=== PATIENT | male | born 1985 | race Caucasian/White ===

== ENCOUNTER 2020-11-14 15:41 | Outpatient (REF) | payer MEDICARE, MEDICAID, SELFPAY ==
--- NOTE | 2020-11-14 15:48 | XR_ITS ---
EXAMINATION: XR HAND, LEFT CLINICAL INFORMATION: Soft tissue infection COMPARISON: Previous left hand and wrist x-ray October 2017 TECHNIQUE: PA, lateral, and oblique views of the left hand. FINDINGS: Bone alignment is normal. No fracture or dislocation is seen. There are mild degenerative changes at the first SHELTER joint. Joint spaces are otherwise normal. Soft tissues are normal. XR/XR hand LT min 3V IMPRESSION: Mild arthritis at the first SHELTER joint.
== END 2020-11-14 15:42 | disposition home or self-care (01) ==
LOC: HO.HMGCX 15:41
PROVIDERS: PCP Internal Medicine; Visit Provider Nurse Practitioner Family
DX: L08.9 Local infection of the skin and subcutaneous tissue, unspecified (principal)
CPT/HCPCS: 73130

== ENCOUNTER 2021-07-01 | Outpatient (REF) | payer MEDICARE, MEDICAID, SELFPAY | END 2021-07-01 00:01 | disposition home or self-care (01) | LOC: HO.LNP | PROVIDERS: Visit Provider Hospitalist | DX: L98.499 Non-pressure chronic ulcer of skin of other sites with unspecified severity (principal) | CPT/HCPCS: 87071; 87077; 87186; 87205 ==

== ENCOUNTER 2021-07-09 08:00 | Outpatient (RCR) | payer MEDICARE, MEDICAID, SELFPAY ==
--- NOTE | ~2021-07-09 | XR_ITS ---
EXAMINATION: XR ELBOW, RIGHT CLINICAL INFORMATION: Nonhealing wound COMPARISON: X-ray the right elbow October 2017 TECHNIQUE: 4 views of the right elbow FINDINGS: Exam is slightly limited given the obliquity of some of the projections and/or positioning. Probable edema or soft tissue swelling along the medial posterior aspect of the elbow and proximal forearm. Possible mild arthrosis of the humeral ulnar joint No effusion. No fracture. XR/XR elbow RT min 3V IMPRESSION: Slightly limited examination given projections. Probable mild subcutaneous edema Question mild arthrosis of the humeral ulnar joint I do not see a soft tissue defect
== END 2021-09-17 09:16 | disposition home or self-care (01) ==
LOC: HO.WCC 08:00
PROVIDERS: PCP Internal Medicine; Visit Provider Physician Assistant
DX: Z09 Encounter for follow-up examination after completed treatment for conditions other than malignant neoplasm (principal); M70.21 Olecranon bursitis, right elbow; L94.1 Linear scleroderma; Z87.2 Personal history of diseases of the skin and subcutaneous tissue
CPT/HCPCS: 73080; 99212; 99213

== ENCOUNTER 2021-08-08 09:09 | Outpatient (REF) | payer MEDICARE, MEDICAID, SELFPAY ==
--- NOTE | ~2021-08-08 | NM_ITS ---
EXAMINATION: NM RADIONUCLIDE WHITE BLOOD CELL STUDY CLINICAL INFORMATION: Right elbow wound, rule out osteomyelitis. COMPARISON: Radiographs of the right elbow dated 07/11/[address] scan of the abdomen and pelvis dated 08/23/2018 are available for comparison. TECHNIQUE: Initial rapid sequence images were obtained over the chest and upper extremities during the bolus injection of of 7.1 mCi Tc-99m Ceretec labeled autologous white cells. Multiple gamma scintillation camera images of the whole-body with multiple views of the chest and upper extremities were performed 3 hours later. Additional images of the chest and abdomen were obtained to demonstrate physiological white blood cell tagging. FINDINGS: Initial rapid sequence images show no foci of abnormally increased flow at any site. The blood pool images obtained immediately following the flow study show no foci of abnormally increased activity, in particular in the right elbow region. There is a rounded focus of relatively decreased activity present in the inferior lateral aspect of the right lobe of the liver which may represent the liver contour at this site but a mass at this site cannot be excluded. The delayed static images show no foci of abnormally increased activity at any site. In particular, there is no abnormal activity in the region of the right elbow. Again noted is a rounded markedly photopenic region in the inferior right lateral aspect of the liver. Also, there is moderate enlargement of the spleen which measures approximately 16 cm in greatest length. NM/NM white blood scan IMPRESSION: 1. There are no foci of abnormal activity at any site suggest a focus of infection. In particular, there is no abnormal activity in the right elbow region suspicious for focus of infection at this site. 2. A rounded photopenic defect in the region of the inferior lateral aspect of the right lobe of the liver is noted, and this is of uncertain clinical significance. While this may represent the shape of the liver in this region, a mass at this site cannot be ruled out. Further characterization of this region with a CT scan of the abdomen performed with intravenous contrast is recommended.
== END 2021-08-08 09:10 | disposition home or self-care (01) ==
LOC: HO.MRI 09:09
PROVIDERS: Visit Provider Physician Assistant
DX: S51.001D Unspecified open wound of right elbow, subsequent encounter (principal)
CPT/HCPCS: 78306; A9521

== ENCOUNTER → 2021-09-25 15:02 | Outpatient (REF) | payer MEDICARE, MEDICAID, SELFPAY ==
--- NOTE | 2021-09-25 15:05 | HM_ITS ---
Total monitoring time 3 days and 10 hours. Underlying rhythm is sinus. Minimum heart rate 75/Min. Maximum 154/Min. Average 102/Min. No atrial fibrillation or flutter or AV blocks or pauses. Frequent supraventricular ectopy; isolated beats, couplets, short runs; longest 22 beats. Overall burden 7%. Occasional PVCs-3 morphologies, 25 couplets. Minimal burden. Patient's symptoms including palpitations, skipping, shortness of breath associated with supraventricular and ventricular ectopy, sinus tachycardia. MTDD
== END ==
LOC: HO.CARD 15:02
PROVIDERS: PCP Internal Medicine; Visit Provider Nurse Practitioner Family
DX: R00.2 Palpitations (principal)
CPT/HCPCS: 93242

== ENCOUNTER 2023-02-04 14:45 | Outpatient (REF) | payer MEDICARE, MEDICAID, SELFPAY | END 2023-02-04 14:46 | disposition home or self-care (01) | LOC: HO.LAB 14:45 | PROVIDERS: Visit Provider Pharmacist | DX: Z13.89 Encounter for screening for other disorder (principal) ==

== ENCOUNTER 2023-08-18 12:34 | Outpatient (AMB) | payer OTHER, MEDICAID, SELFPAY ==
[2023-08-18 12:36] VITALS: BP 130/92; PULSE 84; O2SAT 99; BMI 27.9
--- NOTE | 2023-08-18 12:36 | MHC.PC.OV ---
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 Accompanied by: Self / Same As Patient Allergies shellfish Allergy (Unknown, Uncoded 08/18/23 13:07) anaphylaxis Medication List - Last Reconciled 08/18/23 by Jd Kumar MD aspirin 81 mg PO DAILY blood pressure monitor As directed epinephrine 0.3 mg IM ONCE PRN ergocalciferol (vitamin D2) 1,250 mcg PO QWEEK gabapentin 300 mg PO TID ibuprofen 800 mg PO BID PRN metoprolol succinate ER 25 mg PO DAILY omeprazole 40 mg PO DAILY prednisone 10 mg PO DAILY PRN sildenafil (pulm.hypertension) 20 mg PO TID vitamin A 1 cap PO DAILY zinc sulfate 100 mg PO BEDTIME Tobacco use date assessed: 08/18/23 Dental Screening Dental Screen Date: 08/18/23 Did you have a dental visit in the last 12 months?: No Did you have a dental problem in the last 6 months where you did not have access to dental care?: No Was dental information given to patient?: No HPI Annual Physical HPI Details Patient comes in today for his annual physical examination States that he is still experiencing diffuse pain and multiple joint pains - chronic Patient has systemic sclerosis and is currently receiving chemotherapy with rheumatology at [facility] in [place] every few weeks States that he has noticed that his blood pressure has been running high often lately Reports (+) on and off headaches at times; denies any dizziness He denies any exertional chest pains; states that he does have some MARTINEZ at times Still has occasional palpitations but states that they are mostly mild and transient and not like the ones he had before his cardiac ablation in 2019 No nausea/vomiting, no abdominal pain - states that 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 and he is on Omeprazole 40 mg daily to prophylax against reflux disease and ulcers States that he already had EGD done a couple of times in the past No change in bowel habits noted - has intermittent loose stools, which is also chronic Denies any acute urinary symptoms Relates that he has problems sleeping at night on a daily basis for a while now; has taken some OTC Melatonin in the past, which helps somewhat but states that he does not take it daily as he prefers not to take additional meds as much as possible considering that he is already on a lot of medications [facility] Medical History (Updated 08/24/23 @ 04:48 by Jd Kumar MD) Vitamin D deficiency Pulmonary hypertension Systemic sclerosis Atrial fibrillation Scleroderma Surgical History (Updated 08/18/23 @ 13:49 by Jd Kumar MD) History of penile implant Hx of foot surgery (~06/2023) History of radiofrequency ablation (RFA) procedure for cardiac arrhythmia (~06/2019) History of insertion of tunneled central venous catheter (CVC) with port Family History Mother No problems noted. Father No problems noted. Social History Housing: Apartment Alcohol intake: current Alcohol intake frequency: holidays/special occasions only Alcohol type: wine Patient Tobacco Use Status: Never used Tobacco e-Cigarette/Vaping Use: Never Used Second Hand Smoke Exposure: No service: No Current occupational status: disabled Cognitive needs: Yes (Cane) Hearing needs: No Vision needs: Yes (Glasses) Questionnaire PHQ-9 Over the last 2 weeks, how often have you been bothered by any of the following problems? 1. Little interest or pleasure in doing things: not at all 2. Feeling down, depressed, or hopeless: not at all 3. Trouble falling or staying asleep, or sleeping too much: not at all 4. Feeling tired or having little energy: not at all 5. Poor appetite or overeating: not at all 6. Feeling bad about yourself - or that you are a failure or have let yourself or your family down: not at all 7. Trouble concentrating on things, such as reading the newspaper or watching television: not at all 8. Moving or speaking so slowly that other people could have noticed. Or the opposite - being so fidgety or restless that you have been moving around a lot more than usual: not at all 9. Thoughts that you would be better off or of hurting yourself in some way: not at all Total score: 0 Depression Screening Interpretation: Negative Depression Screening Done: Yes 89755 - PHQ-9 Billing: Yes Source: Developed by Drs. Alberto Leger, Alyssa Laureano, Gautam Estes and colleagues, with an educational reji from [employer]. Thrive Questionnaire Date Thrive assessed: 08/18/23 I am a: Patient What is your living situation today?: I have a steady place to live Within the past 12 months, did the food you bought not last and you didn't have the money to get more?: Never true Within the past 12 months, did you worry whether your food would run out before you got money to buy more?: Never true Do you have trouble paying for medicines?: No Do you have trouble getting transportation to medical appointments?: No Do you have trouble paying your heating and electricity bill?: No Do you have trouble taking care of your child, family member or friend?: No Do you have trouble with day-to-day activities such as bathing, preparing meals, shopping, managing finances, etc.?: No Are you currently unemployed and looking for a job?: No Are you interested in more education?: No Please select the resources that you would like help with: None Currently or been in a relationship where the following occur: no concerns reported AUDIT C Alcohol Use Questionnaire (AUDIT-C) 1. How often do you have a drink containing alcohol?: 2-4 times a month 2. How many drinks containing alcohol do you have on a typical day when you are drinking?: 1 or 2 3. How often do you have six or more drinks on one occasion?: Never Total Score: 2 Score Reviewed/Action Taken: Yes GOVIND-7 AMB Questionnaire GOVIND-7 Date GOVIND - 7 assessed: 08/18/23 Feeling nervous, anxious, or on edge: 0 = Not at all Not being able to stop or control worryin = Not at all Worrying too much about different things: 0 = Not at all Trouble relaxin = Not at all Being so restless that it is hard to sit still: 0 = Not at all Becoming easily annoyed or irritable: 0 = Not at all Feeling afraid as if something awful might happen: 0 = Not at all Total GOVIND-7 score (0-4 normal; 5-9 mild; 10-14 moderate; 15-21 severe): 0 Source: Developed by Drs. Alberto Leger, Alyssa Laureano, Gautam Estes and colleagues, with an educational reji from [employer]. GOVIND-7 Assessment Billing GOVIND-7 Assessment Tool: GOVIND-7 Assessment 55410 Review of Systems Const Denies chills, Reports difficulty sleeping, Reports fatigue, Denies fever(s), Reports headache(s) (on and off), Denies malaise and Denies weakness Eyes Denies blurry vision, Denies change in vision, Denies irritation and Denies itchy eyes ENT Denies dysphagia, Denies dizziness, Denies otalgia, Reports headache(s) (on and off), Denies nasal congestion, Denies neck pain, Denies odynophagia and Denies sore throat Card Denies chest pain, Denies rapid heart rate, Denies irregular heart rhythm, Reports palpitations (occasional palpitations) and Reports dyspnea on exertion (mild) Resp Denies chest congestion, Denies cough, Reports dyspnea on exertion (mild) and Denies wheezing GI Denies abdominal pain, Denies bloating, Denies constipation, Denies dysphagia, Denies heartburn, Reports loose stools (intermittent - chronic), Denies nausea, Denies odynophagia and Denies vomiting Denies hematuria, Denies difficulty urinating, Denies dysuria, Denies urinary frequency and Denies urinary urgency Musc Denies back pain, Reports myalgias (diffuse), Reports arthralgias (involving multiple joint), Denies joint swelling, Denies muscle weakness and Denies neck pain Skin/Breast Denies change in pigmentation, Denies lesions, Denies rash and Denies unusual bruising Neuro Denies dizziness, Reports headache(s) (on and off), Denies paresthesias and Denies weakness Endo Reports fatigue and Reports palpitations (occasional palpitations) Aller/Immun Denies itchy eyes and Denies wheezing Physical exam (Primary Care) Vital Signs: Last Vital Signs Pulse 84 08/18/23 12:36 BP 130/92 H 08/18/23 12:36 Pulse Ox 99 08/18/23 12:36 Oxygen Delivery Method Room Air 08/18/23 12:36 BMI result Body Mass Index 27.9 Tobacco/Smoking Status: Tobacco use Status Tobacco use date assessed 08/18/23 08/18/23 12:43 Patient Tobacco Use Status Never used Tobacco 08/18/23 12:43 e-Cigarette/Vaping Use Never Used 08/18/23 12:43 PHQ-9: PHQ-9 Score PHQ-9: Total score 0 08/18/23 13:49 Depression Screening Interpretation: Negative Thrive Assessment: Date of Thrive Assessment Date Thrive assessed 08/18/23 08/18/23 12:43 Currently or been in a relationship where the following occur: no concerns reported Const General: no acute distress, alert and awake Orientation/consciousness: patient oriented x3 HENMT Head: Yes normocephalic and Yes atraumatic Ears: external ears normal, TM's normal bilaterally and EAC's normal General nose exam: No nasal discharge present Face and sinus: Yes normal facial exam and Yes sinuses nontender Teeth and gingiva: dentition normal Throat: Yes posterior oropharynx normal and Yes tonsils normal (no TP congestion) Eyes Eyelids: Yes eyelids normal Conjunctivae: conjunctivae normal Pupils: Equal, round and reactive pupils present EOM: EOMs intact bilaterally Neck Neck: Yes no lymphadenopathy and Yes supple Thyroid: Thyroid normal Resp Auscultation: clear to auscultation bilaterally, no rales and no wheezes Cardio Rate: regular rate Rhythm: regular rhythm Heart sounds: no murmurs GI Palpation (GI): Soft to palpation, nontender and No hepatosplenomegaly present Auscultation: normal bowel sounds General: Yes no CVA tenderness Back/Spine/Pelvis Back: no CVA tenderness Thoracic/Lumbar Spine: thoracic and lumbar spine normal to inspection Skin Lesions: no lesions Rashes: no rashes Neuro General: patient oriented x3, moves all extremities, no focal motor deficits and CN's II-XI intact bilaterally Cranial nerves: Yes Equal, round and reactive pupils present Cognition (Neuro): normal cognition Gait exam (Neuro): Normal gait present Extrem General: Yes no clubbing, cyanosis or edema Assessment and Plan Assessment & Plan (1) Annual physical exam: Code(s): Z00.00 - Encounter for general adult medical examination without abnormal findings Plan: Check labs (2) Systemic sclerosis: Code(s): M34.9 - Systemic sclerosis, unspecified Plan: Patient was on Mycophenolate 500 mg 3 tablets BID in the past - is unclear whether he is still on this Rx at this time Continue Prednisone 10 mg QD States that he is currently receiving chemotherapy at [facility] every few weeks and continues to follow-up with Rheumatology in [place] regularly He is also on Omeprazole 40 mg QD to help as prophylaxis against ulcers and acid reflux disease as he states that 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 States that he already had EGD done a couple of times in the past (3) Pulmonary hypertension: Code(s): I27.20 - Pulmonary hypertension, unspecified Plan: Continue Sildenafil 20 mg TID (4) Intermittent palpitations: Code(s): R00.2 - Palpitations Plan: S/P cardiac ablation in 2019 Continue Metoprolol ER 25 mg QD and Aspirin 81 mg QD Follow up with cardiology as scheduled (5) Vitamin D deficiency: Code(s): E55.9 - Vitamin D deficiency, unspecified Plan: Continue Vitamin D2 1250 mcg once a week (6) Arthralgia: Code(s): M25.50 - Pain in unspecified joint Qualifiers: Joint pain location: unspecified Qualified Code(s): M25.50 - Pain in unspecified joint Plan: Continue Gabapentin 300 mg TID and Ibuprofen 800 mg TID PRN with food Plan Follow up in 3 months Orders: Orders Lipid Panel 08/18/23 E78.00 - Pure hypercholesterolemia, unspecified, M34.9 - Systemic sclerosis, unspecified, Z00.00 - Encounter for general adult medical examination without abnormal findings TSH reflex Free T4 08/18/23 E78.00 - Pure hypercholesterolemia, unspecified, M34.9 - Systemic sclerosis, unspecified, Z00.00 - Encounter for general adult medical examination without abnormal findings UA CC w/rflx Micro + Cult 08/18/23 M34.9 - Systemic sclerosis, unspecified, R30.0 - Dysuria, Z00.00 - Encounter for general adult medical examination without abnormal findings Vitamin D 25-OH Total 08/18/23 E55.9 - Vitamin D deficiency, unspecified, M34.9 - Systemic sclerosis, unspecified, Z00.00 - Encounter for general adult medical examination without abnormal findings Erythrocyte Sedimentation Rate 08/18/23 M25.50 - Pain in unspecified joint, M34.9 - Systemic sclerosis, unspecified EBENEZER Reflex Titer and Pattern 08/18/23 M25.50 - Pain in unspecified joint, M34.9 - Systemic sclerosis, unspecified Complete Blood Count Auto Diff 08/18/23 M34.9 - Systemic sclerosis, unspecified, R03.0 - Elevated blood-pressure reading, without diagnosis of hypertension, Z00.00 - Encounter for general adult medical examination without abnormal findings Comprehensive [place]. Panel Fast 08/18/23 E78.00 - Pure hypercholesterolemia, unspecified, M34.9 - Systemic sclerosis, unspecified, R03.0 - Elevated blood-pressure reading, without diagnosis of hypertension, Z00.00 - Encounter for general adult medical examination without abnormal findings C Reactive Protein 08/18/23 M25.50 - Pain in unspecified joint, M34.9 - Systemic sclerosis, unspecified Coding Level of Care Code Est Pt Prev Care 18-39y(43781) Diagnoses Annual physical exam Z00.00 Systemic sclerosis M34.9 Pulmonary hypertension I27.20 Intermittent palpitations R00.2 Vitamin D deficiency E55.9 Arthralgia, unspecified joint M25.50 Joint pain location: unspecified Additional Codes GOVIND-7 Assessment Billing - GOVIND-7 Assessment Tool: GOVIND-7 Assessment 51671 ([id number])
== END 2023-08-18 13:40 | disposition home or self-care (01) ==
PROVIDERS: PCP Internal Medicine; Visit Provider Internal Medicine
DX: Z00.00 Encounter for general adult medical examination without abnormal findings (principal); M34.9 Systemic sclerosis, unspecified; I27.20 Pulmonary hypertension, unspecified; R00.2 Palpitations; E55.9 Vitamin D deficiency, unspecified; M25.50 Pain in unspecified joint
CPT/HCPCS: 99395

== ENCOUNTER 2023-12-17 10:07 | Outpatient (AMB) | payer OTHER, MEDICAID, SELFPAY ==
--- NOTE | 2023-12-17 11:18 | MHC.OFFWIV ---
Intake Vital Signs 12/17/23 11:26 Weight 199 lb BP 130/82 Blood Pressure Location Lt brachial Position Sitting Pulse 89 Pulse Source Pulse Oximeter Temp 97.7 F Temp Source Oral Pulse Oximetry (%) 98 Oxygen Delivery Method Room Air Intake Visit Reasons: EST/congetion/ cough ([id number]) Intake Note: Patient here for congestion, sore throat and slight cough that has been present since thursday. Patient Tobacco Use Status: Never used Tobacco Allergies shellfish Allergy (Unknown, Uncoded 12/17/23 11:19) anaphylaxis Do you need a note to return to daycare/school/sports/work: No HPI EST/congetion/ cough ([id number]) HPI Details This is a 38-year-old male patient who presents today with a one-week history of chest congestion, nasal congestion, sore throat, dry cough, ear pressure. He states that he has mucus production in the morning with thick/green sputum, however otherwise has had a dry cough. Denies any fever or chills. Denies shortness of breath. Has been taking [id number] Mucinex with some minor benefit. History of systemic scleroderma. [facility] Medical History Upper respiratory infection Vitamin D deficiency Pulmonary hypertension Systemic sclerosis Atrial fibrillation Scleroderma Surgical History History of penile implant Hx of foot surgery (~06/2023) History of radiofrequency ablation (RFA) procedure for cardiac arrhythmia (~06/2019) History of insertion of tunneled central venous catheter (CVC) with port Family History Mother No problems noted. Father No problems noted. Social History Housing: Apartment Alcohol intake: current Alcohol intake frequency: holidays/special occasions only Alcohol type: wine Patient Tobacco Use Status: Never used Tobacco e-Cigarette/Vaping Use: Never Used Second Hand Smoke Exposure: No service: No Current occupational status: disabled Cognitive needs: Yes (Cane) Hearing needs: No Vision needs: Yes (Glasses) Review of Systems Const All systems reviewed & are unremarkable except as noted in HPI and below Physical Exam Vital Signs: Last Vital Signs Temp 97.7 F 12/17/23 11:26 Pulse 89 12/17/23 11:26 BP 130/82 12/17/23 11:26 Pulse Ox 98 12/17/23 11:26 Oxygen Delivery Method Room Air 12/17/23 11:26 Const General: cooperative and no acute distress HEENT Head: Yes normal to inspection Ears: hearing grossly normal bilaterally, external ears normal and TM's normal bilaterally General nose exam: Normal external nose present and Normal nasal mucous membranes and turbinates present Face and sinus: Yes normal facial exam Mouth: Normal oral and palatal mucosa present Throat: Yes posterior oropharynx abnormal (mild erythema) Neck Neck: Yes no lymphadenopathy Resp Effort & Inspection: normal respiratory effort and Actively coughing Quality: dry Auscultation: clear to auscultation bilaterally Cardio Jugular venous distension: no JVD Palpation: normal PMI Rate: regular rate Rhythm: regular rhythm Extrem General: Yes capillary refill normal and Yes no clubbing, cyanosis or edema Psych Appearance: grossly normal Mental Status: mental status grossly normal Speech and movement: Normal speech and movement present Assessment & Plan Assessment & Plan (1) Upper respiratory infection: Code(s): J06.9 - Acute upper respiratory infection, unspecified Qualifiers: URI type: unspecified URI Qualified Code(s): J06.9 - Acute upper respiratory infection, unspecified Plan: Will start patient on a short course of antibiotics. We reviewed indications, use, possible side effects of these. He can continue to take OTC Mucinex as needed for symptomatic management. COVID/flu/RSV swab was obtained today and patient aware he will be notified of these results once they are available. If he does not improve with time and treatment, or symptoms worsen/new symptoms develop, he should return to the clinic for further evaluation. He verbalizes understanding and agrees to plan. Orders: Orders SARS-CoV2/FLU/RSV Today J06.9 - Acute upper respiratory infection, unspecified Medications: New azithromycin For 250 mg dose pack: take 500 mg today (day 1), then 250 mg for 4 days (days 2-5) PO 6 tabs 0RF J06.9 - Acute upper respiratory infection, unspecified Coding Level of Care Code Est Pt Level 3 (04349) Diagnoses Upper respiratory tract infection, unspecified type J06.9 URI type: unspecified URI
[2023-12-17 11:26] VITALS: BP 130/82; PULSE 89; TEMP 36.5; O2SAT 98
== END 2023-12-17 11:56 | disposition home or self-care (01) ==
PROVIDERS: PCP Internal Medicine; Visit Provider Nurse Practitioner Family
DX: J06.9 Acute upper respiratory infection, unspecified (principal)
CPT/HCPCS: 99213

== ENCOUNTER 2023-12-17 11:36 | Outpatient (REF) | payer OTHER, MEDICAID, SELFPAY ==
[2023-12-17 16:48] LABS: Influenza A PCR NEGATIVE (Negative); Influenza B PCR NEGATIVE (Negative); Resp Syncy Virus RNA Qual PCR NEGATIVE (Negative); SARS COV2 PCR INHOUSE NEGATIVE (Negative)
== END 2023-12-17 11:37 | disposition home or self-care (01) ==
LOC: HO.LAB 11:36
PROVIDERS: Visit Provider Nurse Practitioner Family
DX: J06.9 Acute upper respiratory infection, unspecified (principal)
CPT/HCPCS: 0241U

== ENCOUNTER 2024-01-27 09:16 | Emergency (ER) | payer OTHER, SELFPAY ==
--- NOTE | 2024-01-27 09:19 | ECG_ITS ---
Test Reason : afib? Blood Pressure : / mmHG Vent. Rate : 158 BPM Atrial Rate : 316 BPM P-R Int : 000 ms QRS Dur : 072 ms QT Int : 286 ms P-R-T Axes : 256 -47 -26 degrees QTc Int : 463 ms Atrial flutter with 2:1 A-V conduction Pulmonary disease pattern Left anterior fascicular block Nonspecific ST and T wave abnormality Abnormal ECG When compared with ECG of 04-OCT-2017 18:17, Atrial flutter has replaced Atrial fibrillation Left anterior fascicular block is now Present ST now depressed in Inferior leads Inverted T waves have replaced nonspecific T wave abnormality in Inferior leads Referred By: Generic ED Physician Electronically Signed By:AMAN LOPEZ MD
[2024-01-27 09:42] VITALS: BP 99/72; PULSE 150; RESP 18; TEMP 37; O2SAT 99; BMI 26.2
--- NOTE | 2024-01-27 10:06 | MHC.EDTECH ---
Pt brought back to room 1, changed into hospital gown and put on resolution agent/bp cuff/pulse ox. Call zamarripa within reach
--- NOTE | 2024-01-27 10:21 | ED.CHESTPAIN ---
HPI - Chest Pain General Chief Complaint: Chest Pain Stated Complaint: Afib Time Seen by Provider: 01/27/24 10:03 Source: patient Mode of arrival: ambulatory History of Present Illness HPI narrative: 38-year-old male with systemic scleroderma and currently undergoing chemotherapy in [place] and has a remote history atrial fibrillation with the use of chronic anticoagulation but after going through ablation therapy has not required any medications until he woke up this morning stating that he felt terrible, short of breath, like his heart was racing and weak. Related Data Home Medications ?Medication ?Instructions ?Recorded ?Confirmed gabapentin 300 mg capsule 300 mg PO TID 08/28/20 08/18/23 metoprolol succinate 25 mg 25 mg PO DAILY 08/28/20 08/18/23 tablet,extended release 24 hr sildenafil (pulm.hypertension) 20 20 mg PO TID 09/03/21 08/18/23 mg tablet vitamin A 3,000 mcg (10,000 unit) 1 cap PO DAILY 09/03/21 08/18/23 capsule epinephrine 0.3 mg/0.3 mL 0.3 mg IM ONCE PRN anaphylaxis 08/18/23 08/18/23 injection, auto-injector ergocalciferol (vitamin D2) 1,250 1,250 mcg PO QWEEK 08/18/23 08/18/23 mcg (50,000 unit) capsule ibuprofen 800 mg tablet 800 mg PO BID PRN pain 08/18/23 08/18/23 zinc sulfate 50 mg zinc (220 mg) 100 mg PO BEDTIME 08/18/23 08/18/23 capsule Previous Rx's ?Medication ?Instructions ?Recorded omeprazole 40 mg capsule,delayed 40 mg PO DAILY #30 caps 10/14/22 release blood pressure monitor #1 ea 07/29/23 azithromycin 250 mg tablet See Rx Instructions PO .COMPLEX #6 12/17/23 tabs Allergies Allergy/AdvReac Type Severity Reaction Status Date / Time shellfish Allergy Unknown anaphylaxis Uncoded 01/27/24 09:45 Review of Systems Review of Systems: Pertinent positives and negatives as stated in HPI PMFSH Past Medical History Source: nursing notes reviewed Medical History Upper respiratory infection Vitamin D deficiency Pulmonary hypertension Systemic sclerosis Atrial fibrillation Scleroderma Surgical History History of penile implant Hx of foot surgery (~06/2023) History of radiofrequency ablation (RFA) procedure for cardiac arrhythmia (~06/2019) History of insertion of tunneled central venous catheter (CVC) with port Family History Family History Mother No problems noted. Father No problems noted. Social History Social History Housing: Apartment Alcohol intake: current Alcohol intake frequency: holidays/special occasions only Alcohol type: wine Patient Tobacco Use Status: Never used Tobacco Smoked in Last 30 Days: No e-Cigarette/Vaping Use: Never Used Second Hand Smoke Exposure: No Use of substances other than those prescribed or required for medical reasons: No Advance Directives: No Advance Directives Information Provided: No service: No Current occupational status: disabled Cognitive needs: Yes (Cane) Hearing needs: No Vision needs: Yes (Glasses) Physical Exam Vital Signs: Vital Signs: Last Vital Signs Temp 98.1 F 01/27/24 12:47 Pulse 92 01/27/24 12:47 Resp 13 01/27/24 12:47 BP 109/78 01/27/24 12:47 Pulse Ox 100 01/27/24 12:47 O2 Del Method Room Air 01/27/24 12:47 BMI result Body Mass Index 26.2 VITAL SIGNS: Reviewed. GENERAL: Well developed, well nourished, in no acute distress. HEAD: Normocephalic/atraumatic EYES: PERRLA, EOMI EARS: Ext canals without abnormality, TMs non-bulging and non-erythematous NOSE: Nares patent bilateral OROPHARYNX: no oral lesions noted, posterior pharynx clear and non-erythematous without noted tonsillar enlargement/erythema/exudates NECK: Supple, no adenopathy LUNGS: Normal breath sounds. No adventitious sounds or accessory muscle use. SpO2<99> CARDIOVASCULAR: Regular rate and rhythm without noted murmurs ABDOMEN: Soft, non-tender, non-distended with bowel sounds. MUSCULOSKELETAL: No tenderness, deformities, or effusions noted on gross inspection. EXTREMITIES: No cyanosis, clubbing or edema. SKIN: Inspection of the skin reveals chronic flat reddish rash to face NEUROLOGIC: Alert and oriented x 4. Strength and sensation to light touch were grossly intact x 4, cranial nerves 2-12 are grossly intact, no facial asymmetry.. Medications Administered Discontinued Medications Generic Name Dose Route Start Last Admin Trade Name Prema PRN Reason Stop Dose Admin Acetaminophen 975 mg 01/27/24 13:01 01/27/24 13:16 Acetaminophen 325 Mg Tablet PO 01/27/24 13:02 975 mg ONCE ONE Administration Medical Decision Making Medical Decision Making [facility] Narrative: 1045: 38-year-old male with history and clinical presentation, DDX: Atrial fibrillation with RVR and will rule out infection, anemia, electrolyte derangements. Patient has had no recent medication changes and states that he is medication compliant. Dr Ramiro Geiger, Technical Services Consultant, 1055: Patient appears to have converted to normal sinus rhythm with a rate 99. I reviewed all investigations and hematologic indices are grossly within normal limits as there is no leukocytosis, there is a stable microcytic anemia, no thrombocytopenia. Coagulation studies mildly elevated but patient denies any use of chronic anticoagulation. Chemistry indices negative for ABI/electrolyte or liver enzyme derangements. Inflammatory markers ESR/CRP are both within normal limits. Urinalysis is negative for UTI or hematuria. Toxicology is negative. Viral testing is negative for influenza/RSV/COVID-19. All results discussed with the patient at bedside and I did discuss the case with cardiology regarding possible resumption and recommendation at this time is that there is no need for OAC with low risk. Patient is otherwise discharged and will follow-up with his physicians. Differential Diagnosis Differential Diagnoses: The differential diagnosis associated with the presentation includes Please see the discussion above Admission/Observation Consideration of admission/observation: Escalation of care including admission/observation considered Please see the discussion above Consult Healthcare Provider Management of the patient was discussed with: [employer] Please see the discussion above Lab Data [facility] Lab Attestation statement: I reviewed the patient's lab results. Please see the discussion above 01/27/24 10:47 01/27/24 10:46 Labs: Lab Results 01/27/24 01/27/24 01/27/24 Range/Units 10:46 10:47 11:23 WBC 8.1 (4.8-10.8) X10*3/uL RBC 6.01 H (4.60-5.80) X10*6/uL Hgb 12.9 L (14.0-18.0) g/dl Hct 42.8 (42.0-52.0) % MCV 71.2 L (80.0-98.0) fL MCH 21.5 L (27.0-33.0) pg MCHC 30.1 L (31.0-36.0) g/dl RDW 19.8 H (11.0-16.0) % Plt Count 206 (160-400) X10*3/uL MPV Not Reportable Immature Gran % (Auto) 0.5 H (0.0-0.4) % Neut % (Auto) 68.7 (45-73) % Lymph % (Auto) 16.7 L (20-40) % [place] % (Auto) 12.3 H (2-11) % Eos % (Auto) 1.4 (0-4) % Baso % (Auto) 0.4 (0-2) % Lymph # (Auto) 1.4 (1.2-4.9) X10*3/uL [place] # (Auto) 1.0 (0.1-1.2) X10*3/uL Eos # (Auto) 0.1 (0.0-0.4) X10*3/uL Baso # (Auto) 0.0 (0.0-0.2) X10*3/uL Abs Immat Gran (auto) 0.04 H (0.00-0.03) X10*3/uL Absolute Neuts (auto) 5.6 (2.0-8.3) x10*3/uL Absolute Nucleated RBC 0.000 (0.0-0.012) X10*3/uL Nucleated RBC % (auto) 0.0 (0.0-0.2) /100WBC Smear Tech's Comments VERIFIED ESR 5 (0-15) MM/HR PT (11.1-13.3) SEC INR (0.9-1.1) Sodium 141 (135-145) mmol/L Potassium 3.5 (3.3-5.1) mmol/L Chloride 111 H (96-108) mmol/L Carbon Dioxide 21 L (22-29) mmol/L Anion Gap 13 (12-20) BUN 7 L (9-16) mg/dL Creatinine 0.50 (0.5-1.4) mg/dL Estim Creat Clear Calc 217.5 Estimated GFR > 60 Random Glucose 84 (60-115) mg/dL Lactic Acid 0.8 (0.5-2.0) mmol/L Calcium 8.7 D (8.4-10.2) mg/dL Total Bilirubin 0.5 (0.0-1.0) mg/dL AST 32 (5-37) U/L ALT 33 (0-40) U/L Alkaline Phosphatase 120 H (39-117) U/L C-Reactive Protein 0.22 (< or = 0.50) mg/dL Total Protein 7.8 (6.5-8.0) g/dL Albumin 3.9 (3.5-5.0) g/dL Urine Color Urine Appearance Urine pH (5.0-9.0) Ur Specific [place] (1.005-1.025) Urine Protein (Neg-Trace) mg/dL Urine Glucose (UA) (Negative) mg/dL Urine Ketones (Negative) mg/dL Urine Blood (Negative) Urine Nitrite (Negative) Ur Leukocyte Esterase (Negative) Urine Opiates Screen (Not Detect) Urine Fentanyl Screen (Not Detect) Ur Barbiturates Screen (Not Detect) Ur Phencyclidine Scrn (Not Detect) Ur Amphetamines Screen (Not Detect) U Benzodiazepines Scrn (Not Detect) Urine Cocaine Screen (Not Detect) U Marijuana (THC) Screen (Not Detect) Ethyl Alcohol < 10 mg/dL Influenza Type A (PCR) NEGATIVE (Negative) Influenza Type B (PCR) NEGATIVE (Negative) RSV RNA Qual (PCR) NEGATIVE (Negative) SARS-CoV-2 RNA (RT-PCR) NEGATIVE (Negative) 01/27/24 01/27/24 01/27/24 Range/Units 11:24 12:52 12:53 WBC (4.8-10.8) X10*3/uL RBC (4.60-5.80) X10*6/uL Hgb (14.0-18.0) g/dl Hct (42.0-52.0) % MCV (80.0-98.0) fL MCH (27.0-33.0) pg MCHC (31.0-36.0) g/dl RDW (11.0-16.0) % Plt Count (160-400) X10*3/uL MPV Immature Gran % (Auto) (0.0-0.4) % Neut % (Auto) (45-73) % Lymph % (Auto) (20-40) % [place] % (Auto) (2-11) % Eos % (Auto) (0-4) % Baso % (Auto) (0-2) % Lymph # (Auto) (1.2-4.9) X10*3/uL [place] # (Auto) (0.1-1.2) X10*3/uL Eos # (Auto) (0.0-0.4) X10*3/uL Baso # (Auto) (0.0-0.2) X10*3/uL Abs Immat Gran (auto) (0.00-0.03) X10*3/uL Absolute Neuts (auto) (2.0-8.3) x10*3/uL Absolute Nucleated RBC (0.0-0.012) X10*3/uL Nucleated RBC % (auto) (0.0-0.2) /100WBC Smear Tech's Comments ESR (0-15) MM/HR PT 14.9 H (11.1-13.3) SEC INR 1.2 H (0.9-1.1) Sodium (135-145) mmol/L Potassium (3.3-5.1) mmol/L Chloride (96-108) mmol/L Carbon Dioxide (22-29) mmol/L Anion Gap (12-20) BUN (9-16) mg/dL Creatinine (0.5-1.4) mg/dL Estim Creat Clear Calc Estimated GFR Random Glucose (60-115) mg/dL Lactic Acid (0.5-2.0) mmol/L Calcium (8.4-10.2) mg/dL Total Bilirubin (0.0-1.0) mg/dL AST (5-37) U/L ALT (0-40) U/L Alkaline Phosphatase (39-117) U/L C-Reactive Protein (< or = 0.50) mg/dL Total Protein (6.5-8.0) g/dL Albumin (3.5-5.0) g/dL Urine Color Yellow Urine Appearance Clear Urine pH 6.0 (5.0-9.0) Ur Specific [place] 1.015 (1.005-1.025) Urine Protein Negative (Neg-Trace) mg/dL Urine Glucose (UA) Negative (Negative) mg/dL Urine Ketones Negative (Negative) mg/dL Urine Blood Negative (Negative) Urine Nitrite Negative (Negative) Ur Leukocyte Esterase Negative (Negative) Urine Opiates Screen Not Detected (Not Detect) Urine Fentanyl Screen Not Detected (Not Detect) Ur Barbiturates Screen Not Detected (Not Detect) Ur Phencyclidine Scrn Not Detected (Not Detect) Ur Amphetamines Screen Not Detected (Not Detect) U Benzodiazepines Scrn Not Detected (Not Detect) Urine Cocaine Screen Not Detected (Not Detect) U Marijuana (THC) Screen Not Detected (Not Detect) Ethyl Alcohol mg/dL Influenza Type A (PCR) (Negative) Influenza Type B (PCR) (Negative) RSV RNA Qual (PCR) (Negative) SARS-CoV-2 RNA (RT-PCR) (Negative) Independent Interpretation I performed an independent interpretation of an: EKG Interpretation: Atrial flutter with RVR, 2:1, no STEMI, QRS/QTC is within normal limits. 1111: Sinus rhythm, HR-96, no STEMI, MA/QRS/QTC is within normal limits. External Record Review External record reviewed: Outpatient record, Prior outpatient labs and Prior outpatient radiology Chronic Conditions Systemic scleroderma Critical Care Time Critical Care Time Critical Care Time: Yes Total Critical Care Time: 60 Attestation: I personally attest to this time spent taking care of the patient. Discharge Plan Discharge Clinical Impression: Atrial flutter with rapid ventricular response Patient Disposition: Home, Self-Care Instructions: Atrial Flutter (ED) Additional Instructions: 1. Resume all home medications as prescribed. 2. Your workup today has been negative, your inflammatory markers are negative, you have spontaneously converted into a sinus rhythm, there is no indication restart blood thinners at this time. 3. Please follow-up with your primary care doctor as well as your physician in [place]. Do not hesitate to return to the emergency room for any worsening of symptoms. Prescriptions: No Action omeprazole 40 mg capsule,delayed release(DR/EC) 40 mg PO DAILY Qty: 30 3RF (DME) blood pressure monitor Kit See Rx Instructions .Route Qty: 1 0RF Rx Instructions: As directed metoprolol succinate 25 mg tablet extended release 24 hr 25 mg PO DAILY gabapentin 300 mg capsule 300 mg PO TID epinephrine 0.3 mg/0.3 mL auto-injector 0.3 mg IM ONCE PRN (Reason: anaphylaxis) sildenafil (pulm.hypertension) 20 mg tablet 20 mg PO TID vitamin A 10,000 unit capsule 1 cap PO DAILY ergocalciferol (vitamin D2) 1,250 mcg (50,000 unit) capsule 1,250 mcg PO QWEEK zinc sulfate 50 mg zinc (220 mg) capsule 100 mg PO BEDTIME ibuprofen 800 mg tablet 800 mg PO BID PRN (Reason: pain) azithromycin 250 mg tablet See Rx Instructions PO .COMPLEX Qty: 6 0RF Rx Instructions: For 250 mg dose pack: take 500 mg today (day 1), then 250 mg for 4 days (days 2-5) PO Referrals: Jd Kumar MD [Primary Care Provider] - Print Language: Slovenian
[2024-01-27 10:52] VITALS: BP 105/75; PULSE 98; RESP 17; O2SAT 100
--- NOTE | 2024-01-27 10:55 | ECG_ITS ---
Test Reason : rhytm change Blood Pressure : / mmHG Vent. Rate : 096 BPM Atrial Rate : 096 BPM P-R Int : 136 ms QRS Dur : 078 ms QT Int : 350 ms P-R-T Axes : 051 -33 -04 degrees QTc Int : 442 ms Sinus rhythm with sinus arrhythmia with occasional Premature ventricular complexes Left axis deviation Possible Anterior infarct , age undetermined Abnormal ECG When compared with ECG of 27-JAN-2024 09:21, Sinus rhythm has replaced Atrial flutter Vent. rate has decreased BY [address] no longer depressed in Anterior leads T wave inversion no longer evident in Anterior leads Referred By: Debi Dodson Electronically Signed By:AMAN LOPEZ MD
[2024-01-27 10:57] LABS: Hemoglobin 12.9 g/dl (14.0-18.0); Imm Gran Abs Auto 0.04 X10*3/uL (0.00-0.03); Imm Gran Pct Auto 0.5 % (0.0-0.4); MANUAL DIFF FLAG SCAN; Mean Corpuscular Volume 71.2 fL (80.0-98.0); SCAN SMEAR FLAG 1
[2024-01-27 10:59] LABS: Basophils Percent Auto 0.4 % (0-2); Eosinophils Absolute Auto 0.1 X10*3/uL (0.0-0.4); Eosinophils Percent Auto 1.4 % (0-4); Hematocrit 42.8 % (42.0-52.0); Lymphocytes Absolute Auto 1.4 X10*3/uL (1.2-4.9); Lymphocytes Percent Auto 16.7 % (20-40); Mean Corpuscular HGB Conc 30.1 g/dl (31.0-36.0); Mean Corpuscular Hemoglobin 21.5 pg (27.0-33.0); Monocytes Percent Auto 12.3 % (2-11); Neutrophils Absolute Auto 5.6 x10*3/uL (2.0-8.3); Neutrophils Percent Auto 68.7 % (45-73); PLT CLUMP 1; Red Blood Count 6.01 X10*6/uL (4.60-5.80); Red Cell Distribution Width 19.8 % (11.0-16.0)
--- NOTE | 2024-01-27 11:01 | PC.NURSE ---
PT PORT-A-CATH IS ACCESS WITH A [employer] PAC # 20. PT TOLERATE WELL. LAB DRAWS DONE. PT IS A/O X 4 NO SOB/RADHAMES NOTED SPEAKS IN FULL SENTENCES. PT C/O 6/10 CHEST TIGHTNESS.
[2024-01-27 11:02] LABS: PLT ABN DIST 1
[2024-01-27 11:07] LABS: Lactic Acid 0.8 mmol/L (0.5-2.0)
[2024-01-27 11:09] LABS: C Reactive Protein 0.22 mg/dL (< or = 0.50)
[2024-01-27 11:12] LABS: Alanine Aminotransferase 33 U/L (0-40); Albumin Level 3.9 g/dL (3.5-5.0); Alkaline Phosphatase 120 U/L (39-117); Anion Gap 13 (12-20); Aspartate Amino Transferase 32 U/L (5-37); Bilirubin Total 0.5 mg/dL (0.0-1.0); Blood Urea Nitrogen 7 mg/dL (9-16); Calcium 8.7 mg/dL (8.4-10.2); Carbon Dioxide 21 mmol/L (22-29); Chloride 111 mmol/L (96-108); Creatinine Clr Calc Pharmacy 217.5; Estimated Glomerular Filt Rate > 60; Ethanol < 10 mg/dL; Glucose Random 84 mg/dL (60-115); Potassium 3.5 mmol/L (3.3-5.1); Sodium 141 mmol/L (135-145); Total Protein 7.8 g/dL (6.5-8.0)
[2024-01-27 11:37] LABS: INTERNATIONAL NORM RATIO 1.2 (0.9-1.1); Prothrombin Time 14.9 SEC (11.1-13.3)
[2024-01-27 12:08] LABS: Platelet Count 206 X10*3/uL (160-400); SLIDE REVIEW VERIFIED; White Blood Count 8.1 X10*3/uL (4.8-10.8)
[2024-01-27 12:16] LABS: Influenza A PCR NEGATIVE (Negative); Influenza B PCR NEGATIVE (Negative); Resp Syncy Virus RNA Qual PCR NEGATIVE (Negative); SARS COV2 PCR INHOUSE NEGATIVE (Negative)
[2024-01-27 12:27] LABS: Erythrocyte Sedimentation Rate 5 MM/HR (0-15)
[2024-01-27 12:47] VITALS: BP 109/78; PULSE 92; RESP 13; TEMP 36.7; O2SAT 100
[2024-01-27 13:07] LABS: Appearance Urine Clear; Color Urine Yellow; Glucose Urine UA Negative (Negative); Leukocyte Esterase Urine Negative (Negative); Nitrite Urine Negative (Negative); Specific Gravity - Urine 1.015 (1.005-1.025); Urine Blood Negative (Negative); Urine Ketones Negative (Negative); Urine Protein Negative (Neg-Trace)
[2024-01-27] MEDS: Acetaminophen 325 MG TABLET 975 MG PO (13:16)
[2024-01-27 13:18] LABS: Amphetamine Screen Urine Not Detected (Not Detect); Barbiturates, Urine Not Detected (Not Detect); Benzodiazepines Screen Urine Not Detected (Not Detect); Cannabinoid Screen Urine Not Detected (Not Detect); Cocaine Screen Urine Not Detected (Not Detect); Fentanyl, urine Not Detected (Not Detect); Opiate Screen Urine Not Detected (Not Detect); Phencyclidine Screen Urine Not Detected (Not Detect)
[2024-01-27 14:18] VITALS: BP 109/78; PULSE 92; RESP 13; TEMP 36.7; O2SAT 100
== END 2024-01-27 14:30 | disposition home or self-care (01) ==
PROVIDERS: Emergency Provider Student in an Organized Health Care Education/Training Program; PCP Internal Medicine
DX: I48.92 Unspecified atrial flutter (principal); R07.89 Other chest pain; I48.20 Chronic atrial fibrillation, unspecified; Z11.52 Encounter for screening for COVID-19; Z20.822 Contact with and (suspected) exposure to COVID-19; Z51.81 Encounter for therapeutic drug level monitoring; Z79.01 Long term (current) use of anticoagulants; Z79.899 Other long term (current) drug therapy
CPT/HCPCS: 0241U; 36415; 80053; 80307; 81003; 83605; 85025; 85610; 85652; 86140; 87040; 93005; 99285; J1642

== ENCOUNTER → 2024-01-27 09:19 | Outpatient (BNV) | payer OTHER, SELFPAY | PROVIDERS: Emergency Provider Student in an Organized Health Care Education/Training Program; PCP Internal Medicine; Visit Provider Internal Medicine Cardiovascular Disease | DX: R94.31 Abnormal electrocardiogram [ECG] [EKG] (principal) | CPT/HCPCS: 93010 ==

== ENCOUNTER 2024-07-12 09:05 | Inpatient (IN) | payer OTHER, SELFPAY ==
[2024-07-12] VITALS (8 sets, daily range): BP systolic 97–135; BP diastolic 59–94; PULSE 81–165; RESP 10–20; TEMP 36.8–36.9; O2SAT 97–100; BMI 27.6
--- NOTE | ~2024-07-12 | US_ITS ---
EXAMINATION: US TRIPLEX LOWER EXTREMITY, RIGHT CLINICAL INFORMATION: Deep venous thrombosis, worsening pain COMPARISON: Ultrasound from 07/12/2024 TECHNIQUE: Color-flow triplex imaging with spectral analysis and compression Doppler were performed on the right lower extremity. FINDINGS: Occlusive echogenic thrombus again seen throughout the right superficial femoral vein. Thrombus is seen extending just beyond the confluence with the profunda femoral vein and into the common femoral vein by approximately 2 cm without occlusive changes. The profunda femoral vein does appear patent on color flow Doppler. More proximal common femoral vein demonstrates normal compressibility with patent color flow. The great saphenous vein, popliteal vein and calf veins are patent US/US venous duplex LE RT IMPRESSION: Persistent occlusive thrombus in the right superficial femoral vein with extension into the common femoral vein. It is difficult to tell if this is increased compared to the prior exam as there is no true 1-1 corresponding images between the current examination and the prior examination Electronically signed by: Khang Gill MD 07/14/2024 01:56 PM EDT
--- NOTE | ~2024-07-12 | US_ITS ---
EXAMINATION: US TRIPLEX LOWER EXTREMITY, BILATERAL CLINICAL INFORMATION: Right thigh pain COMPARISON: None available. TECHNIQUE: Color-flow triplex imaging with spectral analysis and compression Doppler were performed on the bilateral lower extremities. FINDINGS: Echogenic thrombus and noncompressibility seen within the right superficial femoral vein. No significant flow on color flow or duplex Doppler. The visualized right common femoral vein, profunda femoral vein, popliteal vein and midcalf peroneal and posterior tibial venous segments show no evidence of deep venous thrombosis. The visualized left common femoral vein, superficial femoral vein, profunda femoral vein, popliteal vein and midcalf peroneal and posterior tibial venous segments show no evidence of deep venous thrombosis. There is no Worthy's cyst. US/US venous duplex LE BI IMPRESSION: 1. Deep venous thrombosis involving the right superficial femoral vein. 2. No evidence of deep venous thrombosis involving the left lower extremity. Electronically signed by: Khang Gill MD 07/12/2024 11:01 AM EDT Workstation: [id number]
--- NOTE | ~2024-07-12 | CT_ITS ---
EXAMINATION: CT ANGIOGRAPHY CHEST (PE PROTOCOL) CLINICAL INFORMATION: Deep venous thrombosis right lower extremity. Tachycardia. Evaluate for pulmonary embolus COMPARISON: Portions of a previous CT using standard protocol 10/03/17 TECHNIQUE: Multiple helically acquired CT images were obtained on a multi detector row scanner. 65 mL of Omnipaque 350 were administered intravenously. Maximum intensity projections were performed. Contemporaneous supervision by the interpreting radiologist. This CT examination was performed using dose optimization techniques as appropriate, variously including the following: *Automated exposure control *Adjustment of mA and/or kV according to patient size (this includes techniques or standardized protocols for targeted exams where dose is matched to indication/reason for exam; i.e. extremities or head) *Use of iterative reconstruction technique DLP: 512 mGy-cm. FINDINGS: Digital reading efficiency course director: There is a vascular catheter. Devices project over the patient. There are low lung volumes. Quality: Adequate PULMONARY ARTERIES: There is artifact limiting fine detail. There is acute pulmonary embolus in a segmental branch in the anterolateral left lower lobe (series 6, image 199). Subsegmental pulmonary artery branches are not well evaluated. The main pulmonary artery is dilated. There is no thoracic aortic aneurysm. The vascular catheter terminates in the region of the right atrium. No significant coronary calcification. PERICARDIUM: No significant fluid, thickening or calcification EXTRACARDIAC ANATOMY: Lungs: No suspicious abnormality of the trachea or mainstem bronchi. There are low lung volumes. There is no acute focal pneumonia. Nonspecific lung base opacities may be atelectasis.. Mediastinum: The esophagus is dilated. There are no enlarged lymph nodes.. Chest wall: No enlarged lymph nodes. No chest wall mass. Visualized upper abdomen: Limited assessment. I suspect fatty change in the liver. MUSCULOSKELETAL: No suspicious focal lesion CT/CT angio chest PE protocol IMPRESSION: There is acute segmental left lower lobe pulmonary embolus. The study is limited. VTE: Positive This critical result was discussed with VENKATESH Adhikari at 1809 on 07/12/24 and it was ascertained that the content and urgency of the report was understood at the time of direct communication. Electronically signed by: Damion Almodovar MD 07/12/2024 06:09 PM EDT
[2024-07-12] MEDS: diazePAM 2 MG TABLET 1 MG PO (09:55)
[2024-07-12 09:56] LABS: MANUAL DIFF FLAG NO
--- NOTE | 2024-07-12 09:59 | PC.NURSE ---
port accessed on the right side of chest. no complications noted. access secured w/ dressing. +blood return. smooth/easy flush. unable to obtain labs w/ decent blood flow - tech obtained labs/sent to lab. medication administered per provider order. effectiveness pending. ultrasound currently being completed at this time. plan of care ongoing. call zamarripa placed within reach.
[2024-07-12 10:00] LABS: Basophils Percent Auto 0.1 % (0-2); Eosinophils Absolute Auto 0.1 X10*3/uL (0.0-0.4); Eosinophils Percent Auto 1.3 % (0-4); Hematocrit 38.8 % (42.0-52.0); Hemoglobin 11.8 g/dl (14.0-18.0); Imm Gran Abs Auto 0.02 X10*3/uL (0.00-0.03); Imm Gran Pct Auto 0.3 % (0.0-0.4); Lymphocytes Percent Auto 15.3 % (20-40); Mean Corpuscular HGB Conc 30.4 g/dl (31.0-36.0); Mean Corpuscular Hemoglobin 22.1 pg (27.0-33.0); Mean Corpuscular Volume 72.8 fL (80.0-98.0); Monocytes Absolute Auto 0.9 X10*3/uL (0.1-1.2); Monocytes Percent Auto 13.9 % (2-11); Neutrophils Absolute Auto 4.6 x10*3/uL (2.0-8.3); Neutrophils Percent Auto 69.1 % (45-73); Platelet Count 149 X10*3/uL (160-400); Red Blood Count 5.33 X10*6/uL (4.60-5.80); Red Cell Distribution Width 19.5 % (11.0-16.0); White Blood Count 6.7 X10*3/uL (4.8-10.8)
--- NOTE | 2024-07-12 10:05 | ED.EXTPRO ---
HPI - Extremity Problem General Chief complaint: Extremity Injury, Lower Stated complaint: Blood clot? Sent by Time Seen by Provider: 07/12/24 09:22 Source: patient Mode of arrival: ambulatory Limitations: no limitations History of Present Illness ED Provider: Mark Gordon PA-C HPI Narrative: 38-year-old male with history of scleroderma, myositis, on chemotherapy at [facility], history of atrial fibrillation s/p ablation 3 years ago, not currently on anticoagulation who presents to the ER for evaluation of worsening right thigh cramping and pain that has been present for the last 3 weeks. He was recently seen by his stage driver in [place] and had lab workup. His D-dimer was negative. He was due for chemotherapy on June 27 but did not go because he was not feeling well. He states his right thigh has been extremely painful, worse with any exertion or weight-bearing. He also has had swelling in both of his legs, right worse than left, especially when he is on his feet for a long time. He denies any chest pain or shortness of breath but he has had intermittent palpitations for the last several weeks as well. He feels like his heart is racing at times. He states he previously was on Eliquis and metoprolol but he was taken off of it after his ablation. He is due to see his publicity agent again soon MD Complaint: extremity pain and extremity swelling Onset (ago): week(s) (3) Pain Consistency: constant Location: right and lower extremity Severity scale (1-10): 8 Quality: stabbing, aching and sharp Radiation: distal Relieving factors: rest Exacerbating factors: range of motion, walking and palpation Related Data Home Medications ?Medication ?Instructions ?Recorded ?Confirmed gabapentin 300 mg capsule 300 mg PO TID 08/28/20 08/18/23 metoprolol succinate 25 mg 25 mg PO DAILY 08/28/20 08/18/23 tablet,extended release 24 hr sildenafil (pulm.hypertension) 20 20 mg PO TID 09/03/21 08/18/23 mg tablet vitamin A 3,000 mcg (10,000 unit) 1 cap PO DAILY 09/03/21 08/18/23 capsule epinephrine 0.3 mg/0.3 mL 0.3 mg IM ONCE PRN anaphylaxis 08/18/23 08/18/23 injection, auto-injector ergocalciferol (vitamin D2) 1,250 1,250 mcg PO QWEEK 08/18/23 08/18/23 mcg (50,000 unit) capsule ibuprofen 800 mg tablet 800 mg PO BID PRN pain 08/18/23 08/18/23 zinc sulfate 50 mg zinc (220 mg) 100 mg PO BEDTIME 08/18/23 08/18/23 capsule Previous Rx's ?Medication ?Instructions ?Recorded omeprazole 40 mg capsule,delayed 40 mg PO DAILY #30 caps 10/14/22 release blood pressure monitor #1 ea 07/29/23 azithromycin 250 mg tablet See Rx Instructions PO .COMPLEX #6 12/17/23 tabs apixaban 5 mg (74 tabs) tablets in 5 mg PO BID #74 ea 07/12/24 a dose pack ([place] [employer] DVT-PE Treat 30D Start) metoprolol succinate 25 mg 25 mg PO DAILY #30 tabs 07/12/24 tablet,extended release 24 hr (Toprol XL) Allergies Allergy/AdvReac Type Severity Reaction Status Date / Time shellfish Allergy Unknown anaphylaxis Uncoded 07/12/24 09:13 Review of Systems Review of Systems: Yes all other systems are reviewed and are negative PMFSH Past Medical History Medical History Upper respiratory infection Vitamin D deficiency Pulmonary hypertension Systemic sclerosis Atrial fibrillation Scleroderma Surgical History History of penile implant Hx of foot surgery (~06/2023) History of radiofrequency ablation (RFA) procedure for cardiac arrhythmia (~06/2019) History of insertion of tunneled central venous catheter (CVC) with port Family History Family History Mother No problems noted. Father No problems noted. Social History Social History Housing: Apartment Alcohol intake: current Alcohol intake frequency: holidays/special occasions only Alcohol type: wine Patient Tobacco Use Status: Never used Tobacco Smoked in Last 30 Days: No e-Cigarette/Vaping Use: Never Used Second Hand Smoke Exposure: No Use of substances other than those prescribed or required for medical reasons: No Advance Directives: Yes Advance Directives Information Provided: Yes Advance Directives on File: No service: No Current occupational status: disabled Cognitive needs: Yes (Cane) Hearing needs: No Vision needs: Yes (Glasses) Physical Exam Vital Signs: Vital Signs: Last Vital Signs Temp 98.2 F 07/12/24 13:55 Pulse 148 H 07/12/24 14:10 Resp 18 07/12/24 13:55 BP 121/74 07/12/24 14:10 Pulse Ox 99 07/12/24 13:55 O2 Del Method Room Air 07/12/24 13:55 BMI result Body Mass Index 27.6 Appearance: Alert. Oriented X3. No acute distress. Head: normocephalic, atraumatic. Eyes: Pupils equal, round and reactive to light. ENT: Pharynx normal. No tonsillar swelling or exudate. Neck: Normal inspection. Neck supple. CVS: Normal heart rate and rhythm. Pulses normal. Respiratory: No respiratory distress. Breath sounds normal. Abdomen: Soft and nontender. +BS x4 Skin: Skin warm and dry. Normal skin color. Normal skin turgor. Scattered erythematous, flat rash on the face Extremities: Right anterior thigh with significant tenderness of the soft tissues of the medial aspect, probable muscle spasm. Trace lower extremity edema of the lower legs. No joint swelling. Neuro/psych: Oriented X 3. No motor deficit. No sensory deficit. CN II-XII intact. Normal speech and cognition. Course Reevaluation(s) Reevaluation #1: Patient had 1 episode of rapid AFib/a flutter that resolved with a 5 of IV Lopressor. Patient had a recurrent episode with heart rates up to the 160s. Repeat dose of IV Lopressor and as well as oral Lopressor were ordered. Time: 14:04 Reevaluation #2: Patient re-evaluated, sleeping comfortably. Heart rates 130s, additional IV lopressor ordered. Time: 14:46 Reevaluation #3: Patient remains tachycardic in the 130s. He has a headache and palpitations. No shortness a breath or chest pain. Right lower extremity pain is returning. Case discussed with Dr. Herman via a tiger text, recommending 10 of IV diltiazem x2, initiation of diltiazem infusion if not responding. Will plan to admit for further management. Patient agrees with plan. Time: 15:21 Medications Administered Discontinued Medications Generic Name Dose Route Start Last Admin Trade Name Prema PRN Reason Stop Dose Admin Acetaminophen 975 mg 07/12/24 12:28 07/12/24 12:39 Acetaminophen 325 Mg Tablet PO 07/12/24 12:29 975 mg ONCE ONE Administration Diazepam 1 mg 07/12/24 09:33 07/12/24 09:55 Diazepam 2 Mg Tablet PO 07/12/24 09:34 1 mg ONCE ONE Administration Sodium Chloride 1,000 mls @ 999 mls/hr 07/12/24 11:00 07/12/24 10:59 Ns IVCONT 07/12/24 12:00 999 mls/hr .Q1H1M IVETT Administration Ketorolac Tromethamine 15 mg 07/12/24 10:48 07/12/24 10:57 Ketorolac Tromethamine 15 Mg/Ml Vial IVPUSH 07/12/24 10:49 15 mg ONCE ONE Administration Lidocaine 1 patch 07/12/24 12:28 07/12/24 12:38 Lidocaine 4 % Patch Adh..Patch TRANSDERMA 07/12/24 12:29 1 patch ONCE ONE Administration Protocol Metoprolol Tartrate 5 mg 07/12/24 10:48 07/12/24 11:00 Metoprolol Tartrate 5 Mg/5 Ml Vial IVPUSH 07/12/24 10:49 5 mg ONCE ONE Administration Protocol Metoprolol Tartrate 5 mg 07/12/24 13:50 07/12/24 13:55 Metoprolol Tartrate 5 Mg/5 Ml Vial IVPUSH 07/12/24 13:51 5 mg ONCE ONE Administration Protocol Metoprolol Tartrate 25 mg 07/12/24 13:52 07/12/24 14:10 Metoprolol Tartrate 25 Mg Tablet PO 07/12/24 13:53 25 mg ONCE ONE Administration Protocol Metoprolol Tartrate 5 mg 07/12/24 14:47 07/12/24 15:00 Metoprolol Tartrate 5 Mg/5 Ml Vial IVPUSH 07/12/24 14:48 5 mg ONCE ONE Administration Protocol Oxycodone HCl 5 mg 07/12/24 10:48 07/12/24 10:58 Oxycodone Hcl Immed Release 5 Mg Tablet PO 07/12/24 10:49 5 mg ONCE ONE Administration Oxycodone HCl 5 mg 07/12/24 12:28 07/12/24 12:39 Oxycodone Hcl Immed Release 5 Mg Tablet PO 07/12/24 12:29 5 mg ONCE ONE Administration Medical Decision Making Medical Decision Making [facility] Narrative: 58-year-old male with history of scleroderma and myositis on active chemotherapy at [facility], history of atrial fibrillation not on anticoagulation after his ablation 3 years ago who presents to the ER for evaluation of worsening right lower extremity pain and swelling for the last 3 weeks. He had basic lab workup done with his stage driver (Dr. Geiger) in [place] 3 weeks ago including a negative D-dimer, unremarkable CPK and inflammatory markers. Spoke with his stage driver at [facility]. Recommending repeating all tests and get lower extremity Dopplers today. Recommended refraining from initiation of steroids. He has tenderness of his right thigh on examination. Leg is warm and well perfused, doubt arterial disease. Lower extremity Doppler was ordered which did show deep venous thrombosis in the right superficial femoral vein consistent with where his pain & tenderness are on exam. Patient counseled on results and need to reinitiate anticoagulation. While in the ER patient had recurrent episodes AFib/a flutter with heart rates into the 160s. First episode broke into normal sinus rhythm after 5 mg of IV Lopressor. He maintained in normal sinus rhythm however went back into rapid a flutter/fib with rates into the 160s again. Blood pressure remained stable. He was given additional 5 mg of IV Lopressor, oral 25 mg of Lopressor and he persisted in AFib. He was not in any pain or discomfort, no symptoms, sleeping comfortably. Third dose of IV Lopressor was ordered. Cardiology was consulted who is recommending initiation of diltiazem pushes and infusion if no response. Will admit the patient for further management. Anticoagulation to be decided by hospitalist/cardiology. Differential Diagnosis Differential Diagnoses: The differential diagnosis associated with the presentation includes DVT, myositis flare, arterial disease, muscle tear Admission/Observation Consideration of admission/observation: Escalation of care including admission/observation considered Consult Healthcare Provider Management of the patient was discussed with: Hospitalist Lab Data [facility] Lab Attestation statement: I reviewed the patient's lab results. Mild anemia, mild thrombocytopenia 07/12/24 09:51 07/12/24 09:51 Labs: Lab Results 07/12/24 Range/Units 09:51 WBC 6.7 (4.8-10.8) X10*3/uL RBC 5.33 (4.60-5.80) X10*6/uL Hgb 11.8 L (14.0-18.0) g/dl Hct 38.8 L (42.0-52.0) % MCV 72.8 L (80.0-98.0) fL MCH 22.1 L (27.0-33.0) pg MCHC 30.4 L (31.0-36.0) g/dl RDW 19.5 H (11.0-16.0) % Plt Count 149 L D (160-400) X10*3/uL MPV Not Reportable Immature Gran % (Auto) 0.3 (0.0-0.4) % Neut % (Auto) 69.1 (45-73) % Lymph % (Auto) 15.3 L (20-40) % [place] % (Auto) 13.9 H (2-11) % Eos % (Auto) 1.3 (0-4) % Baso % (Auto) 0.1 (0-2) % Lymph # (Auto) 1.0 L (1.2-4.9) X10*3/uL [place] # (Auto) 0.9 (0.1-1.2) X10*3/uL Eos # (Auto) 0.1 (0.0-0.4) X10*3/uL Baso # (Auto) 0.0 (0.0-0.2) X10*3/uL Abs Immat Gran (auto) 0.02 (0.00-0.03) X10*3/uL Absolute Neuts (auto) 4.6 (2.0-8.3) x10*3/uL Absolute Nucleated RBC 0.000 (0.0-0.012) X10*3/uL Nucleated RBC % (auto) 0.0 (0.0-0.2) /100WBC ESR 17 H (0-15) MM/HR Sodium 140 (135-145) mmol/L Potassium 4.2 (3.3-5.1) mmol/L Chloride 108 (96-108) mmol/L Carbon Dioxide 24 (22-29) mmol/L Anion Gap 12 (12-20) BUN 5 L (9-16) mg/dL Creatinine 0.53 (0.5-1.4) mg/dL Estim Creat Clear Calc 205.2 Estimated GFR > 60 Random Glucose 94 (60-115) mg/dL Calcium 9.1 (8.4-10.2) mg/dL Magnesium 1.9 (1.6-2.6) mg/dL Total Bilirubin 0.7 (0.0-1.0) mg/dL Direct Bilirubin 0.3 (0.0-0.5) mg/dL AST 37 (5-37) U/L ALT 36 (0-40) U/L Alkaline Phosphatase 140 H (39-117) U/L Total Creatine Kinase 94 (38-174) U/L C-Reactive Protein 6.06 H (< or = 0.50) mg/dL Total Protein 8.4 H (6.5-8.0) g/dL Albumin 4.1 (3.5-5.0) g/dL Independent Interpretation I performed an independent interpretation of an: EKG and Ultrasound Interpretation: EKG with atrial flutter, 2-1 conduction with saw tooth pattern present, ventricular rate 138 beats per minute, no ST segment elevations or depressions. US with visible clot Radiology Impression Discussion of test interpretation with radiology: I have reviewed the radiologist's reading. Radiologist Impression: US/US venous duplex LE BI IMPRESSION: 1. Deep venous thrombosis involving the right superficial femoral vein. 2. No evidence of deep venous thrombosis involving the left lower extremity. External Record Review External record reviewed: Outpatient record, Prior outpatient labs and Prior outpatient radiology Tests considered The following testing was considered but not selected: CTA chest considered, would not change management administrator Prescription Management I considered prescription management with: Pain Medication and Other (Anticoagulation, antiarrhythmic) Chronic Conditions Patient?s care impacted by: Other (Scleroderma, myositis) Critical Care Time Critical Care Time Critical Care Time: Yes Total Critical Care Time: 55 Attestation: I have personally provided critical care time exclusive of time spent on separately billable procedures. Time includes review of lab data, radiology results, discussion with consultants, and monitoring for potential decompensation. Intervention performed as documented. Discharge Plan Discharge Patient Disposition: Admitted As Inpatient Print Language: [place]
[2024-07-12 10:15] LABS: Alanine Aminotransferase 36 U/L (0-40); Albumin Level 4.1 g/dL (3.5-5.0); Alkaline Phosphatase 140 U/L (39-117); Anion Gap 12 (12-20); Aspartate Amino Transferase 37 U/L (5-37); Bilirubin Direct 0.3 mg/dL (0.0-0.5); Bilirubin Total 0.7 mg/dL (0.0-1.0); Blood Urea Nitrogen 5 mg/dL (9-16); C Reactive Protein 6.06 mg/dL (< or = 0.50); Calcium 9.1 mg/dL (8.4-10.2); Carbon Dioxide 24 mmol/L (22-29); Chloride 108 mmol/L (96-108); Creatinine Clr Calc Pharmacy 205.2; Estimated Glomerular Filt Rate > 60; Glucose Random 94 mg/dL (60-115); Magnesium 1.9 mg/dL (1.6-2.6); Potassium 4.2 mmol/L (3.3-5.1); Sodium 140 mmol/L (135-145); Total Protein 8.4 g/dL (6.5-8.0)
[2024-07-12 10:38] LABS: Erythrocyte Sedimentation Rate 17 MM/HR (0-15)
--- NOTE | 2024-07-12 10:44 | ECG_ITS ---
Test Reason : palpitations Blood Pressure : / mmHG Vent. Rate : 138 BPM Atrial Rate : 276 BPM P-R Int : 000 ms QRS Dur : 084 ms QT Int : 292 ms P-R-T Axes : 000 -16 011 degrees QTc Int : 442 ms Sinus tachycardia Minimal voltage criteria for LVH, may be normal variant ( R in aVL ) Nonspecific ST abnormality Abnormal ECG When compared with ECG of 27-JAN-2024 11:01, ST elevation now present in Inferior leads Referred By: Leeanna Gordon Electronically Signed By:ZAK GUPTA
--- NOTE | 2024-07-12 10:49 | PC.NURSE ---
pt verbalizes feeling chest palpitations. court monitor displays afib - HR between 130-140 bpm. ekg performed/provided to MD. plan of care ongoing.
[2024-07-12] MEDS: Ketorolac Tromethamine 15 MG/ML VIAL IVPUSH (10:57)
[2024-07-12] MEDS: oxyCODONE HCl Immed Release 5 MG TABLET PO ×2 (10:58→12:39)
[2024-07-12] MEDS: 0.9 % Sodium Chloride 1,000 ML 999 ML IVCONT (10:59)
[2024-07-12] MEDS: Metoprolol Tartrate 5 MG/5 ML VIAL IVPUSH ×3 (11:00→15:00)
--- NOTE | 2024-07-12 11:31 | PC.NURSE ---
pt verbalizing chest palpitations subsided post medication administration. HR decreased to approx. 85-90 bpm. nsr. no longer actively in afib. provider notified/aware.
[2024-07-12] MEDS: Lidocaine 4 % Patch ADH..PATCH 1 PATCH TRANSDERMA (12:38)
[2024-07-12] MEDS: Acetaminophen 325 MG TABLET 975 MG PO (12:39)
--- NOTE | 2024-07-12 12:49 | PC.NURSE ---
pt verbalizing increase in pain despite medication administration. pt remedicated per provider order. effectiveness pending.
--- NOTE | 2024-07-12 13:56 | PC.NURSE ---
this RN called to the bedside d/t pt c/o increased chest palpitations/ULLOA/lightheadedness. pt displays w/ sinus tachycardic on the groundwater monitoring technician - as high as 165bpm. provider notified/aware. medication administered per provider order. effectiveness pending.
[2024-07-12] MEDS: Metoprolol Tartrate 25 MG TABLET PO ×2 (14:10→21:40)
[2024-07-12] MEDS: dilTIAZem HCL 50 MG/10 ML VIAL 10 MG IVPUSH (15:25)
--- NOTE | 2024-07-12 16:42 | PM.IMHP ---
History of Present Illness Date of Service: 07/12/24 Attending physician on admission: Rolan Vyas Chief Complaint: RLE pain and swelling 38-year-old male with history of systemic scleroderma on Ocrevus immunotherapy (follows with [facility], last dose 08/2023-has missed multiple infusion appts per Dr. Geiger), myositis, s/p penile implant, and paroxysmal atrial fibrillation s/p cardioversion x 2 and ablation 4 years ago no longer on ac presented to the ED earlier today for evaluation of pain and swelling in the right thigh ongoing x 3 weeks. Recently had labs at [facility] with negative ddimer but was ultimately unable to undergo infusion due to URI. The thigh has been very painful, 7/10 at rest, and 10/10 with ambulation or any exertion. He does report intermittent palpitations and has noted HR up to 170 on smart watch has notbeen sustained since the ablation. No lighteadedness, sob, chest pains, syncope. Since arrival, patient has had heart rates up to 160, vital signs otherwise stable. No hypotension or hypoxia though oximetry has been borderline low 92%. Show a chronic mild microcytic anemia. Renal function normal, electrolyte levels normal. CRP 6.06, ESR 17. Venous duplex shows DVT of the superficial right femoral vein. EKG shows atrial flutter with 2-[address] conduction with minimal st elevations in inferior leads- likely rate related, rate 138. IN the ed, given IV ketorolac, lidocaine patch, 5 mg IV Lopressor x 3, 10 mg IV, and 25 mg metoprolol, diltiazem x1. Also given 1 mg diazepam and oxycodone for pain. Review of Systems Review of Systems: Yes all other systems are reviewed and are negative [facility] Medical History Upper respiratory infection Vitamin D deficiency Pulmonary hypertension Systemic sclerosis Atrial fibrillation Scleroderma Family History Mother No problems noted. Father No problems noted. Surgical History History of penile implant Hx of foot surgery (~06/2023) History of radiofrequency ablation (RFA) procedure for cardiac arrhythmia (~06/2019) History of insertion of tunneled central venous catheter (CVC) with port Social History Housing: Apartment Alcohol intake: current Alcohol intake frequency: holidays/special occasions only Alcohol type: wine Patient Tobacco Use Status: Never used Tobacco Smoked in Last 30 Days: No e-Cigarette/Vaping Use: Never Used Second Hand Smoke Exposure: No Use of substances other than those prescribed or required for medical reasons: No Advance Directives: Yes Advance Directives Information Provided: Yes Advance Directives on File: No service: No Current occupational status: disabled Cognitive needs: Yes (Cane) Hearing needs: No Vision needs: Yes (Glasses) Meds Allergies Allergy/AdvReac Type Severity Reaction Status Date / Time shellfish Allergy Unknown anaphylaxis Uncoded 07/12/24 09:13 Active Medications: Current Medications Acetaminophen (Acetaminophen 325 Mg Tablet) 650 mg PO Q6H PRN PRN Reason: Pain, Mild (Pain Scale 1-3), fever or headache Calcium Carbonate (Calcium Carbonate 750 Mg Tab.Chew) 750 mg PO Q4H PRN PRN Reason: Heartburn Magnesium Hydroxide (Milk Of Magnesia 30 Ml Oral.Susp) 30 ml PO DAILY PRN PRN Reason: Constipation Melatonin (Melatonin 3 Mg Tablet) 6 mg PO BEDTIME PRN PRN Reason: Insomnia Morphine Sulfate (Morphine Sulfate 4 Mg/Ml Cartridge) 2 mg IVPUSH Q4H PRN; Protocol PRN Reason: Pain, Severe (Pain Scale 7-10) Oxycodone HCl (Oxycodone Hcl Immed Release 5 Mg Tablet) 5 mg PO Q6H PRN PRN Reason: Pain, Moderate(Pain Scale 4-6) Sodium Chloride (0.9 % Sodium Chloride Flush 3 Ml Syringe) [facility] Medications ?Medication ?Instructions ?Recorded ?Confirmed ?Last Taken ?Type gabapentin 300 mg capsule 300 mg PO TID PRN Pain 08/28/20 07/12/24 Unknown History vitamin A 3,000 mcg (10,000 unit) 1 cap PO DAILY 09/03/21 07/12/24 07/11/24 History capsule ergocalciferol (vitamin D2) 1,250 1,250 mcg PO MO 08/18/23 07/12/24 07/11/24 History mcg (50,000 unit) capsule zinc sulfate 50 mg zinc (220 mg) 100 mg PO BEDTIME 10/31/23 09/24/24 09/23/24 History capsule Physical Exam Vital Signs and Narrative: Vital Signs: Last Vital Signs Temp 98.2 F 07/12/24 13:55 Pulse 140 H 07/12/24 15:25 Resp 18 07/12/24 13:55 BP 121/74 07/12/24 14:10 Pulse Ox 99 07/12/24 13:55 O2 Del Method Room Air 07/12/24 13:55 BMI result Body Mass Index 27.6 Constitutional - Awake and Alert, No apparent distress Eyes - PERRLA, EOMI Cardiovascular - S1S2, irregularly irregular, tachycardic, No edema Respiratory - Normal lung expansion, Normal respiratory effort, No respiratory distress, CTA bilaterally Gastrointestinal - NT / ND; +BS; No rebound or guarding Extremities - tenderness to palpation right thigh with mild swelling and warmth compared to the left Skin - Warm/Dry Neurological - Alert & oriented x3 Psychological - Appropriate affect Results Labs 07/12/24 09:51 07/12/24 09:51 Labs: Laboratory Results - last 24 hr 07/12/24 09:51 MCV 72.8 L MCH 22.1 L MCHC 30.4 L RDW 19.5 H Plt Count 149 L D MPV Not Reportable Immature Gran % (Auto) 0.3 Neut % (Auto) 69.1 Lymph % (Auto) 15.3 L [place] % (Auto) 13.9 H Eos % (Auto) 1.3 Baso % (Auto) 0.1 Lymph # (Auto) 1.0 L [place] # (Auto) 0.9 Eos # (Auto) 0.1 Baso # (Auto) 0.0 Abs Immat Gran (auto) 0.02 Absolute Neuts (auto) 4.6 Absolute Nucleated RBC 0.000 Nucleated RBC % (auto) 0.0 ESR 17 H Anion Gap 12 Estim Creat Clear Calc 205.2 Estimated GFR > 60 Random Glucose 94 Calcium 9.1 Magnesium 1.9 Total Bilirubin 0.7 Direct Bilirubin 0.3 AST 37 ALT 36 Alkaline Phosphatase 140 H Total Creatine Kinase 94 C-Reactive Protein 6.06 H Total Protein 8.4 H Albumin 4.1 Imaging Radiologist's Impressions: Impressions Venous Duplex 07/12/24 09:53 IMPRESSION: 1. Deep venous thrombosis involving the right superficial femoral vein. 2. No evidence of deep venous thrombosis involving the left lower extremity. Electronically signed by: Khang Gill MD 07/12/2024 11:01 AM EDT RP Assessment and Plan (1) Paroxysmal A-fib: Status: Acute (2) DVT (deep venous thrombosis): Qualifiers: Affected thrombotic vein of extremity: femoral Chronicity: acute DVT location: lower extremity Laterality: right Qualified Code(s): I82.411 - Acute embolism and thrombosis of right femoral vein Status: Acute Plan 38-year-old male with history of systemic scleroderma on Ocrevus immunotherapy (follows with [facility], last dose 08/2023-has missed multiple infusion appts per Dr. Geiger), myositis, s/p penile implant, and paroxysmal atrial fibrillation s/p cardioversion x 2 and ablation 4 years ago no longer on ac admitted for afib with rvr #Paroxysmal atrial fibrillation with rvr -EKG shows AFib RVR, rate [address] elevations in the inferior leads, likely rate related. Repeat EKG now -given IV Lopressor x3, 10 mg IV diltiazem with rate better controlled in the 80s on admission. Continue metoprolol 25 mg t.i.d. -echocardiogram -cardiology consult -cardiac diet -chads Vasc score 1(likely vascular disease r/t scleroderma) -monitor on telemetry #Acute RLE DVT -venous duplex shows DVT of the superficial right femoral vein -check CTA chest to r/o pe -Eliquis 10 mg b.i.d. x7 days, then 5 mg b.i.d. -unlikely to be a candidate for intervention, consider vascular surgery consult -outpatient follow-up with Hematology # systemic scleroderma/myositis -follows with [facility] (Dr. Geiger) -last ocrevus infusion 08/2023 (has missed appts, was due last week but had URI) dvt prophylaxis eliquis full code Patient requires inpatient stay at least 2 midnights for management of paroxysmal atrial fibrillation with RVR requiring IV rate control expert consultation and echocardiogram with close cardiac monitoring Quality Stroke Does the patient have a stroke diagnosis?: No VTE Prior VTE?: No VTE Risk Level:: Medical - moderate - high VTE Device Contraindication: Treatment Not Indicated VTE Drug Contraindication: N/A - Med Ordered
--- NOTE | 2024-07-12 17:01 | PHA.MEDREC ---
Pharmacy Consult ? Medication Reconciliation Pharmacy has completed the medication reconciliation. Spoke to patient and confirmed medication list. Patient said he takes vitamin D on mondays and gabapentin tid prn pain. Last dose was yesterday 07/11/24.
[2024-07-12] MEDS: iohexoL 350 MG/ML 100 ML INFUS..BTL IV (17:07)
--- NOTE | 2024-07-12 17:23 | PC.NURSE ---
port that was previously accessed was not compatible w/ IV contrast. port on right side of chest re-accessed. +blood return. access patent/intact. no complications noted. CT being completed at this time. plan of care ongoing.
[2024-07-12 18:21] LABS: INTERNATIONAL NORM RATIO 1.3 (0.9-1.1); Prothrombin Time 14.9 SEC (10.9-12.4)
[2024-07-12 18:23] LABS: Partial Thromboplastin Time 33.9 SEC (26.0-36.8)
[2024-07-12 18:43] LABS: Troponin-I High Sensitivity < 2.7 ng/L (<3.5-35.0)
--- NOTE | 2024-07-12 19:04 | PC.NURSE ---
received report from Nirmala Wilkerson, assume care of pt at this time
[2024-07-12] MEDS: Apixaban 5 MG TABLET 10 MG PO (21:39)
[2024-07-12] MEDS: Zinc Sulfate 220 MG CAPSULE PO (21:53)
--- NOTE | 2024-07-12 23:42 | PC.NURSE ---
resting quietly on stretcher, resp with ease, no s/s of acute distress
[2024-07-13] VITALS (10 sets, daily range): BP systolic 108–113; BP diastolic 65–80; PULSE 82–90; RESP 13–18; TEMP 36–37.5; O2SAT 97–98; BMI 27.8
[2024-07-13] MEDS: Morphine Sulfate 4 MG/ML CARTRIDGE 2 MG IVPUSH ×4 (01:46→23:58)
[2024-07-13] MEDS: 0.9 % Sodium Chloride Flush 3 ML SYRINGE IVFLUSH ×3 (01:50→22:31)
--- NOTE | 2024-07-13 02:27 | PC.NURSE ---
pt changed into a hospital bed, states it feels much better to his leg and back
[2024-07-13 05:18] LABS: MANUAL DIFF FLAG NO
[2024-07-13 05:32] LABS: Basophils Percent Auto 0.3 % (0-2); Eosinophils Absolute Auto 0.1 X10*3/uL (0.0-0.4); Eosinophils Percent Auto 1.8 % (0-4); Hematocrit 35.4 % (42.0-52.0); Hemoglobin 10.6 g/dl (14.0-18.0); Imm Gran Abs Auto 0.03 X10*3/uL (0.00-0.03); Imm Gran Pct Auto 0.5 % (0.0-0.4); Lymphocytes Absolute Auto 1.3 X10*3/uL (1.2-4.9); Lymphocytes Percent Auto 21.9 % (20-40); Mean Corpuscular HGB Conc 29.9 g/dl (31.0-36.0); Mean Corpuscular Volume 73.4 fL (80.0-98.0); Mean Platelet Volume 10.6 fL (9.4-12.4); Monocytes Absolute Auto 0.9 X10*3/uL (0.1-1.2); Monocytes Percent Auto 14.8 % (2-11); Neutrophils Absolute Auto 3.7 x10*3/uL (2.0-8.3); Neutrophils Percent Auto 60.7 % (45-73); Platelet Count 144 X10*3/uL (160-400); Red Blood Count 4.82 X10*6/uL (4.60-5.80); Red Cell Distribution Width 19.2 % (11.0-16.0); White Blood Count 6.1 X10*3/uL (4.8-10.8)
[2024-07-13 05:34] LABS: Anion Gap 10 (12-20); Blood Urea Nitrogen 6 mg/dL (9-16); Calcium 8.8 mg/dL (8.4-10.2); Carbon Dioxide 22 mmol/L (22-29); Chloride 109 mmol/L (96-108); Creatinine Clr Calc Pharmacy 175.4; Estimated Glomerular Filt Rate > 60; Glucose Random 109 mg/dL (60-115); Potassium 3.4 mmol/L (3.3-5.1); Sodium 138 mmol/L (135-145)
[2024-07-13] MEDS: Omeprazole 40 MG CAPSULE.DR PO (06:29)
--- NOTE | 2024-07-13 06:36 | PC.NURSE ---
pt requesting a lidocaine patch for his right leg, tiger text dr oreilly to request one
--- NOTE | 2024-07-13 07:00 | CA_ITS ---
Transthoracic Echocardiogram Patient (Last, First, Middle): Ray Solo, Gender: Male Date of : 1985 Age: 38 Procedure Date: 07/13/2024 Procedure Type: Transthoracic Echocardiogram Location: ER Height: 180.34 cm Weight: 89.81 kg BSA: 2.10 m2 Heart Rate: 86 bpm BP: 113 / 59 mmHg Booth Operator: Referring MD: Amy RIDDLE Symptoms: afib rvr, pe Study Quality: Adequate ECG Rhythm: Sinus Conclusions: - The left ventricular systolic function is mildly decreased. The calculated ejection fraction is 52% by biplane method. - No obvious valvular pathology seen on this study. Findings Procedure Information Contrast agent, definity, is being given per protocol without apparent complications. Left Ventricle Normal left ventricular cavity size. There is mildly increased left ventricular wall thickness. The left ventricular systolic function is mildly decreased. The calculated ejection fraction is 52% by biplane method. There is no evidence of regional wall motion abnormalities. Diastolic function is normal for age. Right Ventricle Mildly increased right ventricular cavity size. There is normal right ventricular systolic function. Atria Both atria are normal in size. Aortic Valve There is a normal trileaflet aortic valve. There is no aortic valve stenosis. There is no aortic valve regurgitation. Mitral Valve The mitral valve appears normal. There is no mitral valve regurgitation. There is no mitral valve stenosis. Pulmonic Valve The pulmonic valve is likely normal. Tricuspid Valve Normal tricuspid valve structure. There is trace tricuspid valve regurgitation. There is no evidence of pulmonary hypertension. Great Vessels The asc aorta is normal in size. Venous The inferior vena cava is normal in size and collapses less than 50% with inspiration. Pericardium/Pleural There is a trivial pericardial effusion. Prior Study Comparison No prior study available for comparison. Recommendations, Care & Conclusions No obvious valvular pathology seen on this study. Measurements 2D Linear Measurements IVSd: 1.15 0.6-0.9/0.6-1.0 cm LVIDd: 5.03 3.9-5.3/4.2-5.9 cm LVIDd Index: 2.40 2.4-3.2/2.2-3.1 cm/m2 LVIDs: 3.24 2.0-3.6 cm LVPWd: 1.14 0.7-1.1 cm LA Diam: 3.60 2.7-3.8/3.0-4.0 cm LAIDs Index: 1.71 1.5-2.3 cm/m2 LV Mass: 275.56 67-162/88-224 g LV Mass Index: 131.22 43-95/49-115 g/m2 LVOT Diam: 2.50 3.0+(-)1.3 cm 2D Systolic Function EF 4C: 52.60 >55% EF 2C: 47.20 >55% EF BiP: 51.60 >55% Mitral Valve MV Pk E: 0.68 MV PK A: 0.47 MV Decel Time: 176.00 E/A: 1.50 E'Lateral: 13.40 E'Medial: 7.83 E/E' Med: 8.60 E/E' Lat: 5.00 PHT: 51.00 MVA PHT: 4.31 Decel [place]: 3.85 Aortic Valve AoV Pk Krishna: 1.10 AoV Mn Krishna: 0.73 AoV VTI: 0.19 AoV Pk Grad: 5.00 Aov Mn Grad: 2.00 PARAMJIT Cont.VTI: 4.08 LVOT LVOT Pk Krishna: 0.84 LVOT Mn Krishna: 0.57 LVOT VTI: 0.16 LVOT Pk Grad: 3.00 LVOT Mn Grad: 2.00 LVOT Diam: 2.50 LVOT Area: 4.91 Diastolic Function MV Pk E: 0.68 MV Pk A: 0.47 E/A: 1.50 E'Medial: 7.83 E/E' Med: 8.60 E' Laterial: 13.40 E/E' Lat: 5.00 Right Ventricle TAPSE (mm): 23.80 TVS' Krishna: 12.70 Tricuspid Valve TR Pk Krishna: 2.65 TR Pk Grad: 28.00 RA Press: 8.00 RVSP: 36.00 Great Vessels Aorta Sinus of Valsalva: 2.90 2.0-3.5 cm Ao Asc: 3.10 2.1-3.4 cm Pulmonary Valve PV Pk Krishna: 0.91 Peak PV Grad: 3.00 Updated in Other Vendor System with Status of Final Solo Herman MD electronically signed on 07/13/2024 3:52:16 PM with status of Final
[2024-07-13] MEDS: Lidocaine 4 % Patch ADH..PATCH 1 PATCH TRANSDERMA (07:35)
[2024-07-13] MEDS: Metoprolol Tartrate 25 MG TABLET PO ×3 (07:35→21:17)
[2024-07-13] MEDS: Apixaban 5 MG TABLET 10 MG PO ×2 (07:36→21:19)
--- NOTE | 2024-07-13 09:41 | P.PNIM_ITS ---
Subjective Subjective Date of Service: 07/13/24 Interval History: Right leg pain Physical Exam 2 Vital Signs: Vital Signs: Last Vital Signs Temp 98.6 F 07/13/24 07:34 Pulse 90 07/13/24 07:34 Resp 16 07/13/24 07:34 BP 108/77 07/13/24 07:34 Pulse Ox 97 07/13/24 07:34 O2 Del Method Room Air 07/13/24 07:34 BMI result Body Mass Index 27.6 General: AO X 3, no acute distress Resp: CTA bilateral, no accessory muscles used CVS: S1,S2, irregular GI: soft, non tender, non distended Neuro: motor grossly intact, alert Psych: appropriate affect, appropriate insight Right lower extremity swelling Objective Data Active Medications Acetaminophen (Acetaminophen 325 Mg Tablet) 650 mg PO Q6H PRN PRN Reason: Pain, Mild (Pain Scale 1-3), fever or headache Apixaban (Apixaban 5 Mg Tablet) 10 mg PO BID [facility] Stop: 07/19/24 09:01 Last Admin: 07/13/24 07:36 Dose: 10 mg Documented By: TAYLOR Calcium Carbonate (Calcium Carbonate 750 Mg Tab.Chew) 750 mg PO Q4H PRN PRN Reason: Heartburn Ergocalciferol (Ergocalciferol (Vitamin D2) 1,250 Mcg Capsule) 1,250 mcg PO MO IVETT Gabapentin (Gabapentin 300 Mg Capsule) 300 mg PO TID PRN PRN Reason: neuropathic pain Magnesium Hydroxide (Milk Of Magnesia 30 Ml Oral.Susp) 30 ml PO DAILY PRN PRN Reason: Constipation Melatonin (Melatonin 3 Mg Tablet) 6 mg PO BEDTIME PRN PRN Reason: Insomnia Metoprolol Tartrate (Metoprolol Tartrate 25 Mg Tablet) 25 mg PO TID [facility]; Protocol Last Admin: 07/13/24 07:35 Dose: 25 mg Documented By: TAYLOR Morphine Sulfate (Morphine Sulfate 4 Mg/Ml Cartridge) 2 mg IVPUSH Q4H PRN; Protocol PRN Reason: Pain, Severe (Pain Scale 7-10) Last Admin: 07/13/24 01:46 Dose: 2 mg Documented By: MADELINE Omeprazole (Omeprazole 40 Mg Capsule.) 40 mg PO DAILY@0630 [facility] Last Admin: 07/13/24 06:29 Dose: 40 mg Documented By: MADELINE Oxycodone HCl (Oxycodone Hcl Immed Release 5 Mg Tablet) 5 mg PO Q6H PRN PRN Reason: Pain, Moderate(Pain Scale 4-6) Sodium Chloride (0.9 % Sodium Chloride Flush 3 Ml Syringe) 3 ml IVFLUSH QSHIFT [facility] Last Admin: 07/13/24 07:40 Dose: Not Given Documented By: TAYLOR Non-Admin Reason: See Note Zinc Sulfate (Zinc Sulfate 220 Mg Capsule) 220 mg PO BEDTIME [facility] Last Admin: 07/12/24 21:53 Dose: 220 mg Documented By: MADELINE Labs 07/13/24 04:51 07/13/24 04:51 Labs: Laboratory Results - last 24 hr 07/12/24 07/12/24 07/13/24 09:51 17:43 04:51 MCV 72.8 L 73.4 L MCH 22.1 L 22.0 L MCHC 30.4 L 29.9 L RDW 19.5 H 19.2 H Plt Count 149 L D 144 L MPV Not Reportable 10.6 Immature Gran % (Auto) 0.3 0.5 H Neut % (Auto) 69.1 60.7 Lymph % (Auto) 15.3 L 21.9 [place] % (Auto) 13.9 H 14.8 H Eos % (Auto) 1.3 1.8 Baso % (Auto) 0.1 0.3 Lymph # (Auto) 1.0 L 1.3 [place] # (Auto) 0.9 0.9 Eos # (Auto) 0.1 0.1 Baso # (Auto) 0.0 0.0 Abs Immat Gran (auto) 0.02 0.03 Absolute Neuts (auto) 4.6 3.7 Absolute Nucleated RBC 0.000 0.000 Nucleated RBC % (auto) 0.0 0.0 ESR 17 H PT 14.9 H INR 1.3 H APTT 33.9 Anion Gap 12 10 L Estim Creat Clear Calc 205.2 175.4 Estimated GFR > 60 > 60 Random Glucose 94 109 Calcium 9.1 8.8 Magnesium 1.9 Total Bilirubin 0.7 Direct Bilirubin 0.3 AST 37 ALT 36 Alkaline Phosphatase 140 H Total Creatine Kinase 94 Troponin I High Sens < 2.7 C-Reactive Protein 6.06 H Total Protein 8.4 H Albumin 4.1 Assessment and Plan (1) Paroxysmal A-fib: Status: Acute Plan 38M PMH systemic scleroderma, myositis, status post penile implant, paroxysmal atrial fibrillation presented with right lower extremity pain and swelling and AFib with RVR Paroxysmal atrial fibrillation with rapid ventricular response Continue Lopressor, follow-up echo, follow up Cardiology Acute right lower extremity DVT and left lower lobe segmental PE Started on Eliquis 10 mg b.i.d., changed to 5 mg b.i.d. on July 19 Systemic scleroderma/myositis Outpatient follow[facility]up at [facility] Full code reason for continued hospitalization: Ongoing RVR Quality Stroke Does the patient have a stroke diagnosis?: No VTE Prior VTE?: No VTE Risk Level:: Medical - moderate - high VTE Device Contraindication: Treatment Not Indicated VTE Drug Contraindication: N/A - Med Ordered
--- NOTE | 2024-07-13 09:52 | PM.CNCAR ---
History of Present Illness History of Present Illness Date of Service: 07/13/24 Chief complaint: Blood clot? Sent by Dr Munson: This is a cardiology consultation regarding atrial flutter. Fairly complex history. Has a history of systemic scleroderma on immunotherapy at [facility]. Has myositis. History of paroxysmal atrial fibrillation and previously had cardioversions and has also had an ablation in the past. It seems that lot of his care is at [place] as he states that it is very confusing to go to different hospitals as there is no care coordination. Any case, he has not been on recent anticoagulation. He still feels some palpitations but more so at nighttime. He came mainly for lower extremity discomfort and in that setting, he has been found have atrial flutter with rapid rate. He received IV medications including beta-blockers and diltiazem in the emergency room and after that, it seems he is back to normal sinus rhythm. Currently, no cardiac symptoms. Review of Systems Review of Systems: Yes all other systems are reviewed and are negative Constitutional: Constitutional: Reports as per HPI and Reports no additional constitutional complaints Eyes: Eyes: Reports as per HPI and Denies no additional eye complaints ENT: Denies system reviewed and no additional complaints, except as documented and Reports as per HPI Cardiovascular: Cardiovascular: Reports as per HPI, Reports no additional cardiovascular complaints, Denies acrocyanosis, Denies cool extremities, Denies chest pain, Denies leg edema, Denies lightheadedness, Reports palpitations and Denies dyspnea Respiratory: Respiratory: Reports as per HPI, Denies no additional respiratory complaints and Denies dyspnea Gastrointestinal: Gastrointestinal: Reports as per HPI and Denies no additional gastrointestinal complaints Genitourinary: Genitourinary: Reports no additional male genitourinary complaints and Reports as per HPI Musculoskeletal: Musculoskeletal: Reports no additional musculoskeletal complaints and Reports as per HPI Integumentary/Breasts: Skin/Breast: Reports system reviewed and no additional complaints, except as docu Neurologic: Reports system reviewed and no additional complaints, except as documented and Reports as per HPI Psychiatric: Psychiatric: Reports no additional psychiatric complaints and Reports as per HPI Endocrine: Endocrine: Reports no additional endocrine complaints, Reports as per HPI and Reports palpitations Hematologic/Lymphatic: Hematologic/Lymphatic: Reports no additional hematologic/lymphatic complaints and Reports as per HPI Allergic/Immunologic: Allergic/Immunologic: Reports no additional allergic/immunologic complaints and Reports as per HPI [facility] Past Medical History Medical History Upper respiratory infection Vitamin D deficiency Pulmonary hypertension Systemic sclerosis Atrial fibrillation Scleroderma Family History Family History Mother No problems noted. Father No problems noted. Surgical History Surgical History History of penile implant Hx of foot surgery (~06/2023) History of radiofrequency ablation (RFA) procedure for cardiac arrhythmia (~06/2019) History of insertion of tunneled central venous catheter (CVC) with port Social History Social History Housing: Apartment Alcohol intake: current Alcohol intake frequency: holidays/special occasions only Alcohol type: wine Patient Tobacco Use Status: Never used Tobacco Smoked in Last 30 Days: No e-Cigarette/Vaping Use: Never Used Second Hand Smoke Exposure: No Use of substances other than those prescribed or required for medical reasons: No Advance Directives: Yes Advance Directives Information Provided: Yes Advance Directives on File: No Nutrition Risks: No Nutritional Risk service: No Current occupational status: disabled Cognitive needs: Yes (Cane) Hearing needs: No Vision needs: Yes (Glasses) Meds Allergies Allergy/AdvReac Type Severity Reaction Status Date / Time shellfish Allergy Unknown anaphylaxis Uncoded 07/12/24 09:13 Active Medications: Current Medications Acetaminophen (Acetaminophen 325 Mg Tablet) 650 mg PO Q6H PRN PRN Reason: Pain, Mild (Pain Scale 1-3), fever or headache Apixaban (Apixaban 5 Mg Tablet) 10 mg PO BID IVETT Stop: 07/19/24 09:01 Last Admin: 07/13/24 07:36 Dose: 10 mg Calcium Carbonate (Calcium Carbonate 750 Mg Tab.Chew) 750 mg PO Q4H PRN PRN Reason: Heartburn Ergocalciferol (Ergocalciferol (Vitamin D2) 1,250 Mcg Capsule) 1,250 mcg PO MO IVETT Gabapentin (Gabapentin 300 Mg Capsule) 300 mg PO TID PRN PRN Reason: neuropathic pain Magnesium Hydroxide (Milk Of Magnesia 30 Ml Oral.Susp) 30 ml PO DAILY PRN PRN Reason: Constipation Melatonin (Melatonin 3 Mg Tablet) 6 mg PO BEDTIME PRN PRN Reason: Insomnia Metoprolol Tartrate (Metoprolol Tartrate 25 Mg Tablet) 25 mg PO TID [facility]; Protocol Last Admin: 07/13/24 07:35 Dose: 25 mg Morphine Sulfate (Morphine Sulfate 4 Mg/Ml Cartridge) 2 mg IVPUSH Q4H PRN; Protocol PRN Reason: Pain, Severe (Pain Scale 7-10) Last Admin: 07/13/24 01:46 Dose: 2 mg Omeprazole (Omeprazole 40 Mg Capsule.Dr) 40 mg PO DAILY@0630 [facility] Last Admin: 07/13/24 06:29 Dose: 40 mg Oxycodone HCl (Oxycodone Hcl Immed Release 5 Mg Tablet) 5 mg PO Q6H PRN PRN Reason: Pain, Moderate(Pain Scale 4-6) Sodium Chloride (0.9 % Sodium Chloride Flush 3 Ml Syringe) 3 ml IVFLUSH QSHIFT [facility] Last Admin: 07/13/24 07:40 Dose: Not Given Zinc Sulfate (Zinc Sulfate 220 Mg Capsule) 220 mg PO BEDTIME [facility] Last Admin: 07/12/24 21:53 Dose: 220 mg Home Medications ?Medication ?Instructions ?Recorded ?Confirmed ?Last Taken ?Type gabapentin 300 mg capsule 300 mg PO TID PRN Pain 08/28/20 07/12/24 Unknown History vitamin A 3,000 mcg (10,000 unit) 1 cap PO DAILY 09/03/21 07/12/24 07/11/24 History capsule ergocalciferol (vitamin D2) 1,250 1,250 mcg PO MO 08/18/23 07/12/24 07/11/24 History mcg (50,000 unit) capsule zinc sulfate 50 mg zinc (220 mg) 100 mg PO BEDTIME 08/18/23 07/12/24 07/11/24 History capsule Physical Exam Vital Signs: Vital Signs: Last Vital Signs Temp 98.6 F 07/13/24 07:34 Pulse 90 07/13/24 07:34 Resp 16 07/13/24 07:34 BP 108/77 07/13/24 07:34 Pulse Ox 97 07/13/24 07:34 O2 Del Method Room Air 07/13/24 07:34 BMI result Body Mass Index 27.6 Const: General: comfortable and no acute distress Orientation/consciousness: patient oriented x3 HEENT: Other: Unremarkable Head: Yes normal to inspection Neck: Neck: Yes normal visual inspection Chest: Chest palpation & inspection: normal inspection of the chest Resp: Auscultation: clear to auscultation bilaterally Cardio: Palpation: normal PMI Heart sounds: S1 normal heart sound present, S2 normal heart sound present, no gallops, no murmurs and no rubs GI: Palpation (GI): Soft to palpation Back/Spine/Pelvis: Other: unremarkable Skin: General skin exam: no rashes or lesions noted Neuro: General: patient oriented x3 Extrem: General: Yes normal to inspection Psych: Mental Status: mental status grossly normal Objective Labs and Meds 07/13/24 04:51 07/13/24 04:51 Lab results: Laboratory Results - last 24 hr 07/12/24 07/12/24 07/13/24 09:51 17:43 04:51 WBC 6.7 6.1 RBC 5.33 4.82 Hgb 11.8 L 10.6 L Hct 38.8 L 35.4 L MCV 72.8 L 73.4 L MCH 22.1 L 22.0 L MCHC 30.4 L 29.9 L RDW 19.5 H 19.2 H Plt Count 149 L D 144 L MPV Not Reportable 10.6 Immature Gran % (Auto) 0.3 0.5 H Neut % (Auto) 69.1 60.7 Lymph % (Auto) 15.3 L 21.9 [place] % (Auto) 13.9 H 14.8 H Eos % (Auto) 1.3 1.8 Baso % (Auto) 0.1 0.3 Lymph # (Auto) 1.0 L 1.3 [place] # (Auto) 0.9 0.9 Eos # (Auto) 0.1 0.1 Baso # (Auto) 0.0 0.0 Abs Immat Gran (auto) 0.02 0.03 Absolute Neuts (auto) 4.6 3.7 Absolute Nucleated RBC 0.000 0.000 Nucleated RBC % (auto) 0.0 0.0 ESR 17 H PT 14.9 H INR 1.3 H APTT 33.9 Sodium 140 138 Potassium 4.2 3.4 Chloride 108 109 H Carbon Dioxide 24 22 Anion Gap 12 10 L BUN 5 L 6 L Creatinine 0.53 0.62 Estim Creat Clear Calc 205.2 175.4 Estimated GFR > 60 > 60 Random Glucose 94 109 Calcium 9.1 8.8 Magnesium 1.9 Total Bilirubin 0.7 Direct Bilirubin 0.3 AST 37 ALT 36 Alkaline Phosphatase 140 H Total Creatine Kinase 94 Troponin I High Sens < 2.7 C-Reactive Protein 6.06 H Total Protein 8.4 H Albumin 4.1 ECG Interpretation: Echocardiogram with atrial flutter at a rate of 138/Min. Minimal criteria for LVH and nonspecific ST-T changes. On telemetry, seems to be normal rhythm at this time. Imaging Radiologist's impression: Impressions Venous Duplex 07/12/24 09:53 IMPRESSION: 1. Deep venous thrombosis involving the right superficial femoral vein. 2. No evidence of deep venous thrombosis involving the left lower extremity. Electronically signed by: Khang Gill MD 07/12/2024 11:01 AM EDT RP Chest CTA 07/12/24 16:54 IMPRESSION: There is acute segmental left lower lobe pulmonary embolus. The study is limited. VTE: Positive This critical result was discussed with VENKATESH Adhikari at 1809 on 07/12/24 and it was ascertained that the content and urgency of the report was understood at the time of direct communication. Electronically signed by: Damion Almodovar MD 07/12/2024 06:09 PM EDT RP Assessment and Plan (1) Atrial flutter with rapid ventricular response: Status: Acute (2) DVT (deep venous thrombosis): Qualifiers: Affected thrombotic vein of extremity: femoral Chronicity: acute DVT location: lower extremity Laterality: right Qualified Code(s): I82.411 - Acute embolism and thrombosis of right femoral vein Status: Acute (3) Pulmonary embolism: Status: Acute Plan EKG with atrial flutter with rapid rate on arrival but now in sinus rhythm. Ultrasound leg shows DVT of right superficial femoral vein. CT scan of chest positive for acute segmental left lower lobe pulmonary embolus. Unremarkable troponin. As he is already back to normal sinus rhythm, we can use a small dose of beta-vincent as guided by his blood pressure. Already on anticoagulation for thromboembolic disease. Otherwise, he would like to keep his care consolidate at [place] as he finds it difficult to go to different hospitals and coordinate things. Advised him to contact his supervisor clam bed in [place] for further advice. We will review the echocardiogram once completed. Procedures Date of Service Date of Service: 07/13/24
--- NOTE | 2024-07-13 09:58 | PC.NURSE ---
Addendum entered by Keturah Bassett RN 07/13/24 11:46: patient has bilat pedal pulses, equal strength, READING SPECIALIST intact Original Note: patient resting quietly in ER room 3, respirations equal and unlabored, skin dry and intact. patient s alert and oriented x4. port dressing dry and intact, port flushes easily, has curos cap on the end. patient VSS, ate breakfast this morning, sitting up. patient uses urinal at bedside. patient medicated per DEC
--- NOTE | 2024-07-13 13:01 | MHC.CM.PN ---
PT REPORTS HE LIVES ALONE AND HAS DAILY [employer] SERVICES HE HAS A WHEEL CHAIR AND HOME MODIFICATIONS, HE SAYS HE CAN SELF TRANSFER PT SAYS HE HAS COMPLETED A HCP ON THE PAST NAMING HIS MOTHER HIS AGENT, COPY REQUESTED PCP: JOSE WALLER IMM DELIVERED DCP: HOME, RESUME [employer] VIA SELF TRANSPORT
--- NOTE | 2024-07-13 17:01 | MHC.EDTECH ---
This pct assumed care of Patient at 1500 ,vitals taken Patient had 2 apple juice ,cheese sticks and saltines crackers for snack .
[2024-07-13] MEDS: oxyCODONE HCl Immed Release 5 MG TABLET PO (17:48)
[2024-07-13] MEDS: Zinc Sulfate 220 MG CAPSULE PO (22:31)
[2024-07-14] VITALS (7 sets, daily range): BP systolic 97–119; BP diastolic 58–82; PULSE 71–84; RESP 17–19; TEMP 36.1–36.7; O2SAT 95–97
[2024-07-14] MEDS: Omeprazole 40 MG CAPSULE.DR PO (05:25)
[2024-07-14] MEDS: Morphine Sulfate 4 MG/ML CARTRIDGE 2 MG IVPUSH ×4 (05:25→21:49)
[2024-07-14 06:51] LABS: Anion Gap 11 (12-20); Blood Urea Nitrogen 6 mg/dL (9-16); Calcium 9.1 mg/dL (8.4-10.2); Carbon Dioxide 23 mmol/L (22-29); Chloride 108 mmol/L (96-108); Creatinine Clr Calc Pharmacy 230.4; Estimated Glomerular Filt Rate > 60; Glucose Fasting 93 mg/dL (60-99); Potassium 3.4 mmol/L (3.3-5.1); Sodium 139 mmol/L (135-145)
[2024-07-14 07:20] LABS: Hematocrit 35.5 % (42.0-52.0); Hemoglobin 10.8 g/dl (14.0-18.0); Mean Corpuscular HGB Conc 30.4 g/dl (31.0-36.0); Mean Corpuscular Hemoglobin 22.1 pg (27.0-33.0); Mean Corpuscular Volume 72.7 fL (80.0-98.0); Mean Platelet Volume 10.5 fL (9.4-12.4); Platelet Count 142 X10*3/uL (160-400); Red Blood Count 4.88 X10*6/uL (4.60-5.80); Red Cell Distribution Width 19.4 % (11.0-16.0); White Blood Count 5.6 X10*3/uL (4.8-10.8)
[2024-07-14] MEDS: Metoprolol Tartrate 25 MG TABLET PO ×3 (08:32→20:40)
[2024-07-14] MEDS: Apixaban 5 MG TABLET 10 MG PO (08:32)
[2024-07-14] MEDS: 0.9 % Sodium Chloride Flush 3 ML SYRINGE IVFLUSH ×3 (08:34→20:40)
--- NOTE | 2024-07-14 09:37 | HO.PM.IMPN ---
Subjective Subjective Date of Service: 07/14/24 Interval History: Right leg pain worsening Physical Exam Vital Signs: Vital Signs: Last Vital Signs Temp 96.9 F 07/14/24 07:18 Pulse 82 07/14/24 07:18 Resp 18 07/14/24 07:18 BP 110/75 07/14/24 07:18 Pulse Ox 96 07/14/24 07:18 O2 Del Method Room Air 07/14/24 07:18 BMI result Body Mass Index 27.8 Const: General: comfortable and no acute distress Orientation/consciousness: patient oriented x3 HEENT: Other: Unremarkable Head: Yes normal to inspection Neck: Neck: Yes normal visual inspection Chest: Chest palpation & inspection: normal inspection of the chest Resp: Auscultation: clear to auscultation bilaterally Cardio: Palpation: normal PMI Heart sounds: S1 normal heart sound present, S2 normal heart sound present, no gallops, no murmurs and no rubs GI: Palpation (GI): Soft to palpation Back/Spine/Pelvis: Other: unremarkable Skin: General skin exam: no rashes or lesions noted Neuro: General: patient oriented x3 Extrem: General: Yes normal to inspection Psych: Mental Status: mental status grossly normal Objective Data Active Medications Acetaminophen (Acetaminophen 325 Mg Tablet) 650 mg PO Q6H PRN PRN Reason: Pain, Mild (Pain Scale 1-3), fever or headache Apixaban (Apixaban 5 Mg Tablet) 10 mg PO BID [facility] Stop: 07/19/24 09:01 Last Admin: 07/14/24 08:32 Dose: 10 mg Documented By: DAVID Calcium Carbonate (Calcium Carbonate 750 Mg Tab.Chew) 750 mg PO Q4H PRN PRN Reason: Heartburn Ergocalciferol (Ergocalciferol (Vitamin D2) 1,250 Mcg Capsule) 1,250 mcg PO MO [facility] Gabapentin (Gabapentin 300 Mg Capsule) 300 mg PO TID PRN PRN Reason: neuropathic pain Magnesium Hydroxide (Milk Of Magnesia 30 Ml Oral.Susp) 30 ml PO DAILY PRN PRN Reason: Constipation Melatonin (Melatonin 3 Mg Tablet) 6 mg PO BEDTIME PRN PRN Reason: Insomnia Metoprolol Tartrate (Metoprolol Tartrate 25 Mg Tablet) 25 mg PO TID [facility]; Protocol Last Admin: 07/14/24 08:32 Dose: 25 mg Documented By: DAVID Morphine Sulfate (Morphine Sulfate 4 Mg/Ml Cartridge) 2 mg IVPUSH Q4H PRN; Protocol PRN Reason: Pain, Severe (Pain Scale 7-10) Last Admin: 07/14/24 05:25 Dose: 2 mg Documented By: TEOFILO Comments: administered during down time Omeprazole (Omeprazole 40 Mg Capsule.) 40 mg PO DAILY@0630 [facility] Last Admin: 07/14/24 05:25 Dose: 40 mg Documented By: TEOFILO Comments: administered during down time Oxycodone HCl (Oxycodone Hcl Immed Release 5 Mg Tablet) 5 mg PO Q6H PRN PRN Reason: Pain, Moderate(Pain Scale 4-6) Last Admin: 07/13/24 17:48 Dose: 5 mg Documented By: TAYLOR Sodium Chloride (0.9 % Sodium Chloride Flush 3 Ml Syringe) 3 ml IVFLUSH QSHIFT [facility] Last Admin: 07/14/24 08:34 Dose: 3 ml Documented By: DAVID Zinc Sulfate (Zinc Sulfate 220 Mg Capsule) 220 mg PO BEDTIME [facility] Last Admin: 07/13/24 22:31 Dose: 220 mg Documented By: TEOFILO Labs 07/14/24 06:00 07/14/24 06:00 Labs: Laboratory Results - last 24 hr 07/14/24 06:00 MCV 72.7 L MCH 22.1 L MCHC 30.4 L RDW 19.4 H Plt Count 142 L MPV 10.5 Absolute Nucleated RBC 0.000 Nucleated RBC % (auto) 0.0 Anion Gap 11 L Estim Creat Clear Calc 230.4 Estimated GFR > 60 Fasting Glucose 93 Calcium 9.1 Assessment and Plan (1) Paroxysmal A-fib: Status: Acute Plan 38M PMH systemic scleroderma, myositis, status post penile implant, paroxysmal atrial fibrillation presented with right lower extremity pain and swelling and AFib with RVR Paroxysmal atrial fibrillation with rapid ventricular response Continue Lopressor, eliquis, now in NSR Acute right lower extremity DVT and left lower lobe segmental PE Started on Eliquis 10 mg b.i.d., change to 5 mg b.i.d. on July 19 given worsening symptoms check repeat us Systemic scleroderma/myositis Outpatient [facility] at [facility] Full code reason for continued hospitalization: worsening RLE pain Quality Stroke Does the patient have a stroke diagnosis?: No VTE Prior VTE?: No VTE Risk Level:: Medical - moderate - high VTE Device Contraindication: Treatment Not Indicated VTE Drug Contraindication: N/A - Med Ordered
--- NOTE | 2024-07-14 09:42 | PM.PNCARD ---
Subjective Subjective Date of Service: 07/14/24 Interval history: He states that he feels okay. No new cardiac symptoms Review of Systems Review of Systems Yes all other systems are reviewed and are negative Constitutional: Reports as per HPI and Reports no additional constitutional complaints Eyes: Reports as per HPI and Denies no additional eye complaints Denies system reviewed and no additional complaints, except as documented and Reports as per HPI Cardiovascular: Reports as per HPI, Reports no additional cardiovascular complaints, Denies acrocyanosis, Denies cool extremities, Denies chest pain, Denies leg edema, Denies lightheadedness, Denies palpitations and Denies dyspnea Respiratory: Reports as per HPI, Denies no additional respiratory complaints and Denies dyspnea Gastrointestinal: Reports as per HPI and Denies no additional gastrointestinal complaints Genitourinary: Reports no additional male genitourinary complaints and Reports as per HPI Musculoskeletal: Reports no additional musculoskeletal complaints and Reports as per HPI Skin/Breast: Reports system reviewed and no additional complaints, except as docu Reports system reviewed and no additional complaints, except as documented and Reports as per HPI Psychiatric: Reports no additional psychiatric complaints and Reports as per HPI Endocrine: Reports no additional endocrine complaints, Reports as per HPI and Denies palpitations Hematologic/Lymphatic: Reports no additional hematologic/lymphatic complaints and Reports as per HPI Allergic/Immunologic: Reports no additional allergic/immunologic complaints and Reports as per HPI Physical Exam Vital Signs: Last Vital Signs Temp 96.9 F 07/14/24 07:18 Pulse 82 07/14/24 07:18 Resp 18 07/14/24 07:18 BP 110/75 07/14/24 07:18 Pulse Ox 96 07/14/24 07:18 O2 Del Method Room Air 07/14/24 07:18 BMI result Body Mass Index 27.8 Const General: comfortable and no acute distress Orientation/consciousness: patient oriented x3 HEENT Other: Unremarkable Head: Yes normal to inspection Neck Neck: Yes normal visual inspection Chest Chest palpation & inspection: normal inspection of the chest Resp Auscultation: clear to auscultation bilaterally Cardio Palpation: normal PMI Heart sounds: S1 normal heart sound present, S2 normal heart sound present, no gallops, no murmurs and no rubs GI Palpation (GI): Soft to palpation Back/Spine/Pelvis Other: unremarkable Skin General skin exam: no rashes or lesions noted Neuro General: patient oriented x3 Extrem General: Yes normal to inspection Psych Mental Status: mental status grossly normal Objective Labs and Meds 07/14/24 06:00 07/14/24 06:00 Lab results: Laboratory Results - last 24 hr 07/14/24 06:00 WBC 5.6 RBC 4.88 Hgb 10.8 L Hct 35.5 L MCV 72.7 L MCH 22.1 L MCHC 30.4 L RDW 19.4 H Plt Count 142 L MPV 10.5 Absolute Nucleated RBC 0.000 Nucleated RBC % (auto) 0.0 Sodium 139 Potassium 3.4 Chloride 108 Carbon Dioxide 23 Anion Gap 11 L BUN 6 L Creatinine 0.51 Estim Creat Clear Calc 230.4 Estimated GFR > 60 Fasting Glucose 93 Calcium 9.1 Progress Note: A&P Assessment and plan (1) Atrial flutter with rapid ventricular response: Status: Acute (2) DVT (deep venous thrombosis): Status: Acute (3) Pulmonary embolism: Status: Acute Plan EKG with atrial flutter with rapid rate on arrival but now in sinus rhythm. On telemetry, very brief atrial runs but otherwise mostly in sinus rhythm. Echocardiogram with LVEF of 52%. No significant valvular findings and otherwise unremarkable. Ultrasound leg shows DVT of right superficial femoral vein. CT scan of chest positive for acute segmental left lower lobe pulmonary embolus. Unremarkable troponin. Can keep him on beta-blockers as that seems to be helping. Otherwise, on anticoagulation for both atrial flutter as well as DVT/PE. Patient states that he would like to consolidate his care in [place] and hence, recommend that he contact his own EP physician who did this ablations. He agrees to do so. Total time spent including review of data, counseling, documentation, coordination of care-42 minutes. Time Spent With Patient Time: Total time managing care of this patient today ____ minutes. Progress Note: Quality Stroke Does the patient have a stroke diagnosis?: No Procedures Date of Service Date of Service: 07/14/24
--- NOTE | 2024-07-14 16:33 | P.CONGS_ITS ---
History of Present Illness Consult details Consult date: 07/14/24 Reason for consult: other (DVT) Narrative: Complex 38-year-old gentleman with a history of systemic scleroderma on octreotide venous immunotherapy most recently developed right thigh pain and swelling. Reports that it has been going on for 2-3 weeks. It has gotten to the point where it is significantly swollen and painful for him. He was initially given anticoagulation and was scheduled for discharge any complaint of additional pain and discomfort. Now presents for vascular evaluation Review of Systems 2 Constitutional: Constitutional: Reports as per HPI ENT: Reports system reviewed and no additional complaints, except as documented Cardiovascular: Cardiovascular: Denies chest pain, Denies chest pain at rest and Denies chest pain with activity Respiratory: Respiratory: Denies chest congestion and Denies cough Gastrointestinal: Gastrointestinal: Reports no additional gastrointestinal complaints Musculoskeletal: Musculoskeletal: Denies abnormal gait Integumentary/Breasts: Skin/Breast: Reports pruritus and Denies wounds Neurologic: Reports system reviewed and no additional complaints, except as documented and Denies abnormal gait Psychiatric: Psychiatric: Denies no additional psychiatric complaints [facility] Past Medical History Medical History Upper respiratory infection Vitamin D deficiency Pulmonary hypertension Systemic sclerosis Atrial fibrillation Scleroderma Family History Family History Mother No problems noted. Father No problems noted. Surgical History Surgical History History of penile implant Hx of foot surgery (~06/2023) History of radiofrequency ablation (RFA) procedure for cardiac arrhythmia (~06/2019) History of insertion of tunneled central venous catheter (CVC) with port Social History Social History Household Members: None Housing: House Do you presently have visiting nurse or other home services: Yes ([facility]) Alcohol intake: current Alcohol intake frequency: holidays/special occasions only Alcohol type: wine Patient Tobacco Use Status: Never used Tobacco e-Cigarette/Vaping Use: Never Used Second Hand Smoke Exposure: No Advance Directives Date on File: 07/13/24 service: No Current occupational status: disabled Cognitive needs: Yes (Cane) Hearing needs: No Vision needs: Yes (Glasses) Meds Allergies Allergy/AdvReac Type Severity Reaction Status Date / Time shellfish Allergy Unknown anaphylaxis Uncoded 07/12/24 09:13 Active Medications: Current Medications Acetaminophen (Acetaminophen 325 Mg Tablet) 650 mg PO Q6H PRN PRN Reason: Pain, Mild (Pain Scale 1-3), fever or headache Apixaban (Apixaban 5 Mg Tablet) 10 mg PO BID [facility] Last Admin: 07/14/24 08:32 Dose: 10 mg Calcium Carbonate (Calcium Carbonate 750 Mg Tab.Chew) 750 mg PO Q4H PRN PRN Reason: Heartburn Ergocalciferol (Ergocalciferol (Vitamin D2) 1,250 Mcg Capsule) 1,250 mcg PO MO [facility] Gabapentin (Gabapentin 300 Mg Capsule) 300 mg PO TID PRN PRN Reason: neuropathic pain Heparin Sodium (Porcine) (Heparin Sodium,Porcine 5,000 Unit/Ml Vial) 3,600 unit 40 unit/kg (3600 unit) IVPUSH PROTOCOL BOLUS PRN; Protocol PRN Reason: 40 unit/kg - Heparin Protocol Heparin Sodium (Porcine) (Heparin Sodium,Porcine 5,000 Unit/Ml Vial) 7,200 unit 80 unit/kg (7200 unit) IVPUSH PROTOCOL BOLUS PRN; Protocol PRN Reason: 80 unit/kg - Heparin Protocol Heparin Sodium/Sodium Chloride (Heparin Sodium,Porcine/1/2ns) 25,000 unit in 250 mls @ 0 mls/hr IVCONT .Q0M [facility]; Protocol Sodium Chloride (Ns) 1,000 mls @ 100 mls/hr IVCONT .Q10H [facility] Magnesium Hydroxide (Milk Of Magnesia 30 Ml Oral.Susp) 30 ml PO DAILY PRN PRN Reason: Constipation Melatonin (Melatonin 3 Mg Tablet) 6 mg PO BEDTIME PRN PRN Reason: Insomnia Metoprolol Tartrate (Metoprolol Tartrate 25 Mg Tablet) 25 mg PO TID [facility]; Protocol Last Admin: 07/14/24 16:24 Dose: 25 mg Morphine Sulfate (Morphine Sulfate 4 Mg/Ml Cartridge) 2 mg IVPUSH Q4H PRN; Protocol PRN Reason: Pain, Severe (Pain Scale 7-10) Last Admin: 07/14/24 14:08 Dose: 2 mg Omeprazole (Omeprazole 40 Mg Capsule.Dr) 40 mg PO DAILY@0630 [facility] Last Admin: 07/14/24 05:25 Dose: 40 mg Oxycodone HCl (Oxycodone Hcl Immed Release 5 Mg Tablet) 5 mg PO Q6H PRN PRN Reason: Pain, Moderate(Pain Scale 4-6) Last Admin: 07/13/24 17:48 Dose: 5 mg Sodium Chloride (0.9 % Sodium Chloride Flush 3 Ml Syringe) 3 ml IVFLUSH QSHIFT [facility] Last Admin: 07/14/24 16:24 Dose: 3 ml Zinc Sulfate (Zinc Sulfate 220 Mg Capsule) 220 mg PO BEDTIME [facility] Last Admin: 07/13/24 22:31 Dose: 220 mg Home Medications ?Medication ?Instructions ?Recorded ?Confirmed ?Last Taken ?Type gabapentin 300 mg capsule 300 mg PO TID PRN Pain 08/28/20 07/12/24 Unknown History vitamin A 3,000 mcg (10,000 unit) 1 cap PO DAILY 09/03/21 07/12/24 07/11/24 History capsule ergocalciferol (vitamin D2) 1,250 1,250 mcg PO MO 08/18/23 07/12/24 07/11/24 History mcg (50,000 unit) capsule zinc sulfate 50 mg zinc (220 mg) 100 mg PO BEDTIME 08/18/23 07/12/24 07/11/24 History capsule Physical Exam 2 Vital Signs: Vital Signs: Last Vital Signs Temp 98.0 F 07/14/24 16:00 Pulse 83 07/14/24 16:00 Resp 19 07/14/24 16:00 BP 119/82 07/14/24 16:00 Pulse Ox 97 07/14/24 16:00 O2 Del Method Room Air 07/14/24 16:00 BMI result Body Mass Index 27.8 Const: General: cooperative, healthy appearing and comfortable O rientation/consciousness: oriented to person, oriented to place and oriented to time Neck: Carotids: no bruits Chest: Chest palpation & inspection: normal inspection of the chest and normal palpation of entire chest wall Resp: Effort & Inspection: normal respiratory effort and able to speak in complete sentences Cardio: Rate: regular rate Heart sounds: S1 normal heart sound present and S2 normal heart sound present Peripheral pulses: Peripheral pulses 2+ throughout GI: Inspection: Yes normal to inspection Skin: Other: +2 edema, General skin exam: dry skin Neuro: General: oriented to person, oriented to place and oriented to time Extrem: Other: Right lower extremity +2 edema Right lower extremity: full ROM, normal capillary refill and edema Left lower extremity: full ROM, normal capillary refill and edema Psych: Mental Status: mental status grossly normal Results Labs 07/14/24 06:00 07/14/24 06:00 Labs: Abnormal lab results 07/14/24 Range/Units 06:00 Hgb 10.8 L (14.0-18.0) g/dl Hct 35.5 L (42.0-52.0) % MCV 72.7 L (80.0-98.0) fL MCH 22.1 L (27.0-33.0) pg MCHC 30.4 L (31.0-36.0) g/dl RDW 19.4 H (11.0-16.0) % Plt Count 142 L (160-400) X10*3/uL Anion Gap 11 L (12-20) BUN 6 L (9-16) mg/dL Short CBC 07/14/24 Range/Units 06:00 WBC 5.6 (4.8-10.8) X10*3/uL Hgb 10.8 L (14.0-18.0) g/dl Hct 35.5 L (42.0-52.0) % Plt Count 142 L (160-400) X10*3/uL BMP 07/14/24 06:00 Sodium 139 Potassium 3.4 Chloride 108 Carbon Dioxide 23 BUN 6 L Creatinine 0.51 Calcium 9.1 All other labs normal. Imaging Additional studies: Results reviewed and persistent occlusive thrombus in right superficial femoral artery. Written report and images reviewed with the ultrasound team. Assessment and Plan (1) DVT (deep venous thrombosis): Qualifiers: Affected thrombotic vein of extremity: femoral Chronicity: acute DVT location: lower extremity Laterality: right Qualified Code(s): I82.411 - Acute embolism and thrombosis of right femoral vein Status: Acute Plan In short patient has right lower extremity DVT. He will require mechanical venous thrombectomy of the right lower extremity. Risks benefits complications were discussed in detail with the patient. He understood and consented. We will plan for OR for tomorrow morning. NPO after midnight thank you for allowing us to assist in his care. If there are any questions or concerns please do not hesitate to contact us. Procedures Date of Service Date of Service: 07/14/24
[2024-07-14] MEDS: Acetaminophen 325 MG TABLET 650 MG PO (20:39)
[2024-07-14] MEDS: Zinc Sulfate 220 MG CAPSULE PO (20:40)
[2024-07-14] MEDS: Gabapentin 300 MG CAPSULE PO (20:40)
[2024-07-14 20:55] LABS: INTERNATIONAL NORM RATIO 1.5 (0.9-1.1); Prothrombin Time 17.4 SEC (10.9-12.4)
[2024-07-14] MEDS: Heparin Sodium,Porcine/1/2NS 25,000 UNIT/250 ML IV.SOLN 12.67 UNIT IVCONT (21:52)
[2024-07-15] VITALS (10 sets, daily range): BP systolic 99–120; BP diastolic 59–82; PULSE 69–84; RESP 18–20; TEMP 36.2–37.6; O2SAT 95–99
--- NOTE | 2024-07-15 04:55 | PC.NURSE ---
0450- Called lab after phlebotomy not answering phone for designated chief drafter coverage name to tiger text. 0455- Priority tiger texted Tavo Santiago (Plebotomist) after STAT PTT still not drawn at this time. He stated, someone is on their way now at 0509. Made him aware I was waiting in patient's room as it was a line draw. 0529- STAT PTT drawn.
[2024-07-15] MEDS: 0.9 % Sodium Chloride 1,000 ML 100 ML IVCONT (05:13)
[2024-07-15] MEDS: Morphine Sulfate 4 MG/ML CARTRIDGE 2 MG IVPUSH ×3 (05:23→19:24)
[2024-07-15] MEDS: Omeprazole 40 MG CAPSULE.DR PO (05:29)
[2024-07-15 05:32] LABS: Hemoglobin 11.3 g/dl (14.0-18.0); Mean Corpuscular HGB Conc 30.5 g/dl (31.0-36.0); Mean Corpuscular Hemoglobin 22.1 pg (27.0-33.0); Mean Corpuscular Volume 72.4 fL (80.0-98.0); Mean Platelet Volume 10.6 fL (9.4-12.4); Platelet Count 179 X10*3/uL (160-400); Red Blood Count 5.11 X10*6/uL (4.60-5.80); Red Cell Distribution Width 19.3 % (11.0-16.0); White Blood Count 5.5 X10*3/uL (4.8-10.8)
[2024-07-15 05:44] LABS: Anion Gap 12 (12-20); Blood Urea Nitrogen 9 mg/dL (9-16); Carbon Dioxide 22 mmol/L (22-29); Chloride 107 mmol/L (96-108); Creatinine Clr Calc Pharmacy 221.7; Estimated Glomerular Filt Rate > 60; Glucose Fasting 88 mg/dL (60-99); Potassium 3.6 mmol/L (3.3-5.1); Sodium 137 mmol/L (135-145)
[2024-07-15 06:01] LABS: PTT Heparin Drip > 200.0 SEC (53-77.9)
[2024-07-15 07:44] LABS: PTT Heparin Drip > 200.0 SEC (53-77.9)
--- NOTE | 2024-07-15 08:06 | PC.NURSE ---
Dr Nieto at bedside to obtain consent for Right leg thrombectomy, MD aware of PTT-HD >200 and heparin gtt remains paused. No new orders at this time. patient transported to procedure by IR nurses.
--- NOTE | 2024-07-15 10:20 | W.PM.OPN ---
Operative Note Operative Note Date of Service: 07/15/24 Narrative: Operative note by [facility] Preoperative diagnosis: Deep venous thrombosis of right lower extremity Postoperative diagnosis: Same Procedure: 1 Ultrasound-guided right popliteal vein access 2. Inferior vena cavogram 3. Percutaneous transluminal venous mechanical thrombectomy (96234) 4. Radiologic super visual and interpretation Surgeon:Prabhjot Nieto M.D. Steam Hoist Operator: None Anesthesia: Local with moderate conscious sedation. Total intra service moderate sedation time was 50 minutes. I monitored the patient's level of consciousness and physiologic status continuously throughout the procedure Specimen: None Drains: None Estimated blood loss: 50 mL Implant: None Comorbid conditions: DVT, PE, a flutter, systemic sclerosis, arthralgia, scleroderma, hypertension, GERD Indications: Complex 38-year-old gentleman who has a history of right lower extremity DVT presented initially to the hospital received in ultrasound which demonstrated this right-sided DVT he continued to have progressive pain got a repeat ultrasound 2 days later which demonstrated some common femoral clot which was of concern. He now presents for mechanical venous thrombectomy. The plan of care is mechanical thrombectomy of the lower extremity veins. The patient has signed the informed consent after reviewing risks, complications, benefits, and alternatives previously discussed with the patient. The patient was given the opportunity to ask any additional questions or voice any concerns. All questions were answered to the patient's satisfaction. Procedure in detail: Patient was brought to the Angiography suite prior to which a time-out was called for patient identification and site verification. The patient was placed in a prone position. Bilateral popliteal fossas were prepped out. We first access the right popliteal vein under ultrasound guidance. We then placed a percutaneous 5 Burmese sheath. We were then able to traverse the clot with a Glidewire Advantage 035 wire. We brought in a trail Blazer catheter to confirmed true lumen. At this time 8000 units of heparin was administered. After checking ACT we did administer an additional 2000 of heparin After 5 minutes of circulation time we then dilated up the tract. The Clot Triever over the wire system was then brought into position. We placed the clot triever sheath and exposed the self expanding Nitinol mesh funnel to facilitate clot removal for large-bore side port rapid aspiration. Once this was accomplished we then advanced over the wire the clot triever catheter with the coring element and braided collection bag. This was brought into the inferior vena cava up past this occlusion and extracted back. We did sequential passes. The main angle of the catheter was placed at the 12:00 o'clock, 03:00 o'clock, positions. After each pass had been completed,clot was removed. After each subsequent pass the clot was removed and it was flushed clear and we then brought it in again through this area. Completion venogram demonstrated an excellent result. We subsequently removed catheter wire in sheath. Pursestring suture was placed Direct pressure was held for 10 minutes. Sterile dressing was applied. Patient was brought to the recovery room with stable vitals. Interpretation of films: 1. Ultrasound was used to evaluate access site. Popliteal vein did note to have thrombus. Ultrasound was used to visualize needle entry. Image of ultrasound was saved on PACS 2. Vena cavogram demonstrated thrombus in the right femoral vein. Duplicate venous system had significant femoral thrombus throughout. 3. Completion vena cavogram demonstrated resolution of clot. Conclusion: 1. Successful mechanical clot removal. 2. Anticoagulation status: Resume heparin drip in for hours. Tomorrow may start oral anticoagulation. This note is constructed using voice recognition software. While every effort has been made to ensure accuracy, rural electrification engineer errors may have been included. Thank you for allowing me to participate in the care of your patient. Yours sincerely, Prabhjot Nieto MD, FACS, R.P.V.I.
--- NOTE | 2024-07-15 10:31 | PM.DS ---
DS: Providers Provider Date of Service: 07/16/24 Date of admission: 07/12/24 16:31 Date of discharge: 07/16/24 Primary care physician: Jd Kumar MD Consults: 07/12/24 15:23 Consult to Cardiology Stat Consulting Provider: [facility] Reason for consultation: paroxysmal afib Has provider been notified: Yes 07/12/24 16:31 Consult to Cardiology Routine Consulting Provider: [facility] Reason for consultation: afib rvr, scleroderma 07/14/24 10:45 Consult to Vascular Surgery Routine Consulting Provider: [facility] Reason for consultation: worsening right femoral dvt, pain DS: Diagnosis Discharge Diagnosis (1) DVT (deep venous thrombosis): Status: Acute DS: Summary Hospital Course Hospital Course: from initial hpi: 38-year-old male with history of systemic scleroderma on Ocrevus immunotherapy (follows with [facility], last dose 08/2023-has missed multiple infusion appts per Dr. Geiger), myositis, s/p penile implant, and paroxysmal atrial fibrillation s/p cardioversion x 2 and ablation 4 years ago no longer on ac presented to the ED earlier today for evaluation of pain and swelling in the right thigh ongoing x 3 weeks. Recently had labs at [facility] with negative ddimer but was ultimately unable to undergo infusion due to URI. The thigh has been very painful, 7/10 at rest, and 10/10 with ambulation or any exertion. He does report intermittent palpitations and has noted HR up to 170 on smart watch has notbeen sustained since the ablation. No lighteadedness, sob, chest pains, syncope. Since arrival, patient has had heart rates up to 160, vital signs otherwise stable. No hypotension or hypoxia though oximetry has been borderline low 92%. Show a chronic mild microcytic anemia. Renal function normal, electrolyte levels normal. CRP 6.06, ESR 17. Venous duplex shows DVT of the superficial right femoral vein. EKG shows atrial flutter with 2-1 [address] conduction with minimal st elevations in inferior leads- likely rate related, rate 138. IN the ed, given IV ketorolac, lidocaine patch, 5 mg IV Lopressor x 3, 10 mg IV, and 25 mg metoprolol, diltiazem x1. Also given 1 mg diazepam and oxycodone for pain. hospital course: Patient was admitted for paroxysmal atrial fibrillation with rapid ventricular response. He converted to normal sinus rhythm and was continued on Lopressor, Eliquis. He should follow up with his Cardiology as outpatient. Also noted to have acute right lower extremity DVT and left lower lobe segmental PE. He was initially started on Eliquis 10 mg b.i.d. but then continued to have worsening right lower extremity pain, repeat venous Doppler showed DVT extending to the common femoral vein, was seen by vascular surgery who performed thrombectomy on 07/15/2024. Patient now restarted back on Eliquis loading dose and will deescalate to 5 mg b.i.d. on July 19. He is feeling better will be discharged home. For his systemic scleroderma/myositis he will continue to follow at [facility]. Time Attestation Discharge Coordination Time (in mins): 37 Quality: Safe Use of Opioids Does Pt have an Active Cancer Diagnosis on the Problem List?: No Quality: Stroke Does the patient have a stroke diagnosis?: No Physical Exam Vital Signs: Vital Signs: Last Vital Signs Temp 97.8 F 07/15/24 10:00 Pulse 78 07/15/24 10:00 Resp 18 07/15/24 10:00 BP 105/76 07/15/24 10:00 Pulse Ox 95 07/15/24 10:00 O2 Del Method Room Air 07/15/24 10:00 BMI result Body Mass Index 27.8 Const: General: cooperative, healthy appearing and comfortable Orientation/consciousness: oriented to person, oriented to place and oriented to time Neck: Carotids: no bruits Chest: Chest palpation & inspection: normal inspection of the chest and normal palpation of entire chest wall Resp: Effort & Inspection: normal respiratory effort and able to speak in complete sentences Cardio: Rate: regular rate Heart sounds: S1 normal heart sound present and S2 normal heart sound present Peripheral pulses: Peripheral pulses 2+ throughout GI: Inspection: Yes normal to inspection Skin: Other: +2 edema, General skin exam: dry skin Neuro: General: oriented to person, oriented to place and oriented to time Extrem: Other: Right lower extremity +2 edema Right lower extremity: full ROM, normal capillary refill and edema Left lower extremity: full ROM, normal capillary refill and edema Psych: Mental Status: mental status grossly normal DS: Data Data Completed and Pending Labs on day of discharge: Laboratory Results - last 24 hr 07/14/24 07/15/24 07/15/24 20:25 05:24 07:03 WBC 5.5 RBC 5.11 Hgb 11.3 L Hct 37.0 L MCV 72.4 L MCH 22.1 L MCHC 30.5 L RDW 19.3 H Plt Count 179 D MPV 10.6 Absolute Nucleated RBC 0.000 Nucleated RBC % (auto) 0.0 PT 17.4 H INR 1.5 H aPTT Heparin Protocol 34.0 L > 200.0 H* D > 200.0 H* Sodium 137 Potassium 3.6 Chloride 107 Carbon Dioxide 22 Anion Gap 12 BUN 9 Creatinine 0.53 Estim Creat Clear Calc 221.7 Estimated GFR > 60 Fasting Glucose 88 Calcium 9.0 Discharge Plan Discharge Anticipated Discharge Date/Time: 07/15/24 10:28 Patient Disposition: Home, Self-Care Discharge Diagnosis: dvt and pe, afib Referrals: [facility] [Provider Group] Jd Kumar MD [Primary Care Provider] - Discharge Medications: New Eliquis DVT-PE Treat 30D Start 5 mg (74 tabs) tablets,dose pack 5 mg PO BID Qty: 74 0RF metoprolol succinate [Toprol XL] 25 mg tablet extended release 24 hr 25 mg PO DAILY Qty: 30 0RF oxycodone 5 mg Tablet 5 mg PO Q6H PRN (Reason: Pain, Moderate(Pain Scale 4-6)) Qty: 10 0RF Rx Instructions: Partial Fill upon patient request. Continued omeprazole 40 mg capsule,delayed release(DR/EC) 40 mg PO DAILY Qty: 30 3RF (DME) blood pressure monitor Kit See Rx Instructions .Route Qty: 1 0RF Rx Instructions: As directed gabapentin 300 mg capsule 300 mg PO TID PRN (Reason: Pain) vitamin A 10,000 unit capsule 1 cap PO DAILY ergocalciferol (vitamin D2) 1,250 mcg (50,000 unit) capsule 1,250 mcg PO MO zinc sulfate 50 mg zinc (220 mg) capsule 100 mg PO BEDTIME Discharge Orders: Discharge Order (Routine); Ordered 07/16/24 Ordered By: Rolan Vyas Diet: Advance to usual diet Activity on Discharge: As tolerated Stand Alone Forms: Patient Portal Discharge page Print Language: Yoruba Care Plan Goals: recovery Health Concerns: dvt/pe Plan of Treatment: eliquis 10mg bid for 7 days, then decrease to 5mg bid Assessment: see above Patient Instructions: A-fib (Atrial Fibrillation) (DC), Deep Vein Thrombosis (ED), Blood Thinners (ED)
[2024-07-15] MEDS: Metoprolol Tartrate 25 MG TABLET PO ×2 (11:57→20:14)
[2024-07-15 13:19] LABS: PTT Heparin Drip > 200.0 SEC (53-77.9)
--- NOTE | 2024-07-15 15:21 | P.PNIM_ITS ---
Subjective Subjective Date of Service: 07/15/24 Interval History: Right leg pain Physical Exam 2 Vital Signs: Vital Signs: Last Vital Signs Temp 98.1 F 07/15/24 15:09 Pulse 79 07/15/24 15:09 Resp 18 07/15/24 15:09 BP 103/59 L 07/15/24 15:09 Pulse Ox 97 07/15/24 15:09 O2 Del Method Room Air 07/15/24 15:09 BMI result Body Mass Index 27.8 Const: General: cooperative, healthy appearing and comfortable O rientation/consciousness: oriented to person, oriented to place and oriented to time Neck: Carotids: no bruits Chest: Chest palpation & inspection: normal inspection of the chest and normal palpation of entire chest wall Resp: Effort & Inspection: normal respiratory effort and able to speak in complete sentences Cardio: Rate: regular rate Heart sounds: S1 normal heart sound present and S2 normal heart sound present Peripheral pulses: Peripheral pulses 2+ throughout GI: Inspection: Yes normal to inspection Skin: Other: +2 edema, General skin exam: dry skin Neuro: General: oriented to person, oriented to place and oriented to time Extrem: Other: Right lower extremity +2 edema Right lower extremity: full ROM, normal capillary refill and edema Left lower extremity: full ROM, normal capillary refill and edema Psych: Mental Status: mental status grossly normal Objective Data Active Medications Acetaminophen (Acetaminophen 325 Mg Tablet) 650 mg PO Q6H PRN PRN Reason: Pain, Mild (Pain Scale 1-3), fever or headache Last Admin: 07/14/24 20:39 Dose: 650 mg Documented By: RIKA Apixaban (Apixaban 5 Mg Tablet) 10 mg PO BID [facility] Stop: 07/22/24 09:01 Calcium Carbonate (Calcium Carbonate 750 Mg Tab.Chew) 750 mg PO Q4H PRN PRN Reason: Heartburn Ergocalciferol (Ergocalciferol (Vitamin D2) 1,250 Mcg Capsule) 1,250 mcg PO MO IVETT Gabapentin (Gabapentin 300 Mg Capsule) 300 mg PO TID PRN PRN Reason: neuropathic pain Last Admin: 07/14/24 20:40 Dose: 300 mg Documented By: RIKA Sodium Chloride (Ns) 1,000 mls @ 100 mls/hr IVCONT .Q10H [facility] Last Admin: 07/15/24 05:13 Dose: 100 mls/hr Documented By: RIKA Magnesium Hydroxide (Milk Of Magnesia 30 Ml Oral.Susp) 30 ml PO DAILY PRN PRN Reason: Constipation Melatonin (Melatonin 3 Mg Tablet) 6 mg PO BEDTIME PRN PRN Reason: Insomnia Metoprolol Tartrate (Metoprolol Tartrate 25 Mg Tablet) 25 mg PO TID [facility]; Protocol Last Admin: 07/15/24 11:57 Dose: 25 mg Documented By: CAMI Morphine Sulfate (Morphine Sulfate 4 Mg/Ml Cartridge) 2 mg IVPUSH Q4H PRN; Protocol PRN Reason: Pain, Severe (Pain Scale 7-10) Last Admin: 07/15/24 05:23 Dose: 2 mg Documented By: RIKA Omeprazole (Omeprazole 40 Mg Capsule.Dr) 40 mg PO DAILY@0630 [facility] Last Admin: 07/15/24 05:29 Dose: 40 mg Documented By: RIKA Oxycodone HCl (Oxycodone Hcl Immed Release 5 Mg Tablet) 5 mg PO Q6H PRN PRN Reason: Pain, Moderate(Pain Scale 4-6) Last Admin: 07/13/24 17:48 Dose: 5 mg Documented By: TAYLOR Sodium Chloride (0.9 % Sodium Chloride Flush 3 Ml Syringe) [facility] Last Admin: 07/15/24 08:40 Dose: Not Given Documented By: CAMI Non-Admin Reason: Pt in OR Zinc Sulfate (Zinc Sulfate 220 Mg Capsule) 220 mg PO BEDTIME [facility] Last Admin: 07/14/24 20:40 Dose: 220 mg Documented By: RIKA Labs 07/15/24 05:24 07/15/24 05:24 Labs: Laboratory Results - last 24 hr 07/14/24 07/15/24 07/15/24 20:25 05:24 07:03 MCV 72.4 L MCH 22.1 L MCHC 30.5 L RDW 19.3 H Plt Count 179 D MPV 10.6 Absolute Nucleated RBC 0.000 Nucleated RBC % (auto) 0.0 PT 17.4 H INR 1.5 H aPTT Heparin Protocol 34.0 L > 200.0 H* D > 200.0 H* Anion Gap 12 Estim Creat Clear Calc 221.7 Estimated GFR > 60 Fasting Glucose 88 Calcium 9.0 07/15/24 12:17 MCV MCH MCHC RDW Plt Count MPV Absolute Nucleated RBC Nucleated RBC % (auto) PT INR aPTT Heparin Protocol > 200.0 H* Anion Gap Estim Creat Clear Calc Estimated GFR Fasting Glucose Calcium Assessment and Plan (1) Paroxysmal A-fib: Status: Acute Plan 38M PMH systemic scleroderma, myositis, status post penile implant, paroxysmal atrial fibrillation presented with right lower extremity pain and swelling and AFib with RVR Paroxysmal atrial fibrillation with rapid ventricular response Continue Lopressor, eliquis, now in nsr Acute right lower extremity DVT and left lower lobe segmental PE Started on Eliquis 10 mg b.i.d., change to 5 mg b.i.d. on July 19 s/p thrombectomy 07/15/24 Systemic scleroderma/myositis Outpatient follow-up at [facility] Full code reason for continued hospitalization: post procedure monitoring Quality Stroke Does the patient have a stroke diagnosis?: No VTE Prior VTE?: No VTE Risk Level:: Medical - moderate - high VTE Device Contraindication: Treatment Not Indicated VTE Drug Contraindication: N/A - Med Ordered
[2024-07-15] MEDS: 0.9 % Sodium Chloride Flush 3 ML SYRINGE IVFLUSH (15:24)
[2024-07-15] MEDS: Apixaban 5 MG TABLET 10 MG PO ×2 (15:35→21:50)
--- NOTE | 2024-07-15 15:42 | MHC.CM.PN ---
EMR REVIEWED, PT W/AFIB W/RVR AND RLE DVT, PT CONT'S TO C/O OF PAIN IN LEG, HEPARIN DRIP DC'D AND STARTED ON ELIQUIS, NO PLAN FOR DC AT THIS TIME, CM WILL CONT TO FOLLOW DC NEEDS.
--- NOTE | 2024-07-15 16:35 | PC.NURSE ---
Order clarification- Before pt went to OR this am PTT was >200 and per protocol drip was to be held x 1 hour and decreased by 4ux/kg/hr then restarted at 10ux/kg/hr with PTT's redrawn (pt was in OR for Thrombectomy with Dr. Nieto). Dr. Nieto entered nursing communication to restart drip at previous rate, then upon reading Dr. Nieto's note it states to restart drip in 4 hours then oral anticoagulation to start tomorrow. Reached out to Dr. Nieto at 1118am to clarify and per MD he stated to restart Heparin drip at 10ux/kg/hr now. Repeat PTT remained >200, and subsequently Heparin drip was d/c'd and pt restarted back on Eliquis po. No overt S&S of any bleeding noted. Will continue to monitor closely.
[2024-07-15] MEDS: Zinc Sulfate 220 MG CAPSULE PO (20:14)
[2024-07-15] MEDS: Acetaminophen 325 MG TABLET 650 MG PO (21:50)
[2024-07-15] MEDS: oxyCODONE HCl Immed Release 5 MG TABLET PO (21:51)
[2024-07-16] MEDS: Morphine Sulfate 4 MG/ML CARTRIDGE 2 MG IVPUSH ×2 (00:27→07:54)
[2024-07-16 04:00] VITALS: BP 98/66; PULSE 69; RESP 20; TEMP 36.4; O2SAT 95
[2024-07-16] MEDS: Omeprazole 40 MG CAPSULE.DR PO (06:30)
[2024-07-16] MEDS: 0.9 % Sodium Chloride Flush 3 ML SYRINGE IVFLUSH ×3 (07:28→15:53)
[2024-07-16] MEDS: Metoprolol Tartrate 25 MG TABLET PO ×2 (07:35→15:53)
[2024-07-16 07:38] VITALS: BP 148/87; PULSE 75; RESP 19; TEMP 36; O2SAT 94
[2024-07-16] MEDS: Apixaban 5 MG TABLET 10 MG PO (07:38)
[2024-07-16 07:58] LABS: Anion Gap 10 (12-20); Blood Urea Nitrogen 9 mg/dL (9-16); Carbon Dioxide 24 mmol/L (22-29); Chloride 107 mmol/L (96-108); Estimated Glomerular Filt Rate > 60; Glucose Fasting 93 mg/dL (60-99); Potassium 3.7 mmol/L (3.3-5.1); Sodium 137 mmol/L (135-145)
[2024-07-16 08:01] LABS: Hematocrit 35.7 % (42.0-52.0); Hemoglobin 10.9 g/dl (14.0-18.0); Mean Corpuscular HGB Conc 30.5 g/dl (31.0-36.0); Mean Corpuscular Hemoglobin 22.2 pg (27.0-33.0); Mean Corpuscular Volume 72.7 fL (80.0-98.0); Mean Platelet Volume 10.8 fL (9.4-12.4); Platelet Count 157 X10*3/uL (160-400); Red Blood Count 4.91 X10*6/uL (4.60-5.80); Red Cell Distribution Width 19.4 % (11.0-16.0); White Blood Count 5.3 X10*3/uL (4.8-10.8)
[2024-07-16 08:02] VITALS: O2SAT 100
--- NOTE | 2024-07-16 09:39 | MHC.CM.PN ---
PT WILL DC HOME TODAY VIA SELF TRANSPORT
[2024-07-16 12:00] VITALS: BP 116/76; PULSE 80; RESP 20; TEMP 36.4; O2SAT 98
[2024-07-16] MEDS: oxyCODONE HCl Immed Release 5 MG TABLET PO (15:53)
[2024-07-16 16:00] VITALS: BP 104/71; PULSE 79; RESP 18; TEMP 36.6; O2SAT 96
[2024-07-18 10:51] LABS: ACT 112 Celite s (79-173)
[2024-07-18 10:51] LABS: ACT 173 Celite s (79-173)
== END 2024-07-16 16:45 | disposition home or self-care (01) | DRG 270 ==
LOC: HO.ED 15:15 → HO.EDOVER 16:40 → HO.IMC 07-13 19:48
PROVIDERS: Physician Assistant; Student in an Organized Health Care Education/Training Program; Surgery Vascular Surgery; Admitting Provider Physician Assistant; Emergency Provider Emergency Medicine; PCP Internal Medicine; Visit Provider Internal Medicine
PROC: 06CM3ZZ Extirpation of Matter from Right Femoral Vein, Percutaneous Approach (ICD-10-PCS; principal; 2024-07-15 08:00)
DX: I82.411 Acute embolism and thrombosis of right femoral vein (principal); I26.99 Other pulmonary embolism without acute cor pulmonale; I48.0 Paroxysmal atrial fibrillation; M34.9 Systemic sclerosis, unspecified; Z91.148 Patient's other noncompliance with medication regimen for other reason; Z79.620 Long term (current) use of immunosuppressive biologic; Z79.899 Other long term (current) drug therapy
CPT/HCPCS: 36415; 37187; 71275; 76937; 80048; 80076; 82550; 83735; 84484; 85025; 85027; 85347; 85610; 85652; 85730; 86140; 93005; 93306; 93970; 93971; 99152; 99153; 99285; C1757; C1769; C1887; C1894; J1644; J1885; J2270; Q9957; Q9967

== ENCOUNTER 2024-07-12 16:31 | Outpatient (BNV) | payer OTHER, SELFPAY | END 2024-07-13 07:00 | PROVIDERS: Admitting Provider Physician Assistant; Emergency Provider Emergency Medicine; PCP Internal Medicine; Visit Provider Internal Medicine | DX: I48.91 Unspecified atrial fibrillation (principal) | CPT/HCPCS: 93306 ==

== ENCOUNTER → 2024-07-12 16:31 | Outpatient (BNV) | payer OTHER, SELFPAY | PROVIDERS: Admitting Provider Physician Assistant; Emergency Provider Emergency Medicine; PCP Internal Medicine; Visit Provider Physician Assistant | DX: I48.0 Paroxysmal atrial fibrillation (principal) | CPT/HCPCS: 99223; 99232; 99239 ==

== ENCOUNTER → 2024-07-12 16:31 | Outpatient (BNV) | payer OTHER, SELFPAY | PROVIDERS: Admitting Provider Physician Assistant; Emergency Provider Emergency Medicine; PCP Internal Medicine; Visit Provider Internal Medicine | DX: I48.92 Unspecified atrial flutter (principal); I82.411 Acute embolism and thrombosis of right femoral vein; I26.99 Other pulmonary embolism without acute cor pulmonale | CPT/HCPCS: 99223; 99233 ==

== ENCOUNTER → 2024-07-12 16:31 | Outpatient (BNV) | payer OTHER, SELFPAY | PROVIDERS: Admitting Provider Physician Assistant; Emergency Provider Emergency Medicine; PCP Internal Medicine; Visit Provider Surgery Vascular Surgery | DX: I82.411 Acute embolism and thrombosis of right femoral vein (principal) | CPT/HCPCS: 37187; 99152; 99222 ==

== ENCOUNTER 2024-07-26 09:27 | Outpatient (AMB) | payer OTHER, SELFPAY ==
--- NOTE | 2024-07-26 09:30 | MHC.OFFVIS ---
Intake Visit Reasons: 2 week follow up Thrombectomy 07/15/24 Intake Note: Patient presents for follow up thrombectomy. States he feels sore , minimal pain. Bilateral leg swelling. Patient ambulating with cane. Ankles swell as well. Allergies shellfish Allergy (Unknown, Uncoded 07/12/24 09:13) anaphylaxis HPI HPI 2 week follow up Thrombectomy 07/15/24: Details: Very pleasant 38-year-old gentleman presents for follow-up status post right lower extremity thrombectomy. 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 This did thrombosed. We were able to open up 1 of these systems. He does report a significant improvement. Swelling and discomfort have improved. He now presents for routine postprocedure follow-up. [facility] Medical History Upper respiratory infection Vitamin D deficiency Pulmonary hypertension Systemic sclerosis Atrial fibrillation Scleroderma Surgical History History of penile implant Hx of foot surgery (~06/2023) History of radiofrequency ablation (RFA) procedure for cardiac arrhythmia (~06/2019) History of insertion of tunneled central venous catheter (CVC) with port Family History Mother No problems noted. Father No problems noted. Social History Household Members: None Housing: House Do you presently have visiting nurse or other home services: Yes ([employer]) Alcohol intake: current Alcohol intake frequency: holidays/special occasions only Alcohol type: wine Patient Tobacco Use Status: Never used Tobacco e-Cigarette/Vaping Use: Never Used Second Hand Smoke Exposure: No Advance Directives Date on File: 07/13/24 service: No Current occupational status: disabled Cognitive needs: Yes (Cane) Hearing needs: No Vision needs: Yes (Glasses) Review of Systems Const All systems reviewed & are unremarkable except as noted in HPI and below Reports no additional complaints ENT Reports Normal hearing present Card Denies chest pain, Denies chest pain at rest, Denies chest pain with activity and Denies pedal edema Resp Denies cough GI Denies abdominal pain Musc Denies abnormal gait, Denies muscle cramps and Denies radiating pain into limb Skin/Breast Denies skin ulcer and Denies wounds Neuro Reports Normal hearing present and Denies abnormal gait Psych Reports no additional complaints Physical Exam Const General: cooperative, healthy appearing and comfortable Orientation/consciousness: oriented to person, oriented to place and oriented to time HEENT Head: Yes normal to inspection Neck Neck: Yes normal visual inspection Carotids: no bruits Chest Chest palpation & inspection: normal inspection of the chest Resp Effort & Inspection: normal respiratory effort and able to speak in complete sentences Auscultation: clear to auscultation bilaterally, no crackles, no rales, no rhonchi and no wheezes Cardio Rate: regular rate Rhythm: regular rhythm Heart sounds: S1 normal heart sound present and S2 normal heart sound present Bruits: no carotid bruits Peripheral pulses: Peripheral pulses 2+ throughout GI Inspection: Yes normal to inspection Skin Wounds: no wounds Hair: normal Neuro General: oriented to person, oriented to place and oriented to time Cranial nerves: Yes CN's II-XII intact bilaterally and Yes Normal hearing present Cognition (Neuro): normal cognition Motor exam (neuro): 5/5 motor strength present throughout Extrem Other: venous exam: +1 edema General: No clubbing, No cyanosis and Yes edema Psych Appearance: grossly normal Mental Status: mental status grossly normal Speech and movement: Normal speech and movement present Assessment & Plan Assessment & Plan (1) DVT (deep venous thrombosis): Comment: 07/15/2024 - right lower extremity mechanical venous thrombectomy. Code(s): I82.409 - Acute embolism and thrombosis of unspecified deep veins of unspecified lower extremity Category: Medical Qualifiers: Affected thrombotic vein of extremity: femoral Chronicity: acute DVT location: lower extremity Laterality: right Qualified Code(s): I82.411 - Acute embolism and thrombosis of right femoral vein Plan: In short patient is doing extremely well status post mechanical venous thrombectomy. He is being maintained on Eliquis. I do think that this will require lifelong anticoagulation. 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 One is thrombosed and 1 is patent. In addition we did discuss routine conservative measures including compression elevation and exercise. May develop some post thrombotic swelling but I do think it is fairly well controlled. He will follow up with us on an as-needed basis. Thank you for allowing us to participate in the care of this kind gentleman. Coding Level of Care Code Est Pt Level 4 (35958) Diagnoses DVT (deep venous thrombosis) I82.411 Affected thrombotic vein of extremity: femoral Chronicity: acute DVT location: lower extremity Laterality: right
== END 2024-07-26 09:43 | disposition home or self-care (01) ==
PROVIDERS: PCP Internal Medicine; Visit Provider Surgery Vascular Surgery
DX: I82.411 Acute embolism and thrombosis of right femoral vein (principal)
CPT/HCPCS: 99214

== ENCOUNTER → 2024-07-26 09:27 | Outpatient (BNVA) | payer OTHER, SELFPAY | PROVIDERS: PCP Internal Medicine; Visit Provider Surgery Vascular Surgery | DX: I82.411 Acute embolism and thrombosis of right femoral vein (principal) | CPT/HCPCS: 99212 ==

== ENCOUNTER 2024-07-27 13:35 | Outpatient (AMB) | payer OTHER, SELFPAY ==
--- NOTE | 2024-07-27 13:49 | MHC.PC.OV ---
Vital Signs 07/27/24 13:50 Height 5 ft 11 in Weight 200 lb 8 oz BMI 28.0 BP 126/84 Blood Pressure Location Lt brachial Position Sitting Pulse 76 Pulse Source Pulse Oximeter Pulse Oximetry (%) 97 Oxygen Delivery Method Room Air Intake Visit Reasons: rt leg blood clot removal follow up Software Licensing Analyst Required: No Accompanied by: Self / Same As Patient Allergies shellfish Allergy (Unknown, Uncoded 07/27/24 13:50) anaphylaxis Tobacco use date assessed: 07/27/24 Dental Screening Dental Screen Date: 07/27/24 Did you have a dental visit in the last 12 months?: No Did you have a dental problem in the last 6 months where you did not have access to dental care?: No Was dental information given to patient?: No HPI rt leg blood clot removal follow up HPI Details Patient comes in today for his HDF follow up visit He went to the ER late last month for increasing pain and swelling in the right thigh that he states he's had since 3 weeks ago Venous doppler revealed (+) DVT of the superficial right femoral vein He was referred to vascular surgery for further management and patient underwent thrombectomy 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 Nieto for vascular surgery follow up yesterday and was advised to continue on Eliquis 5 mg BID He has been advised that he will likely require lifelong anticoagulation Patient states that he currently feels okay He denies any headaches or dizziness Denies any chest pains, no increased shortness of breath No nausea/vomiting, no abdominal pain No change in bowel habits noted [facility] Medical History (Updated 08/01/24 @ 00:03 by Jd uKmar MD) Overweight (BMI 25.0-29.9) Upper respiratory infection Vitamin D deficiency Pulmonary hypertension Systemic sclerosis Atrial fibrillation Scleroderma Surgical History History of penile implant Hx of foot surgery (~06/2023) History of radiofrequency ablation (RFA) procedure for cardiac arrhythmia (~06/2019) History of insertion of tunneled central venous catheter (CVC) with port Family History Mother No problems noted. Father No problems noted. Social History Household Members: None Housing: House Do you presently have visiting nurse or other home services: Yes ([employer]) Alcohol intake: current Alcohol intake frequency: holidays/special occasions only Alcohol type: wine Patient Tobacco Use Status: Never used Tobacco e-Cigarette/Vaping Use: Never Used Second Hand Smoke Exposure: No Advance Directives Date on File: 07/13/24 service: No Current occupational status: disabled Cognitive needs: Yes (Cane) Hearing needs: No Vision needs: Yes (Glasses) Questionnaire PHQ-9 Over the last 2 weeks, how often have you been bothered by any of the following problems? 1. Little interest or pleasure in doing things: not at all 2. Feeling down, depressed, or hopeless: not at all 3. Trouble falling or staying asleep, or sleeping too much: not at all 4. Feeling tired or having little energy: not at all 5. Poor appetite or overeating: not at all 6. Feeling bad about yourself - or that you are a failure or have let yourself or your family down: not at all 7. Trouble concentrating on things, such as reading the newspaper or watching television: not at all 8. Moving or speaking so slowly that other people could have noticed. Or the opposite - being so fidgety or restless that you have been moving around a lot more than usual: not at all 9. Thoughts that you would be better off or of hurting yourself in some way: not at all Total score: 0 Depression Screening Interpretation: Negative Depression Screening Done: Yes 57565 - PHQ-9 Billing: Yes Source: Developed by Drs. Alberto Leger, Alyssa Laureano, Gautam Estes and colleagues, with an educational reji from [employer]. Thrive Questionnaire Date Thrive assessed: 07/27/24 I am a: Patient What is your living situation today?: I have a steady place to live Within the past 12 months, did the food you bought not last and you didn't have the money to get more?: Never true Within the past 12 months, did you worry whether your food would run out before you got money to buy more?: Never true Do you have trouble paying for medicines?: No Do you have trouble getting transportation to medical appointments?: No Do you have trouble paying your heating and electricity bill?: No Do you have trouble taking care of your child, family member or friend?: No Do you have trouble with day-to-day activities such as bathing, preparing meals, shopping, managing finances, etc.?: No Are you currently unemployed and looking for a job?: No Are you interested in more education?: No Please select the resources that you would like help with: None Currently or been in a relationship where the following occur: No concerns reported THRIVE Score: 0 AUDIT C Alcohol Use Questionnaire (AUDIT-C) 1. How often do you have a drink containing alcohol?: 2-4 times a month 2. How many drinks containing alcohol do you have on a typical day when you are drinking?: 1 or 2 3. How often do you have six or more drinks on one occasion?: Never Total Score: 2 Score Reviewed/Action Taken: Yes GOVIND-7 AMB Questionnaire GOVIND-7 Date GOVIND - 7 assessed: 07/27/24 Feeling nervous, anxious, or on edge: 0 = Not at all Not being able to stop or control worryin = Not at all Worrying too much about different things: 0 = Not at all Trouble relaxin = Not at all Being so restless that it is hard to sit still: 0 = Not at all Becoming easily annoyed or irritable: 0 = Not at all Feeling afraid as if something awful might happen: 0 = Not at all Total GOVIND-7 score (0-4 normal; 5-9 mild; 10-14 moderate; 15-21 severe): 0 Source: Developed by Drs. Alberto Leger, Alyssa Laureano, Gautam Estes and colleagues, with an educational reji from [employer]. GOVIND-7 Assessment Billing GOVIND-7 Assessment Tool: GOVIND-7 Assessment 07307 Review of Systems Const Denies chills, Reports difficulty sleeping, Reports fatigue and Denies fever(s) ENT Denies dysphagia, Denies dizziness, Denies otalgia, Denies neck pain, Denies odynophagia and Denies sore throat Card Denies chest pain, Denies irregular heart rhythm, Reports palpitations (occasional palpitations) and Reports dyspnea on exertion (mild) Resp Denies chest congestion, Denies cough, Reports dyspnea on exertion (mild) and Denies wheezing GI Denies abdominal pain, Denies constipation, Denies dysphagia, Denies heartburn, Reports loose stools (intermittent - chronic), Denies nausea, Denies odynophagia and Denies vomiting Denies dysuria, Denies urinary frequency and Denies urinary urgency Musc Details: (+) residual pain and swelling of the right lower extremity Denies back pain, Reports myalgias (diffuse), Reports arthralgias (involving multiple joint) and Denies neck pain Skin/Breast Denies rash Neuro Denies dizziness and Denies paresthesias Endo Reports fatigue and Reports palpitations (occasional palpitations) Aller/Immun Denies wheezing Physical exam (Primary Care) Vital Signs: Last Vital Signs Pulse 76 07/27/24 13:50 BP 126/84 07/27/24 13:50 Pulse Ox 97 07/27/24 13:50 Oxygen Delivery Method Room Air 07/27/24 13:50 BMI result Body Mass Index 28.0 Tobacco/Smoking Status: Tobacco use Status Tobacco use date assessed 07/27/24 07/27/24 13:51 Patient Tobacco Use Status Never used Tobacco 07/27/24 13:51 e-Cigarette/Vaping Use Never Used 07/27/24 13:51 PHQ-9: PHQ-9 Score PHQ-9: Total score 0 07/27/24 14:33 Depression Screening Interpretation: Negative Thrive Assessment: Date of Thrive Assessment Date Thrive assessed 07/27/24 07/27/24 13:51 Currently or been in a relationship where the following occur: No concerns reported Const General: no acute distress and alert HENMT Ears: TM's normal bilaterally and EAC's normal Throat: Yes posterior oropharynx normal and Yes tonsils normal (no TP congestion) Neck Neck: Yes no lymphadenopathy and Yes supple Thyroid: Thyroid normal Resp Auscultation: clear to auscultation bilaterally, no rales and no wheezes Cardio Rate: regular rate Rhythm: regular rhythm Heart sounds: no murmurs GI Palpation (GI): Soft to palpation and nontender Auscultation: normal bowel sounds General: Yes no CVA tenderness Back/Spine/Pelvis Back: no CVA tenderness Thoracic/Lumbar Spine: No lumbar spinal tenderness Skin Rashes: no rashes Extrem General: No clubbing, No cyanosis and Yes edema ((+) mild residual edema of the right lower leg and foot) Coding Level of Care Code Est Pt Level 4 (26205) Diagnoses DVT (deep venous thrombosis) I82.411 Affected thrombotic vein of extremity: femoral Chronicity: acute DVT location: lower extremity Laterality: right Systemic sclerosis M34.9 Pulmonary hypertension I27.20 Intermittent palpitations R00.2 Vitamin D deficiency E55.9 Arthralgia, unspecified joint M25.50 Joint pain location: unspecified Overweight (BMI 25.0-29.9) E66.3 Additional Codes GOVIND-7 Assessment Billing - GOVIND-7 Assessment Tool: GOVIND-7 Assessment 29600 ([id number]) Assessment & Plan Assessment & Plan (1) DVT (deep venous thrombosis): Comment: 07/15/2024 - right lower extremity mechanical venous thrombectomy. 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 - patient states that his right leg pain and swelling have been gradually subsiding since Continue Eliquis 5 mg BID He is advised to continue to keep his right leg elevated as often as he can until his current symptoms have cleared up completely Rx for compression stockings provided Will refer him to hematology for further evaluation/work ups for hypercoagulable state and to assess his need for long-term anticoagulation Tx (2) Systemic sclerosis: Code(s): M34.9 - Systemic sclerosis, unspecified Category: Medical Plan: Patient was on Mycophenolate 500 mg 3 tablets BID and oral Prednisone in the past and it does not appear that he is still on these Rx at this time He has been on immunotherapy with Ocrevus infusions but has not received his Rx for a while now - he follows up with [facility], last dose was on 08/2023, and he has missed multiple infusion appts per Dr. 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 States that he already had EGD done a couple of times in the past (3) Pulmonary hypertension: Code(s): I27.20 - Pulmonary hypertension, unspecified Category: Medical Plan: He was on Sildenafil 20 mg TID in the past but not sure if he is still taking Rx at this time (4) Intermittent palpitations: Code(s): R00.2 - Palpitations Category: Medical Plan: S/P cardiac ablation in 2019 Continue Metoprolol ER 25 mg QD and Aspirin 81 mg QD Follow up with cardiology as scheduled (5) Vitamin D deficiency: Code(s): E55.9 - Vitamin D deficiency, unspecified Category: Medical Plan: Continue Vitamin D2 1250 mcg once a week (6) Arthralgia: Code(s): M25.50 - Pain in unspecified joint Category: Medical Qualifiers: Joint pain location: unspecified Qualified Code(s): M25.50 - Pain in unspecified joint Plan: Continue Gabapentin 300 mg TID and Ibuprofen 800 mg TID PRN with food (7) Overweight (BMI 25.0-29.9): Code(s): E66.3 - Overweight Category: Medical Plan: Reinforced diet/exercise as tolerated/lose weight Plan Follow up in 2 months Orders: Referrals Hematology & Oncology Referral I26.99 - Other pulmonary embolism without acute cor pulmonale, I82.411 - Acute embolism and thrombosis of right femoral vein Medications: New [COMPRESSION STOCKINGS (medium strength)] As directed 2 ea 0RF I89.0 - Lymphedema, not elsewhere classified apixaban (Eliquis) 5 mg PO BID 90 days 180 tabs 1RF [COMPRESSION STOCKINGS (medium strength) - knee high] As directed 2 ea 0RF I89.0 - Lymphedema, not elsewhere classified
[2024-07-27 13:50] VITALS: BP 126/84; PULSE 76; O2SAT 97; BMI 28.0
== END 2024-07-27 14:39 | disposition home or self-care (01) ==
PROVIDERS: PCP Internal Medicine; Visit Provider Internal Medicine
DX: I82.411 Acute embolism and thrombosis of right femoral vein (principal); M34.9 Systemic sclerosis, unspecified; I27.20 Pulmonary hypertension, unspecified; R00.2 Palpitations; E55.9 Vitamin D deficiency, unspecified; M25.50 Pain in unspecified joint; E66.3 Overweight

== ENCOUNTER → 2024-07-27 13:35 | Outpatient (BNVA) | payer OTHER, SELFPAY | PROVIDERS: PCP Internal Medicine; Visit Provider Internal Medicine | DX: I82.411 Acute embolism and thrombosis of right femoral vein (principal); M34.9 Systemic sclerosis, unspecified; I27.20 Pulmonary hypertension, unspecified; R00.2 Palpitations; E55.9 Vitamin D deficiency, unspecified; M25.50 Pain in unspecified joint; E66.3 Overweight | CPT/HCPCS: 96127; 99212 ==

== ENCOUNTER 2024-08-20 15:27 | Emergency (ER) | payer OTHER, SELFPAY ==
--- NOTE | ~2024-08-20 | US_ITS ---
EXAMINATION: US TRIPLEX LOWER EXTREMITY, BILATERAL CLINICAL INFORMATION: Swelling, history of DVT COMPARISON: July 14, 2024 TECHNIQUE: Color-flow triplex imaging with spectral analysis and compression Doppler were performed on the bilateral lower extremities. FINDINGS: When compared to the previous examination there is there is still present right lower extremity thrombosis in the proximal femoral vein and profunda femoral vein, as well as bifurcation, unchanged significantly since previous study. There is thrombosis seen in the distal femoral vein and medial portion of femoral vein duplicated vein There is no venous thrombosis in the left lower extremity deep venous system. There is no Worthy's cyst. US/US venous duplex LE BI IMPRESSION: Persistent DVT in the right lower extremity deep vein and known DVT on the left Electronically signed by: Gary George MD 08/20/2024 04:52 PM EDT
--- NOTE | ~2024-08-20 | XR_ITS ---
EXAMINATION: XR ANKLE, LEFT CLINICAL INFORMATION: Pain and swelling COMPARISON: None available. TECHNIQUE: AP, lateral, and mortise views of the left ankle. FINDINGS: Small ossific density in the medial distal fibula. Alignment is anatomic. No erosions. Joint spaces are maintained. Soft tissues are normal. XR/XR ankle LT min 3V IMPRESSION: Small ossific density in the medial distal fibula may be due to avulsion fracture. Electronically signed by: Jackie Hernández MD 08/20/2024 07:03 PM EDT
--- NOTE | ~2024-08-20 | XR_ITS ---
EXAMINATION: XR CHEST CLINICAL INFORMATION: Evaluate port COMPARISON: None available. TECHNIQUE: Frontal view of the chest was obtained. FINDINGS: Cardiac mediastinal silhouette is normal. No areas consolidation. No pleural effusions. Right internal jugular chest port terminates at the cavoatrial junction. XR/XR chest 1V IMPRESSION: Right internal jugular chest port is power injectable. Electronically signed by: Jackie Hernández MD 08/20/2024 05:52 PM EDT
[2024-08-20 15:40] VITALS: BP 125/80; PULSE 104; RESP 16; TEMP 36.4; O2SAT 100; BMI 28.3
--- NOTE | 2024-08-20 15:40 | ED_ITS ---
HPI - General Adult General Chief complaint: Extremity Problem Stated complaint: swollen left ankle/no pressure on it Time Seen by Provider: 08/20/24 17:36 Source: patient Limitations: no limitations History of Present Illness ED Provider: Vero Allen PA-C HPI narrative: 38-year-old male with a history of DVT in the superficial right femoral vein with right thrombectomy performed by Dr. Nieto, atrial flutter 2-1 AV conduction, with pulmonary embolism in the left lower lobe diagnosed on 07/12/2024 history of systemic scleroderma on Ocrevus immunotherapy (follows with [facility], last dose 08/2023-has missed multiple infusion appts per Dr. Geiger), myositis, s/p penile implant, and paroxysmal atrial fibrillation s/p cardioversion x 2 and ablation 4 years ago, presents with left ankle pain and swelling for 2-3 days. Patient states his foot has become profoundly swollen, with the associated pain with range of motion. When patient elevates the limb, his symptoms improve. Denies mechanism of injury such as a sprain, fall or other trauma that preceded his symptoms. Denies chest pain, shortness of breath, recent cough or cold symptoms, unintentional weight gain, hemoptysis. The patient states he is taking his anticoagulant as directed. Related Data Home Medications ?Medication ?Instructions ?Recorded ?Confirmed gabapentin 300 mg capsule 300 mg PO TID PRN Pain 08/28/20 07/18/24 vitamin A 3,000 mcg (10,000 unit) 1 cap PO DAILY 09/03/21 07/18/24 capsule ergocalciferol (vitamin D2) 1,250 1,250 mcg PO MO 08/18/23 07/18/24 mcg (50,000 unit) capsule zinc sulfate 50 mg zinc (220 mg) 100 mg PO BEDTIME 08/18/23 07/18/24 capsule Previous Rx's ?Medication ?Instructions ?Recorded omeprazole 40 mg capsule,delayed 40 mg PO DAILY #30 caps 10/14/22 release blood pressure monitor #1 ea 07/29/23 apixaban 5 mg (74 tabs) tablets in 5 mg PO BID #74 ea 07/12/24 a dose pack (Eliquis DVT-PE Treat 30D Start) metoprolol succinate 25 mg 25 mg PO DAILY #30 tabs 07/12/24 tablet,extended release 24 hr (Toprol XL) oxycodone 5 mg tablet 5 mg PO Q6H PRN Pain, 07/16/24 Moderate(Pain Scale 4-6) #10 tabs COMPRESSION STOCKINGS (medium #2 ea 07/27/24 strength) - knee high apixaban 5 mg tablet (Eliquis) 5 mg PO BID 90 days #180 tabs 07/27/24 Allergies Allergy/AdvReac Type Severity Reaction Status Date / Time shellfish Allergy Unknown anaphylaxis Uncoded 08/20/24 15:43 Review of Systems 2 Constitutional: Constitutional: Denies fatigue and Denies fever(s) Cardiovascular: Cardiovascular: Denies chest pain and Denies dyspnea Respiratory: Respiratory: Denies cough and Denies dyspnea Musculoskeletal: Musculoskeletal: Denies deformity, Reports arthralgias and Reports joint swelling Endocrine: Endocrine: Denies fatigue PMFSH Past Medical History Attestation statement: The following information was validated with the patient. Medical History (Updated 08/20/24 @ 22:21 by VENKATESH Church) Overweight (BMI 25.0-29.9) Upper respiratory infection Vitamin D deficiency Pulmonary hypertension Systemic sclerosis Atrial fibrillation Scleroderma Surgical History History of penile implant Hx of foot surgery (~06/2023) History of radiofrequency ablation (RFA) procedure for cardiac arrhythmia (~06/2019) History of insertion of tunneled central venous catheter (CVC) with port Family History Family History Mother No problems noted. Father No problems noted. Social History Social History Household Members: None Housing: House Do you presently have visiting nurse or other home services: Yes ([facility]) Alcohol intake: current Alcohol intake frequency: holidays/special occasions only Alcohol type: wine Patient Tobacco Use Status: Never used Tobacco Smoked in Last 30 Days: No e-Cigarette/Vaping Use: Never Used Second Hand Smoke Exposure: No Use of substances other than those prescribed or required for medical reasons: No Advance Directives: No Advance Directives Information Provided: No Advance Directives Date on File: 07/13/24 service: No Current occupational status: disabled Cognitive needs: Yes (Cane) Hearing needs: No Vision needs: Yes (Glasses) Physical Exam ED Vital Signs: Vital Signs - 24 hr 08/20/24 15:40 Temperature 97.6 F Pulse Rate 104 H Respiratory Rate 16 Blood Pressure 125/80 Pulse Oximetry 100 Oxygen Delivery Method Room Air BMI result Body Mass Index 28.3 Const Other: Alert, overall well appearing Orientation/consciousness: patient oriented x3 Resp Other: Nonlabored respiration Cardio Other: Normal peripheral perfusion, no pedal edema Skin Other: No new rash Neuro General: patient oriented x3, no focal motor deficits and CN's II-XI intact bilaterally Extrem Other: Patient is able to flex and extend from the ankle, there was no deformity. Skin over bilateral lower extremities is hyperpigmented, thickened dry and scaly, suspicious for chronic venous insufficiency Psych Other: Calm cooperative Course Course Course Narrative: This is an RME: Additional HPI, ROS, PE not included below will be deferred to primary provider. RME assessment and note performed by: Kiara Esptein PA-C 38-year-old male with recent admission - found to have DVT in the superficial right femoral vein with right thrombectomy performed by Dr. Nieto, atrial flutter 2-1 AV conduction, with pulmonary embolism in the left lower lobe diagnosed on 07/12/2024 history of systemic scleroderma on Ocrevus immunotherapy (follows with [facility], last dose 08/2023-has missed multiple infusion appts per Dr. Geiger), myositis, s/p penile implant, and paroxysmal atrial fibrillation s/p cardioversion x 2 and ablation 4 years ago, who presents emergency department with complaints of left leg swelling and pain for several, but now worsening. Patient also reports that this morning he felt as though his heart was irregular, also feeling short of breath and tired. He has been taking his Eliquis, no missed dosages. Plan: Labs, EKG, ultrasound, further ER evaluation needed Medical Decision Making Medical Decision Making MDM Narrative: 38-year-old male with a history of DVT in the superficial right femoral vein with right thrombectomy performed by Dr. Nieto, atrial flutter 2-1 AV conduction, with pulmonary embolism in the left lower lobe diagnosed on 07/12/2024 history of systemic scleroderma on Ocrevus immunotherapy (follows with [facility], last dose 08/2023-has missed multiple infusion appts per Dr. Geiger), myositis, s/p penile implant, and paroxysmal atrial fibrillation s/p cardioversion x 2 and ablation 4 years ago, presents with left ankle pain and swelling for 2-3 days. Patient states his foot has become profoundly swollen, with the associated pain with range of motion. When patient elevates the limb, his symptoms improve. Denies mechanism of injury such as a sprain, fall or other trauma that preceded his symptoms. Denies chest pain, shortness of breath, recent cough or cold symptoms, unintentional weight gain, hemoptysis. The patient states he is taking his anticoagulant as directed. Problem: Autoimmune disease, hypercoagulability History: Per patient I have considered the following differential diagnoses: DVT, cellulitis, chronic venous insufficiency, dependent edema, fracture, dislocation Plan: Patient began his assessment from triage, bilateral DVT studies were obtained. There was no DVT. In regard to the ankle pain, he has no mechanism of injury, we will order x-rays to rule out fracture or dislocation. In regard to the swelling he is noting, he does have chronic skin changes that could indicate venous insufficiency. He could just have dependent edema. He has no overlying erythema of either extremity to suggest cellulitis. Chemistries or just being obtained now, I would have canceled as they are not clinically relevant, troponin was ordered as well, again not clinically relevant, he has no chest pain or shortness of breath. We will wait for them to results I have independently reviewed the following tests: Labs: No leukocytosis, not anemic, no electrolyte abnormality, troponin x2 flat Bilateral DVT study : US/US venous duplex LE BI IMPRESSION: Persistent DVT in the right lower extremity deep vein and known DVT on the left Electronically signed by: Gary George MD 08/20/2024 04:52 PM EDT RP To note, I spoke with the radiologist, there is no DVT on the left, she needs to correct the report, but she did not X-ray left ankle: XR/XR ankle LT min 3V IMPRESSION: Small ossific density in the medial distal fibula may be due to avulsion fracture. Electronically signed by: Jackie Hernández MD 08/20/2024 07:03 PM EDT RP Lab Data 08/20/24 19:43 08/20/24 19:43 Labs: Lab Results 08/20/24 08/20/24 08/20/24 Range/Units 19:42 19:43 20:48 WBC 4.9 (4.8-10.8) X10*3/uL RBC 4.92 (4.60-5.80) X10*6/uL Hgb 11.0 L (14.0-18.0) g/dl Hct 35.7 L (42.0-52.0) % MCV 72.6 L (80.0-98.0) fL MCH 22.4 L (27.0-33.0) pg MCHC 30.8 L (31.0-36.0) g/dl RDW 19.6 H (11.0-16.0) % Plt Count 147 L (160-400) X10*3/uL MPV 9.8 (9.4-12.4) fL Immature Gran % (Auto) 0.4 (0.0-0.4) % Neut % (Auto) 53.0 (45-73) % Lymph % (Auto) 29.9 (20-40) % [place] % (Auto) 14.7 H (2-11) % Eos % (Auto) 1.8 (0-4) % Baso % (Auto) 0.2 (0-2) % Lymph # (Auto) 1.5 (1.2-4.9) X10*3/uL [place] # (Auto) 0.7 (0.1-1.2) X10*3/uL Eos # (Auto) 0.1 (0.0-0.4) X10*3/uL Baso # (Auto) 0.0 (0.0-0.2) X10*3/uL Abs Immat Gran (auto) 0.02 (0.00-0.03) X10*3/uL Absolute Neuts (auto) 2.6 (2.0-8.3) x10*3/uL Absolute Nucleated RBC 0.000 (0.0-0.012) X10*3/uL Nucleated RBC % (auto) 0.0 (0.0-0.2) /100WBC ESR 7 (0-15) MM/HR PT 13.8 H D (10.9-12.4) SEC INR 1.2 H (0.9-1.1) APTT 36.5 (26.0-36.8) SEC Sodium 142 (135-145) mmol/L Potassium 3.3 (3.3-5.1) mmol/L Chloride 111 H (96-108) mmol/L Carbon Dioxide 22 (22-29) mmol/L Anion Gap 12 (12-20) BUN 9 (9-16) mg/dL Creatinine 0.48 L (0.5-1.4) mg/dL Estim Creat Clear Calc 246.9 Estimated GFR > 60 Random Glucose 107 (60-115) mg/dL Uric Acid 4.0 (3.4-7.0) mg/dL Calcium 8.5 (8.4-10.2) mg/dL Magnesium 1.7 (1.6-2.6) mg/dL Total Bilirubin 0.5 (0.0-1.0) mg/dL Direct Bilirubin 0.2 (0.0-0.5) mg/dL AST 36 (5-37) U/L ALT 26 (0-40) U/L Alkaline Phosphatase 111 (39-117) U/L Troponin I High Sens 6.3 D 5.1 (<3.5-35.0) ng/L C-Reactive Protein 0.18 (< or = 0.50) mg/dL Total Protein 7.5 (6.5-8.0) g/dL Albumin 3.9 (3.5-5.0) g/dL Discharge Plan Discharge Clinical Impression: Closed avulsion fracture of distal end of left fibula Patient Disposition: Home, Self-Care Additional Instructions: You sustained an avulsion fracture of the fibula of the left lower extremity. Given there was no associated trauma, the injury was likely secondary to your underlying scleroderma. Use the postop boot to help protect the joint, you need to ambulate with the crutches or cane while using the device. This will help to stabilize and support the joint. You can use [id number] Tylenol 1000 mg taken every 8 hours, as needed for pain. While resting, you can remove the boot and keep the leg elevated to help reduce swelling. There was no new DVT noted with the ultrasound that was performed today. There were no lab abnormalities. Follow up with your providers as needed. Prescriptions: No Action omeprazole 40 mg capsule,delayed release(DR/EC) 40 mg PO DAILY Qty: 30 3RF (DME) blood pressure monitor Kit See Rx Instructions .Route Qty: 1 0RF Rx Instructions: As directed Eliquis DVT-PE Treat 30D Start 5 mg (74 tabs) tablets,dose pack 5 mg PO BID Qty: 74 0RF metoprolol succinate [Toprol XL] 25 mg tablet extended release 24 hr 25 mg PO DAILY Qty: 30 0RF oxycodone 5 mg Tablet 5 mg PO Q6H PRN (Reason: Pain, Moderate(Pain Scale 4-6)) Qty: 10 0RF Rx Instructions: Partial Fill upon patient request. gabapentin 300 mg capsule 300 mg PO TID PRN (Reason: Pain) vitamin A 10,000 unit capsule 1 cap PO DAILY ergocalciferol (vitamin D2) 1,250 mcg (50,000 unit) capsule 1,250 mcg PO MO zinc sulfate 50 mg zinc (220 mg) capsule 100 mg PO BEDTIME Eliquis 5 mg tablet 5 mg PO BID 90 Days Qty: 180 1RF (DME) COMPRESSION STOCKINGS (medium strength) - knee high See Rx Instructions .Route .MEDSUPPLY Qty: 2 0RF Rx Instructions: As directed Print Language: Slovak
--- NOTE | 2024-08-20 15:49 | ECG_ITS ---
Test Reason : PALPITATIONS Blood Pressure : / mmHG Vent. Rate : 110 BPM Atrial Rate : 110 BPM P-R Int : 114 ms QRS Dur : 084 ms QT Int : 382 ms P-R-T Axes : 040 -32 023 degrees QTc Int : 516 ms Sinus tachycardia Left axis deviation Minimal voltage criteria for LVH, may be normal variant ( R in aVL ) Cannot rule out Anterior infarct , age undetermined Abnormal ECG When compared with ECG of 12-JUL-2024 10:39, decrease in ventricular rate Referred By: Kiara Epstein Electronically Signed By:GRANT REYES
--- NOTE | 2024-08-20 19:48 | PC.NURSE ---
confirmed by xray, pt has power port, port accessed and labs drawn and sent.
[2024-08-20 19:49] LABS: MANUAL DIFF FLAG NO
[2024-08-20 19:55] LABS: Basophils Percent Auto 0.2 % (0-2); Eosinophils Absolute Auto 0.1 X10*3/uL (0.0-0.4); Eosinophils Percent Auto 1.8 % (0-4); Hematocrit 35.7 % (42.0-52.0); Imm Gran Abs Auto 0.02 X10*3/uL (0.00-0.03); Imm Gran Pct Auto 0.4 % (0.0-0.4); Lymphocytes Absolute Auto 1.5 X10*3/uL (1.2-4.9); Lymphocytes Percent Auto 29.9 % (20-40); Mean Corpuscular HGB Conc 30.8 g/dl (31.0-36.0); Mean Corpuscular Hemoglobin 22.4 pg (27.0-33.0); Mean Corpuscular Volume 72.6 fL (80.0-98.0); Mean Platelet Volume 9.8 fL (9.4-12.4); Monocytes Absolute Auto 0.7 X10*3/uL (0.1-1.2); Monocytes Percent Auto 14.7 % (2-11); Neutrophils Absolute Auto 2.6 x10*3/uL (2.0-8.3); Platelet Count 147 X10*3/uL (160-400); Red Blood Count 4.92 X10*6/uL (4.60-5.80); Red Cell Distribution Width 19.6 % (11.0-16.0); White Blood Count 4.9 X10*3/uL (4.8-10.8)
[2024-08-20 20:02] LABS: INTERNATIONAL NORM RATIO 1.2 (0.9-1.1); Prothrombin Time 13.8 SEC (10.9-12.4)
[2024-08-20 20:05] LABS: Partial Thromboplastin Time 36.5 SEC (26.0-36.8)
[2024-08-20 20:07] LABS: C Reactive Protein 0.18 mg/dL (< or = 0.50)
[2024-08-20 20:08] LABS: Alanine Aminotransferase 26 U/L (0-40); Albumin Level 3.9 g/dL (3.5-5.0); Alkaline Phosphatase 111 U/L (39-117); Anion Gap 12 (12-20); Aspartate Amino Transferase 36 U/L (5-37); Bilirubin Direct 0.2 mg/dL (0.0-0.5); Bilirubin Total 0.5 mg/dL (0.0-1.0); Blood Urea Nitrogen 9 mg/dL (9-16); Calcium 8.5 mg/dL (8.4-10.2); Carbon Dioxide 22 mmol/L (22-29); Chloride 111 mmol/L (96-108); Creatinine Clr Calc Pharmacy 246.9; Estimated Glomerular Filt Rate > 60; Glucose Random 107 mg/dL (60-115); Magnesium 1.7 mg/dL (1.6-2.6); Potassium 3.3 mmol/L (3.3-5.1); Sodium 142 mmol/L (135-145); Total Protein 7.5 g/dL (6.5-8.0)
[2024-08-20 20:14] LABS: Troponin-I High Sensitivity 6.3 ng/L (<3.5-35.0)
[2024-08-20 21:01] LABS: Erythrocyte Sedimentation Rate 7 MM/HR (0-15)
[2024-08-20 21:21] LABS: Troponin-I High Sensitivity 5.1 ng/L (<3.5-35.0)
[2024-08-21 00:32] VITALS: BP 125/80; PULSE 104; RESP 16; TEMP 36.4; O2SAT 100
== END 2024-08-20 23:00 | disposition home or self-care (01) ==
PROVIDERS: Physician Assistant Medical; Emergency Provider Emergency Medicine; PCP Internal Medicine
DX: S82.832A Other fracture of upper and lower end of left fibula, initial encounter for closed fracture (principal); X58.XXXA Exposure to other specified factors, initial encounter; M79.605 Pain in left leg; R06.02 Shortness of breath; I48.91 Unspecified atrial fibrillation; Z86.718 Personal history of other venous thrombosis and embolism; Z79.01 Long term (current) use of anticoagulants; Z79.899 Other long term (current) drug therapy; Y93.9 Activity, unspecified; Y92.9 Unspecified place or not applicable; Y99.9 Unspecified external cause status
CPT/HCPCS: 36415; 71045; 73610; 80048; 80076; 83735; 84484; 84550; 85025; 85610; 85652; 85730; 86140; 93005; 93970; 99284

== ENCOUNTER → 2024-08-20 15:49 | Outpatient (BNV) | payer OTHER, SELFPAY | PROVIDERS: Emergency Provider Emergency Medicine; PCP Internal Medicine; Visit Provider Internal Medicine | DX: R94.31 Abnormal electrocardiogram [ECG] [EKG] (principal) | CPT/HCPCS: 93010 ==

== ENCOUNTER 2024-08-29 14:36 | Outpatient (AMB) | payer OTHER, SELFPAY ==
[2024-08-29 14:38] VITALS: BP 110/82; BMI 28.6
--- NOTE | 2024-08-29 14:38 | MHC.PC.OV ---
Vital Signs 08/29/24 14:38 Height 5 ft 11 in Weight 205 lb 3 oz BMI 28.6 BP 110/82 Blood Pressure Location Lt brachial Position Sitting Pulse Source Pulse Oximeter Oxygen Delivery Method Room Air Intake [place] [facility] Premix Operator Concentrate Required: No Accompanied by: Self / Same As Patient Allergies shellfish Allergy (Unknown, Uncoded 09/05/24 01:37) anaphylaxis Medication List - Last Reconciled 09/05/24 by Jd Kumar MD apixaban (Eliquis) 5 mg PO BID 90 days blood pressure monitor As directed [COMPRESSION STOCKINGS (medium strength) - knee high As directed] ergocalciferol (vitamin D2) 1,250 mcg PO MO gabapentin 300 mg PO TID PRN metoprolol succinate ER (Toprol XL) 25 mg PO DAILY omeprazole 40 mg PO DAILY oxycodone 5 mg PO Q6H PRN vitamin A 1 cap PO DAILY zinc sulfate 100 mg PO BEDTIME Tobacco use date assessed: 08/29/24 Dental Screening Dental Screen Date: 08/29/24 Did you have a dental visit in the last 12 months?: No Did you have a dental problem in the last 6 months where you did not have access to dental care?: No Was dental information given to patient?: No HPI [facility] swollen ankle HPI Details Patient comes in today for his [facility] follow-up visit He went to the ER last week for increasing pain and swelling in his left ankle over 2-3 days He denies any recent injury or trauma to his ankle and states that the swelling does improve somewhat when he keeps his left foot elevated He had a venous doppler done, which revealed persistent DVT in the right lower extremity but no DVT in the left leg An x-ray of the left ankle was done which revealed possible small avulsion fracture in the ankle His left ankle was placed in a soft cast to help immobilize his ankle pending evaluation by Orthopedics and he was instructed to follow up with his PCP KYLE Patient states that he currently feels okay except for his left ankle symptoms He denies any headaches or dizziness Denies any chest pains, no increased shortness of breath No nausea/vomiting, no abdominal pain No change in bowel habits noted PFSH Medical History Overweight (BMI 25.0-29.9) Upper respiratory infection Vitamin D deficiency Pulmonary hypertension Systemic sclerosis Atrial fibrillation Scleroderma Surgical History History of penile implant Hx of foot surgery (~06/2023) History of radiofrequency ablation (RFA) procedure for cardiac arrhythmia (~06/2019) History of insertion of tunneled central venous catheter (CVC) with port Family History Mother No problems noted. Father No problems noted. Social History Household Members: None Housing: House Do you presently have visiting nurse or other home services: Yes ([employer]) Alcohol intake: current Alcohol intake frequency: holidays/special occasions only Alcohol type: wine Patient Tobacco Use Status: Never used Tobacco e-Cigarette/Vaping Use: Never Used Second Hand Smoke Exposure: No Advance Directives Date on File: 07/13/24 service: No Current occupational status: disabled Cognitive needs: Yes (Cane) Hearing needs: No Vision needs: Yes (Glasses) Questionnaire PHQ-9 Over the last 2 weeks, how often have you been bothered by any of the following problems? 1. Little interest or pleasure in doing things: not at all 2. Feeling down, depressed, or hopeless: not at all 3. Trouble falling or staying asleep, or sleeping too much: not at all 4. Feeling tired or having little energy: not at all 5. Poor appetite or overeating: not at all 6. Feeling bad about yourself - or that you are a failure or have let yourself or your family down: not at all 7. Trouble concentrating on things, such as reading the newspaper or watching television: not at all 8. Moving or speaking so slowly that other people could have noticed. Or the opposite - being so fidgety or restless that you have been moving around a lot more than usual: not at all 9. Thoughts that you would be better off or of hurting yourself in some way: not at all Total score: 0 Depression Screening Interpretation: Negative Depression Screening Done: Yes 83084 - PHQ-9 Billing: Yes Source: Developed by Drs. Alberto Leger, Alyssa Laureano, Gautam Estes and colleagues, with an educational reji from [employer]. Thrive Questionnaire Date Thrive assessed: 08/29/24 I am a: Patient What is your living situation today?: I have a steady place to live Within the past 12 months, did the food you bought not last and you didn't have the money to get more?: Never true Within the past 12 months, did you worry whether your food would run out before you got money to buy more?: Never true Do you have trouble paying for medicines?: No Do you have trouble getting transportation to medical appointments?: No Do you have trouble paying your heating and electricity bill?: No Do you have trouble taking care of your child, family member or friend?: No Do you have trouble with day-to-day activities such as bathing, preparing meals, shopping, managing finances, etc.?: No Are you currently unemployed and looking for a job?: No Are you interested in more education?: No Please select the resources that you would like help with: None Currently or been in a relationship where the following occur: No concerns reported THRIVE Score: 0 AUDIT C Alcohol Use Questionnaire (AUDIT-C) 1. How often do you have a drink containing alcohol?: 2-4 times a month 2. How many drinks containing alcohol do you have on a typical day when you are drinking?: 1 or 2 3. How often do you have six or more drinks on one occasion?: Never Total Score: 2 Score Reviewed/Action Taken: Yes GOVIND-7 AMB Questionnaire GOVIND-7 Date GOVIND - 7 assessed: 08/29/24 Feeling nervous, anxious, or on edge: 0 = Not at all Not being able to stop or control worryin = Not at all Worrying too much about different things: 0 = Not at all Trouble relaxin = Not at all Being so restless that it is hard to sit still: 0 = Not at all Becoming easily annoyed or irritable: 0 = Not at all Feeling afraid as if something awful might happen: 0 = Not at all Total GOVIND-7 score (0-4 normal; 5-9 mild; 10-14 moderate; 15-21 severe): 0 Source: Developed by Drs. Alberto L. AfricaAlyssa velasquez, Gautam Estes and colleagues, with an educational reji from [employer]. GOVIND-7 Assessment Billing GOVIND-7 Assessment Tool: GOVIND-7 Assessment 44007 Review of Systems Const Denies chills, Reports difficulty sleeping, Reports fatigue and Denies fever(s) ENT Denies dysphagia, Denies dizziness, Denies otalgia, Denies neck pain, Denies odynophagia and Denies sore throat Card Denies chest pain, Denies irregular heart rhythm, Reports palpitations (occasional palpitations) and Reports dyspnea on exertion (mild) Resp Denies chest congestion, Denies cough, Reports dyspnea on exertion (mild) and Denies wheezing GI Denies abdominal pain, Denies constipation, Denies dysphagia, Denies heartburn, Reports loose stools (intermittent - chronic), Denies nausea, Denies odynophagia and Denies vomiting Denies dysuria, Denies urinary frequency and Denies urinary urgency Musc Denies back pain, Reports myalgias (diffuse), Reports arthralgias (involving multiple joint; more recently in the left ankle), Reports joint swelling (in the left ankle) and Denies neck pain Skin/Breast Denies rash Neuro Denies dizziness and Denies paresthesias Endo Reports fatigue and Reports palpitations (occasional palpitations) Aller/Immun Denies wheezing Physical exam (Primary Care) Vital Signs: Last Vital Signs BP 110/82 08/29/24 14:38 Oxygen Delivery Method Room Air 08/29/24 14:38 BMI result Body Mass Index 28.6 Tobacco/Smoking Status: Tobacco use Status Tobacco use date assessed 08/29/24 08/29/24 14:46 Patient Tobacco Use Status Never used Tobacco 08/29/24 14:46 e-Cigarette/Vaping Use Never Used 08/29/24 14:46 PHQ-9: PHQ-9 Score PHQ-9: Total score 0 08/29/24 15:19 Depression Screening Interpretation: Negative Thrive Assessment: Date of Thrive Assessment Date Thrive assessed 08/29/24 08/29/24 14:46 Currently or been in a relationship where the following occur: No concerns reported Const General: no acute distress and alert HENMT Ears: TM's normal bilaterally and EAC's normal Throat: Yes posterior oropharynx normal and Yes tonsils normal (no TP congestion) Neck Neck: Yes no lymphadenopathy and Yes supple Thyroid: Thyroid normal Resp Auscultation: clear to auscultation bilaterally, no rales and no wheezes Cardio Rate: regular rate Rhythm: regular rhythm Heart sounds: no murmurs GI Palpation (GI): Soft to palpation and nontender Auscultation: normal bowel sounds General: Yes no CVA tenderness Back/Spine/Pelvis Back: no CVA tenderness Thoracic/Lumbar Spine: No lumbar spinal tenderness Skin Rashes: no rashes Extrem General: No clubbing, No cyanosis and Yes edema ((+) mild residual edema of the right lower leg and foot) Right lower extremity: lower leg Details: non-pitting edema Details: 2+ Left lower extremity: ankle Details: tenderness Location: of the medial malleolus; no other and swelling Details: diffusely Coding Level of Care Code Est Pt Level 4 (49552) Diagnoses Avulsion fracture of distal fibula S82.839A DVT (deep venous thrombosis) I82.411 Affected thrombotic vein of extremity: femoral Chronicity: acute DVT location: lower extremity Laterality: right Systemic sclerosis M34.9 Pulmonary hypertension I27.20 Intermittent palpitations R00.2 Vitamin D deficiency E55.9 Arthralgia, unspecified joint M25.50 Joint pain location: unspecified Overweight (BMI 25.0-29.9) E66.3 Additional Codes GOVIND-7 Assessment Billing - GOVIND-7 Assessment Tool: GOVIND-7 Assessment 78437 ([id number]) PHQ-9 - 51572 - PHQ-9 Billing: Yes ([id number]) Assessment & Plan Assessment & Plan (1) Avulsion fracture of distal fibula: Code(s): S82.839A - Other fracture of upper and lower end of unspecified fibula, initial encounter for closed fracture Category: Medical Plan: X-rays of the left ankle done at the ER last week revealed (+) small ossific density in the medial distal fibula suggestive of an avulsion fracture Patient denies any recent injury or trauma to his ankle so the injury was likely secondary to his systemic sclerosis His left ankle is currently in a soft boot/cast to help immobilize his ankle Will refer him to orthopedics KYLE for further evaluation and management Per request, will provide him with a small amount of Oxycodone 5 mg to take every 6 to 8 hours PRN only for severe pain (2) DVT (deep venous thrombosis): Comment: 07/15/2024 - right lower extremity mechanical venous thrombectomy. 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 Young next week (3) Systemic sclerosis: Code(s): M34.9 - Systemic sclerosis, unspecified Category: Medical Plan: Patient was on Mycophenolate 500 mg 3 tablets BID and oral Prednisone in the past and it does not appear that he is still on these Rx at this time He has been on immunotherapy with Ocrevus infusions but has not received his Rx for a while now - he follows up with [facility], last dose was on 08/2023, and he has missed multiple infusion appts per Dr. 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 States that he already had EGD done a couple of times in the past (4) Pulmonary hypertension: Code(s): I27.20 - Pulmonary hypertension, unspecified Category: Medical Plan: He was on Sildenafil 20 mg TID in the past but unclear if he is still taking Rx at this time (5) Intermittent palpitations: Code(s): R00.2 - Palpitations Category: Medical Plan: S/P cardiac ablation in 2019 Continue Metoprolol ER 25 mg QD and Aspirin 81 mg QD Follow up with cardiology as scheduled (6) Vitamin D deficiency: Code(s): E55.9 - Vitamin D deficiency, unspecified Category: Medical Plan: Continue Vitamin D2 1250 mcg once a week (7) Arthralgia: Code(s): M25.50 - Pain in unspecified joint Category: Medical Qualifiers: Joint pain location: unspecified Qualified Code(s): M25.50 - Pain in unspecified joint Plan: Continue Gabapentin 300 mg TID and Ibuprofen 800 mg TID PRN with food (8) Overweight (BMI 25.0-29.9): Code(s): E66.3 - Overweight Category: Medical Plan: Reinforced diet; exercise and weight loss are not practical at this time Plan Follow up as scheduled next month Orders: Referrals Orthopedics Referral S82.839A - Other fracture of upper and lower end of unspecified fibula, initial encounter for closed fracture Medications: Changed From oxycodone Partial Fill upon patient request. 5 mg PO Q6H PRN 10 tabs 0RF Pain, Moderate(Pain Scale 4-6) S82.839A - Other fracture of upper and lower end of unspecified fibula, initial encounter for closed fracture To oxycodone take only as needed for severe pain 5 mg PO Q6H PRN 15 tabs 0RF severe ankle pain S82.839A - Other fracture of upper and lower end of unspecified fibula, initial encounter for closed fracture
== END 2024-08-29 15:23 | disposition home or self-care (01) ==
PROVIDERS: PCP Internal Medicine; Visit Provider Internal Medicine
DX: I82.411 Acute embolism and thrombosis of right femoral vein (principal); M34.9 Systemic sclerosis, unspecified; I27.20 Pulmonary hypertension, unspecified; R00.2 Palpitations; S82.839A Other fracture of upper and lower end of unspecified fibula, initial encounter for closed fracture; E55.9 Vitamin D deficiency, unspecified; M25.50 Pain in unspecified joint; E66.3 Overweight; Z68.28 Body mass index [BMI] 28.0-28.9, adult

== ENCOUNTER → 2024-08-29 14:36 | Outpatient (BNVA) | payer OTHER, SELFPAY | PROVIDERS: PCP Internal Medicine; Visit Provider Internal Medicine | DX: S82.831A Other fracture of upper and lower end of right fibula, initial encounter for closed fracture (principal); I82.411 Acute embolism and thrombosis of right femoral vein; M34.9 Systemic sclerosis, unspecified; I27.20 Pulmonary hypertension, unspecified; R00.2 Palpitations; E55.9 Vitamin D deficiency, unspecified; M25.50 Pain in unspecified joint; E66.3 Overweight; Z68.28 Body mass index [BMI] 28.0-28.9, adult; Z71.3 Dietary counseling and surveillance | CPT/HCPCS: 96127; 99212 ==

== ENCOUNTER 2024-09-08 10:36 | Outpatient (AMB) | payer OTHER, SELFPAY ==
--- NOTE | 2024-09-08 10:38 | MHC.OFFVIS ---
Vital Signs 09/08/24 10:46 Height 5 ft 11 in Weight 205 lb BMI 28.6 Intake Visit Reasons: FC- Left ankle sprain/avulsion fracture Intake Note: Ray a 38 year old male who presents today for an ER follow up of left ankle. Patient reports having ankle pain and swelling for a couple of months prior to his [facility] [place]. States no injury that he is aware of. He requested an x-ray to be performed and was placed in a short walking boot. States being fit improperly and his toes were sticking out of boot. His pain increases with boot wear. He continues to have pain at the lateral aspect with applying weight, at rest no pain. States stepping wrong causes shooting pain that radiates up his leg and will feel as if his ankle will give out. Hx of blood clots. Allergies shellfish Allergy (Unknown, Uncoded 09/08/24 10:53) anaphylaxis Medication List - Last Reconciled 09/08/24 by Solomon Mancera PA-C apixaban (Eliquis) 5 mg PO BID 90 days blood pressure monitor As directed [COMPRESSION STOCKINGS (medium strength) - knee high As directed] ergocalciferol (vitamin D2) 1,250 mcg PO MO gabapentin 300 mg PO TID PRN metoprolol succinate ER (Toprol XL) 25 mg PO DAILY omeprazole 40 mg PO DAILY oxycodone 5 mg PO Q6H PRN vitamin A 1 cap PO DAILY zinc sulfate 100 mg PO BEDTIME HPI HPI FC- Left ankle sprain/avulsion fracture: Details: 38 yo male presents to the office today for pain in the left ankle . He denies injury. States he was dx with DVT approx 1 month ago in which she had a thrombectomy for. He is unsure if this is related to this but feels he has had left lower extremity swelling and discomfort in the ankle for quite some time and is not improving. He was seen in the emergency department in early August where he was placed in a boot and referred to our office for ortho eval. He states the boot causes more pain it does not fit right. [facility] Medical History Overweight (BMI 25.0-29.9) Upper respiratory infection Vitamin D deficiency Pulmonary hypertension Systemic sclerosis Atrial fibrillation Scleroderma Surgical History History of penile implant Hx of foot surgery (~06/2023) History of radiofrequency ablation (RFA) procedure for cardiac arrhythmia (~06/2019) History of insertion of tunneled central venous catheter (CVC) with port Family History Mother No problems noted. Father No problems noted. Social History Household Members: None Housing: House Do you presently have visiting nurse or other home services: Yes ([employer]) Alcohol intake: current Alcohol intake frequency: holidays/special occasions only Alcohol type: wine Patient Tobacco Use Status: Never used Tobacco e-Cigarette/Vaping Use: Never Used Second Hand Smoke Exposure: No Advance Directives Date on File: 07/13/24 service: No Current occupational status: disabled Cognitive needs: Yes (Cane) Hearing needs: No Vision needs: Yes (Glasses) Review of Systems Const All systems reviewed & are unremarkable except as noted in HPI and below Physical Exam Vital Signs: BMI result Body Mass Index 28.6 Const General: cooperative and no acute distress Orientation/consciousness: patient oriented x3 Resp Effort & Inspection: normal respiratory effort and able to speak in complete sentences Cardio Peripheral pulses: Peripheral pulses 2+ throughout Neuro General: patient oriented x3 Extrem Other: Left ankle normal to inspection there is significant swelling in the left lower extremity. He has mild tenderness over the ATFL. Full range of motion of the ankle no crepitus neurovascularly intact. Results Reviewed Results Reviewed: X-rays of the left ankle obtained on August 20 in the emergency department are negative for any acute or chronic abnormalities. Ankle mortise intact. Assessment & Plan Assessment & Plan (1) Left ankle sprain: Code(s): S93.402A - Sprain of unspecified ligament of left ankle, initial encounter Category: Medical Plan: At this time I recommend a course of physical therapy for range of motion, gentle strengthening proprioceptive training. He was given a lace-up ankle brace in the office today to help with support. Can discontinue the use of the boot. I explained that this could be a flare up due to the excessive swelling in the leg from the blood clot and his rheumatologic condition given the absence of injury. He will increase activities as tolerated she is back as needed. Orders: Orders PT Evaluation and Treatment Today S93.402A - Sprain of unspecified ligament of left ankle, initial encounter Coding Level of Care Code New Pt Level 3 (80191) Complex EM visit Add On G2211 Diagnoses Left ankle sprain S93.402A
[2024-09-08 10:46] VITALS: BMI 28.6
== END 2024-09-08 11:22 | disposition home or self-care (01) ==
PROVIDERS: PCP Internal Medicine; Visit Provider Physician Assistant
DX: S93.402A Sprain of unspecified ligament of left ankle, initial encounter (principal)
CPT/HCPCS: 99203; G2211

== ENCOUNTER → 2024-09-08 10:36 | Outpatient (BNVA) | payer OTHER, SELFPAY | PROVIDERS: PCP Internal Medicine; Visit Provider Physician Assistant | DX: S93.402A Sprain of unspecified ligament of left ankle, initial encounter (principal) | CPT/HCPCS: 99202 ==

== ENCOUNTER → 2025-05-09 23:59 | Outpatient (BNV) | payer OTHER, SELFPAY | PROVIDERS: PCP Internal Medicine; Visit Provider Internal Medicine | DX: M34.9 Systemic sclerosis, unspecified (principal); I48.0 Paroxysmal atrial fibrillation; K21.9 Gastro-esophageal reflux disease without esophagitis | CPT/HCPCS: G0180 ==

== ENCOUNTER 2025-10-06 15:05 | Emergency (ER) | payer OTHER, SELFPAY ==
[2025-10-06] VITALS (9 sets, daily range): BP systolic 107–129; BP diastolic 72–97; PULSE 81–101; RESP 16–18; TEMP 36.8–37.8; O2SAT 95–98
--- NOTE | ~2025-10-06 | XR_ITS ---
EXAMINATION: XR CHEST CLINICAL INFORMATION: fever COMPARISON: Chest 09-11. TECHNIQUE: Frontal view of the chest was obtained. FINDINGS: There is a right central venous port with its tip in mid SVC. Lungs are hypoexpanded but clear. At size is borderline normal. Pulmonary vascularity is normal. No gross bony abnormality seen. XR/XR chest 1V IMPRESSION: Hypoexpanded lungs without acute process. Stable right central venous port comparison 08/20/24 Electronically signed by: Kiel Rivero MD 10/06/2025 05:06 PM EST RP
--- NOTE | ~2025-10-06 | CT_ITS ---
CLINICAL HISTORY: headache fever, immunocompromise CT head without contrast Comparison: None Findings: No intracranial mass, midline shift, hydrocephalus, or acute hemorrhage. No CT evidence of acute ischemia. The cerebellar tonsils appear to extend proximally 1 cm inferior to the level of the foramen magnum (measured on 8; 78), suggesting history of Chiari type 1 malformation. Visualized paranasal sinuses and mastoid air cells normal. Orbits unremarkable. No skull fracture Impression: 1. No acute intracranial abnormalities. 2. Findings suggesting Chiari type 1 malformation. This document has been electronically signed by: Matteo Browning MD on 10/06/2025 18:54:54
[2025-10-06 16:28] LABS: MANUAL DIFF FLAG NO
[2025-10-06 16:32] LABS: Hematocrit 35.9 % (42.0-52.0); Hemoglobin 10.8 g/dl (14.0-18.0); Imm Gran Abs Auto 0.01 X10*3/uL (0.00-0.03); Imm Gran Pct Auto 0.2 % (0.0-0.4); Lymphocytes Absolute Auto 0.2 X10*3/uL (1.2-4.9); Mean Corpuscular HGB Conc 30.1 g/dl (31.0-36.0); Mean Corpuscular Hemoglobin 21.3 pg (27.0-33.0); Mean Corpuscular Volume 70.9 fL (80.0-98.0); NRBC Abs Auto 0.000 X10*3/uL (0.0-0.012); NRBC Pct Auto 0.0 /100WBC (0.0-0.2); Platelet Count 126 X10*3/uL (160-400); Red Blood Count 5.06 X10*6/uL (4.60-5.80); White Blood Count 4.9 X10*3/uL (4.8-10.8)
--- NOTE | 2025-10-06 16:32 | ED.FEVER ---
HPI - Fever General Chief Complaint: Fever Stated Complaint: Nausea, diarrhea, stiff neck, fever Time Seen by Provider: 10/06/25 15:18 History of Present Illness ED Provider: Buck Santaan MD HPI Narrative: 39-year-old male with systemic scleroderma myositis nearly a month ago had an monoclonal antibody infusion to CD20 for about 24 hours now he has felt feverish with diffuse severe myalgias worse than baseline myositis. Generalized headache now feels like it is radiating down the neck and spine some stiffness of the neck. No vision symptoms focal motor deficits. Denies abdominal pain he has a little dry cough no phlegm production. He has a rash of the face that is chronic felt to be related to scleroderma Related Data Home Medications ?Medication ?Instructions ?Recorded ?Confirmed gabapentin 300 mg capsule 300 mg PO TID PRN Pain 08/28/20 09/08/24 vitamin A 3,000 mcg (10,000 unit) 1 cap PO DAILY 09/03/21 09/08/24 capsule ergocalciferol (vitamin D2) 1,250 1,250 mcg PO MO 08/18/23 09/08/24 mcg (50,000 unit) capsule zinc sulfate 50 mg zinc (220 mg) 100 mg PO BEDTIME 08/18/23 09/08/24 capsule Previous Rx's ?Medication ?Instructions ?Recorded omeprazole 40 mg capsule,delayed 40 mg PO DAILY #30 caps 10/14/22 release blood pressure monitor #1 ea 07/29/23 COMPRESSION STOCKINGS (medium #2 ea 07/27/24 strength) - knee high oxycodone 5 mg tablet 5 mg PO Q6H PRN severe ankle pain 08/29/24 #15 tabs metoprolol succinate 25 mg 25 mg PO DAILY #90 tabs 02/20/25 tablet,extended release 24 hr (Toprol XL) apixaban 5 mg tablet (Eliquis) 5 mg PO BID 90 days #180 tabs 03/05/25 oseltamivir 75 mg capsule (Tamiflu) 75 mg PO BID 5 days #10 caps 10/06/25 Allergies Allergy/AdvReac Type Severity Reaction Status Date / Time shellfish Allergy Unknown anaphylaxis Uncoded 10/06/25 15:27 [facility] Past Medical History Medical History Overweight (BMI 25.0-29.9) Upper respiratory infection Vitamin D deficiency Pulmonary hypertension Systemic sclerosis Atrial fibrillation Scleroderma Surgical History History of penile implant Hx of foot surgery (~06/2023) History of radiofrequency ablation (RFA) procedure for cardiac arrhythmia (~06/2019) History of insertion of tunneled central venous catheter (CVC) with port Family History Family History Mother No problems noted. Father No problems noted. Social History Social History Household Members: None Housing: House Do you presently have visiting nurse or other home services: Yes ([employer]) Alcohol intake: current Alcohol intake frequency: holidays/special occasions only Alcohol type: wine Patient Tobacco Use Status: Never used Tobacco Smoked in Last 30 Days: No e-Cigarette/Vaping Use: Never Used Second Hand Smoke Exposure: No Use of substances other than those prescribed or required for medical reasons: No Advance Directives: No Advance Directives Information Provided: No Advance Directives Date on File: 07/13/24 service: No Current occupational status: disabled Cognitive needs: Yes (Cane) Hearing needs: No Vision needs: Yes (Glasses) Physical Exam Exam: Exam: EXAM: Gen: Awake alert chronically ill-appearing slightly pale and dehydrated Head: Atraumatic Eyes: Anicteric, Normal conjunctiva. ENT: Moist mucosa, no pallor. ? Neck: Not overtly rigid but he does resist flexion due to pain. Skin: ?Chronic flat purpuric type scattered rash of the face he says this is chronic and unchanged Respiratory: Breathing comfortably, No distress.Clear to auscultation bilaterally, symmetric chest expansion, No wheeze, rales, ronchi. Cardiovascular: Regular rate and rhythm. No murmurs or rub. Well perfused periphery, warm extremities. No edema. ? Abdominal: No focal tenderness. Soft, no objective distension. No palpable masses or obvious organomegaly. ?No guarding, no rebound tenderness or other peritoneal findings. : No flank tenderness. Neuro: Alert. Gross movement of all extremities intact. ? Psych: Calm. Cooperative. MSK: No grossly visible deformity. Thin and digits slightly pale Vital signs: See flowsheet Vital Signs: Vital Signs: Last Vital Signs Temp 98.3 F 10/06/25 21:06 Pulse 81 10/06/25 21:06 Resp 16 10/06/25 21:06 BP 107/83 10/06/25 21:06 Pulse Ox 96 10/06/25 21:06 O2 Del Method Room Air 10/06/25 21:06 BMI result Body Mass Index 30.0 Medications Administered Discontinued Medications Generic Name Dose Route Start Last Admin Trade Name Prema PRN Reason Stop Dose Admin Dexamethasone Sodium Phosphate 10 mg 10/06/25 16:30 10/06/25 17:14 Dexamethasone Sod Phosphate 10 Mg/Ml Vial IVPUSH 10/06/25 16:31 10 mg ONCE ONE Administration Piperacillin Sod/Tazobactam 50 mls @ 100 mls/hr 10/06/25 15:36 10/06/25 17:14 Sod 3.375 gm/ Sodium Chloride IV 10/06/25 16:05 Infused ONCE ONE Infusion Ceftriaxone Sodium 2 gm/ 50 mls @ 100 mls/hr 10/06/25 16:30 10/06/25 17:50 Sodium Chloride IV 10/06/25 16:59 Infused ONCE ONE Infusion Vancomycin HCl 2,000 mg in 500 mls @ 250 mls/hr 10/06/25 16:30 10/06/25 20:00 Vancomycin/Ns IV 10/06/25 18:29 Infused ONCE ONE Infusion Lactated Ringer's 1,000 mls @ 999 mls/hr 10/06/25 16:30 10/06/25 20:40 Lr IV 10/06/25 18:30 Infused .Q1H1M IVETT Infusion Acetaminophen 1,000 mg in 100 mls @ 400 mls/hr 10/06/25 16:30 10/06/25 17:50 Ofirmev IV 10/06/25 16:44 Infused ONCE ONE Infusion Ketorolac Tromethamine 10 mg 10/06/25 18:33 10/06/25 19:30 Ketorolac Tromethamine 15 Mg/Ml Vial IVPUSH 10/06/25 18:34 10 mg ONCE ONE Administration Metoclopramide HCl 10 mg 10/06/25 18:33 10/06/25 19:30 Metoclopramide Hcl 10 Mg/2 Ml Vial IVPUSH 10/06/25 18:34 10 mg ONCE ONE Administration Oseltamivir Phosphate 75 mg 10/06/25 20:14 10/06/25 20:33 Oseltamivir Phosphate 75 Mg Capsule PO 10/06/25 20:15 75 mg ONCE ONE Administration Medical Decision Making Medical Decision Making MDM Narrative: Medical Decision Makin-year-old male with scleroderma on immunocompromise using monoclonal antibody infusion now with fever. He does have a mild dry cough but no other focal signs of bacterial infection he does have headache and neck pain and he and I discussed at length the possibility of meningitis or [employer] infection. The patient is on apixaban and has been adherent with this therefore to dangerous to perform lumbar puncture we will cover empirically for possible meningitis/[employer] infection. Brain CT blood culture urinalysis broad labs ordered. Empiric meningitis coverage including dexamethasone to prevent secondary complications. If the primary admitting team feels necessary the patient can have apixaban withheld and lumbar puncture performed later. Until them sepsis criteria due to immunocompromise status, heart rate over 90 and almost certainly his rectal temp we will be elevated he is very warm to the touch. Presumed sepsis. He does have a indwelling port for many years the surrounding area does not appear erythematous and I doubt this is a source but it must be considered. Preliminary Favored Differential Diagnosis: Sepsis, bacteremia, opportunistic infection, meningitis [employer] infection, pneumonia, UTI, viral syndrome among additional considered etiologies Testing Interpreted Independently: ?See below for details Radiology or Lab testing Results Reviewed: ?See below for details Consults: ?See below for details Independent Historians/External Chart Reviews: ?See below for details Social Determinants of Health Impacting MDM/Planning: ?See below for details Lab Data 10/06/25 16:19 10/06/25 16:19 Labs: Lab Results 10/06/25 10/06/25 10/06/25 Range/Units 16:19 17:48 18:26 WBC 4.9 (4.8-10.8) X10*3/uL RBC 5.06 (4.60-5.80) X10*6/uL Hgb 10.8 L (14.0-18.0) g/dl Hct 35.9 L (42.0-52.0) % MCV 70.9 L (80.0-98.0) fL MCH 21.3 L (27.0-33.0) pg MCHC 30.1 L (31.0-36.0) g/dl RDW 19.6 H (11.0-16.0) % Plt Count 126 L (160-400) X10*3/uL MPV Not Reportable Immature Gran % (Auto) 0.2 (0.0-0.4) % Neut % (Auto) 80.2 H (45-73) % Lymph % (Auto) 3.3 L (20-40) % [place] % (Auto) 15.9 H (2-11) % Eos % (Auto) 0.2 (0-4) % Baso % (Auto) 0.2 (0-2) % Lymph # (Auto) 0.2 L (1.2-4.9) X10*3/uL [place] # (Auto) 0.8 (0.1-1.2) X10*3/uL Eos # (Auto) 0.0 (0.0-0.4) X10*3/uL Baso # (Auto) 0.0 (0.0-0.2) X10*3/uL Abs Immat Gran (auto) 0.01 (0.00-0.03) X10*3/uL Absolute Neuts (auto) 3.9 (2.0-8.3) x10*3/uL Absolute Nucleated RBC 0.000 (0.0-0.012) X10*3/uL Nucleated RBC % (auto) 0.0 (0.0-0.2) /100WBC PT 14.8 H (11.2-13.5) SEC INR 1.2 H (0.9-1.1) APTT 106.8 H* (26.7-34.1) SEC Sodium 136 (135-145) mmol/L Potassium 3.5 (3.3-5.1) mmol/L Chloride 107 (96-108) mmol/L Carbon Dioxide 21 L (22-29) mmol/L Anion Gap 12 (12-20) BUN 4 L (9-16) mg/dL Creatinine 0.48 L (0.5-1.4) mg/dL Estim Creat Clear Calc 251.1 Estimated GFR > 60 Random Glucose 84 (60-115) mg/dL Lactic Acid 0.7 (0.5-2.0) mmol/L Calcium 8.8 (8.4-10.2) mg/dL Total Bilirubin 0.5 (0.0-1.0) mg/dL Urine Color Yellow Urine Appearance Clear Urine pH 6.5 (5.0-9.0) Ur Specific [place] 1.015 (1.005-1.025) Urine Protein Negative (Neg-Trace) mg/dL Urine Glucose (UA) Negative (Negative) mg/dL Urine Ketones Negative (Negative) mg/dL Urine Blood Negative (Negative) Urine Nitrite Negative (Negative) Ur Leukocyte Esterase Negative (Negative) Influenza Type A (PCR) POSITIVE A (Negative) Influenza Type B (PCR) NEGATIVE (Negative) RSV RNA Qual (PCR) NEGATIVE (Negative) SARS-CoV-2 RNA (RT-PCR) NEGATIVE (Negative) Discharge Plan Discharge Clinical Impression: Scleroderma, Influenza A Patient Disposition: Home, Self-Care Instructions: Influenza (ED), Droplet Precautions (ED) Additional Instructions: Today in the emergency department we evaluated you for headache and fever. It was not until later in your workup and testing that we discovered you had influenza before this we were treating you with high precautions due to your immunocompromise status given the infusions you get for scleroderma. We feel that your headache is likely attributable to some dehydration and influenza. We discussed the possibility of having viral meningitis but we could not definitively diagnose this because you are on a blood thinner and we are unable to get brain/spinal fluid analysis without the potential for causing bleeding. While in the emergency department you received intravenous ketorolac, acetaminophen, as well as antibiotics including piperacillin, ceftriaxone, vancomycin and a steroid called dexamethasone. 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 You still had some residual headache that we are attributing to influenza and offered admission but you preferred discharged home as we discussed we will put you on flu medicine given your high-risk status please call your wool handler or other specialists that treat you for scleroderma and prescribed your monoclonal antibody infusion. Let them know you have been diagnosed with influenza have a bad headache. As we discussed return back to the emergency department at anytime for any severe worsening symptoms including severe headache vision changes motor or sensory symptoms persistent vomiting inability to tolerate fluids by mouth or other symptoms that we discussed. Prescriptions: New oseltamivir [Tamiflu] 75 mg capsule 75 mg PO BID 5 Days Qty: 10 0RF No Action omeprazole 40 mg capsule,delayed release(DR/EC) 40 mg PO DAILY Qty: 30 3RF (DME) blood pressure monitor Kit See Rx Instructions .Route Qty: 1 0RF Rx Instructions: As directed metoprolol succinate [Toprol XL] 25 mg tablet extended release 24 hr 25 mg PO DAILY Qty: 90 0RF Eliquis 5 mg tablet 5 mg PO BID 90 Days Qty: 180 1RF gabapentin 300 mg capsule 300 mg PO TID PRN (Reason: Pain) vitamin A 10,000 unit capsule 1 cap PO DAILY ergocalciferol (vitamin D2) 1,250 mcg (50,000 unit) capsule 1,250 mcg PO MO zinc sulfate 50 mg zinc (220 mg) capsule 100 mg PO BEDTIME (DME) COMPRESSION STOCKINGS (medium strength) - knee high See Rx Instructions .Route .MEDSUPPLY Qty: 2 0RF Rx Instructions: As directed oxycodone 5 mg tablet 5 mg PO Q6H PRN (Reason: severe ankle pain) Qty: 15 0RF Rx Instructions: take only as needed for severe pain Interventions: ED Discharge Assessment Last Done: 10/06/25 21:06 Discharge Date/Time: 10/06/25 21:06 Print Language: [place]
[2025-10-06 16:40] LABS: INTERNATIONAL NORM RATIO 1.2 (0.9-1.1); Prothrombin Time 14.8 SEC (11.2-13.5)
--- OUTSIDE RECORDS SUMMARY | 2025-10-06 16:40 | XMS_ITS | Clinical Summary ---
Author Organization [facility] Address [address] [place] [phone] Phone Care Team Providers Care Java Web Services Developer Name Role Phone Juan Manuel Soto MD Primary Care Provider Unavailabl e Immunizations Immunization Administration Dates Next Due DTP 06/18/1999, 8,05/18/1998,1997,03/18/1993 Hep B, ped/adol 08/09/2001,12/12/1999,11/07/1999 Hib (HbOC) 09/17/1999 IPV 06/18/1999, 8,02/15/1998,1992 MMR 11/18/1999,08/18/1999 Td (adult) (MBL), 2 Lf tetan us toxoid, PF, adsorbed 12/12/1999 Unknown Vaccine 02/16/1993,10/19/1988 Family History Relation Name Status Comments Brother 1 Alive Brother: Alive and well, Alive and well Brother 2 Alive Brother: Alive and well, Alive and well Father Alive Father: Alive a nd well Mother Alive Mother: Alive a nd well Other Family history of Obesity, Family history of ADD/ADHD, Family history of Elevated cholesterol, Family history of Migraines Social History Tobacco Use Types Packs/Day Years Used Date Smoking Tobacco: Never Assessed Sex and Gender Information Value Date Recorded Sex Assigned at Not on file Legal Sex Male 4:16 PM EDT Gender Identity Not on file Sexual Orientation Not on file Plan of Treatment Health Maintenance Due Date Last Done Comments Varicella Vaccines (1 of 2 - 13+ 2-dose series) 2000 DTaP,Tdap,and Td Vaccines (5 - Tdap) 12/12/2009 12/12/1999, 06/18/1999, 07/18/1998, Additional history exists HPV Vaccines (1 - 3-dose SCDM series) 2014 Influenza Vaccines (#1) 2025 COVID-19 Vaccine ( season) 2025 IPV Vaccines Completed 06/18/1999, 04/20, 02/15/1998, Additional history exists HIB Vaccines Aged Out 09/17/1999 No longer eligi ble based on patient's age to complete this topic MMR Vaccines Completed 11/18/1999, 08/18/1999 Hepatitis B Vaccines Completed 08/09/2001, 12/12/1999, 11/07/1999 Hepatitis A Vaccines Aged Out No long er eligible based on patient's age to complete this topic Men B Vaccine Aged Out No longer elig ible based on patient's age to complete this topic Meningococcal Vaccine Aged Out No norm pema eligible based on patient's age to complete this topic Pneumococcal Vaccine Aged Out No long er eligible based on patient's age to complete this topic Care Teams Java Web Services Developer Relationship Specialty Start Date End Date Juan Manuel Soto MD PCP - General 05/29/17
--- OUTSIDE RECORDS SUMMARY | 2025-10-06 16:40 | XMS_ITS | Encounter Summary ---
Author Organization [facility] Address [address] [place] [phone] Phone Care Team Providers Care Assistant Principal Name Role Phone Jd Kumar MD Primary Care Provider [phone] Reason for Referral * Occupational Therapy (Routine) - Closed Specialty Diagnoses / Procedures Referred By Yaima estrada Referred To Contact Occupational Therapy Diagnoses Progressive systemic sclerosis Wei Doty PA Phone: tel: fax: [facility] [address] [place] [address] Phone: tel: Referral ID Status Reason Start Date Expiration Date Visits Re quested Visits Authorized [id number] Closed 07/05/2020 07/05/2021 99 99 Encounter Details Date Type Department Care Team (Latest Contact Info) Description 07/05/2020 Transcribe Orders [facility] Occup[facility] Therapy [facility] [address] [place] [address] Wei Doty PA [address] [place] [address] Encounter for rehabilitation (Primary Dx) Social History Tobacco Use Types Packs/Day Years Used Date Smoking Tobacco: Never Assessed Sex and Gender Information Value Date Recorded Sex Assigned at Not on file Legal Sex Male 2:21 PM EDT Gender Identity Not on file Sexual Orientation Not on file documented as of this encounter Plan of Treatment Scheduled Referrals Name Type Priority Associated Diagnoses Orde r Schedule Ambulatory referral to [facility] Occupational Therapy Outpatient Referral Routine Encounter for rehabilitation Ordered: 07/05/2020 documented as of this encounter Visit Diagnoses Diagnosis Encounter for rehabilitation- Primary documented in this encounter Care Teams Assistant Principal Relationship Specialty Start Date End Date Jd Kumar MD [address] [place] [address] [place] [address] PCP - General Internal Medicine 03/23/19 documented as of this encounter Additional Source Comments The information contained in this document represents components of the legal health record. It is not the complete legal health record.[facility]
--- OUTSIDE RECORDS SUMMARY | 2025-10-06 16:40 | XMS_ITS | Encounter Summary ---
Author Organization [facility] Address [address] [place] [phone] Phone Care Team Providers Care Urologic Surgeon Name Role Phone Jd Kumar MD Primary Care Provider [phone] Reason for Referral * Occupational Therapy (Routine) - Closed Specialty Diagnoses / Procedures Referred By Yaima estrada Referred To Contact Occupational Therapy Diagnoses Systemic sclerosis, unspecified System, Provider Not In, PhD [id number] [place] [id number] Phone: tel: Referral ID Status Reason Start Date Expiration Date Visits Re quested Visits Authorized [id number] Closed 03/31/2019 10/18/2019 9 9 Encounter Details Date Type Department Care Team (Latest Contact Info) Description 03/31/2019 Transcribe Orders [facility] Occupational Therapy Clinic [address] [place] [address] [place] [id number] Jd Kumar MD [address] [place] [address] [address] Encounter for rehabilitation (Primary Dx) Social History [...] Diagnoses Orde r Schedule Ambulatory referral to [facility] Occupational Therapy Outpatient Referral Routine Encounter for rehabilitation Ordered: 03/31/2019 documented as of this encounter Visit Diagnoses Diagnosis Encounter for rehabilitation- Primary documented in this encounter Care Teams Urologic Surgeon Relationship Specialty Start Date End Date Jd Kumar MD [address] [place] [address] [place] [address] PCP - General Internal Medicine 03/23/19 documented as of this encounter Additional Source Comments The information contained in this document represents components of the legal health record. It is not the complete legal health record.[facility]
--- OUTSIDE RECORDS SUMMARY | 2025-10-06 16:40 | XMS_ITS | Encounter Summary ---
Author Organization [facility] Address [address] [place] [phone] Phone Care Team Providers Care Homeowner Association Manager Name Role Phone Juan Manuel Soto MD Primary Care Provider Unavailabl e Encounter Details Date Type Department Care Team (Late st Contact Info) Description 06/04/2017 Conversion Encounter [facility] - [address] [address] Social History Tobacco Use Types Packs/Day Years Used Date Smoking Tobacco: Never Assessed Sex and Gender Information Value Date Recorded Sex Assigned at Not on file Legal Sex Male 4:16 PM EDT Gender Identity Not on file Sexual Orientation Not on file documented as of this encounter Plan of Treatment Not on file documented as of this encounter Visit Diagnoses Not on filedocumented in this encounter Care Teams Homeowner Association Manager Relationship Specialty Start Date End Date Juan Manuel Soto MD PCP - General 05/29/17 documented as of this encounter
--- OUTSIDE RECORDS SUMMARY | 2025-10-06 16:40 | XMS_ITS | Clinical Summary ---
Author Organization [facility] [place] [facility] it[facility] Address [address] [place] [address] Care Team Providers Care Racking Machine Operator Name Role Phone Unavailable Primary Care Provider Unavailabl e Social History Tobacco Use Types Packs/Day Years Used Date Smoking Tobacco: Never Assessed Sex and Gender Information Value Date Recorded Sex Assigned at Not on file Legal Sex Male 10:45 PM EST Gender Identity Not on file Sexual Orientation Not on file Plan of Treatment Health Maintenance Due Date Last Done Comments DTaP,Tdap,and Td Vaccines (1 - Tdap) 2006 Hepatitis B Vaccines (1 of 3 - 19+ 3-dose series) 2006 HPV Vaccines (1 - 3-dose SCD M series) 2014 Depression Screening 10/19/2024 COVID-19 Vaccine (1 - 2024-2 6 season) 2025 Influenza Vaccine (#1) 2025 RSV Immunization Adult Patie nts (1 - 1-dose 75+ series) 2062 HIB Vaccines Aged Out No longer eligi ble based on patient's age to complete this topic Hepatitis A Vaccines Aged Out No long er eligible based on patient's age to complete this topic IPV Vaccines Aged Out No longer eligi ble based on patient's age to complete this topic MMR Vaccines Aged Out No longer eligi ble based on patient's age to complete this topic Meningococcal ACWY Vaccine Aged Out N o longer eligible based on patient's age to complete this topic Meningococcal B Vaccine Aged Out No l onger eligible based on patient's age to complete this topic Pneumococcal Vaccine: Pediat rics (0 to 5 Years) and At-Risk Patients (6 to 49 Years) Aged Out No longer eligible b ased on patient's age to complete this topic RSV Immunization Patients Un lauren 20 months Aged Out No longer eligible b ased on patient's age to complete this topic Varicella Vaccines Aged Out No longer eligible based on patient's age to complete this topic
--- OUTSIDE RECORDS SUMMARY | 2025-10-06 16:40 | XMS_ITS | Data Portability ---
Author Organization [facility], [facility] Address [address] [place] [id number] Care Team Providers Care Interior Design Professor Name Role Phone HIM CCA OTHER Assessment No assessment recorded. Plan of Treatment Reminders Order Date Submit Date Provider Last Modified By Organization Details Last Modified Time Details Appointments None recorded. Lab None recorded. Referral None recorded. Procedures None recorded. Surgeries None recorded. Imaging None recorded. Medication Orders ondansetron HCl (PF) 4 mg/2 mL injection solution 2022 023 [email or web address] Not available 3 13:51:19 sodium chloride 0.9 % intravenous solution 2022 023 [email or web address] Not available 3 13:51:19 potassium chloride ER 20 mEq tablet,exte nded release 2022 023 [email or web address] Not available 3 13:51:19 Patient TargetsNo targets recorded. Patient InstructionsNo instructions recorded. Reason for Referral None Reported. Medical Equipment None Reported. Allergies Allergen ID Allergen Name Allergen Category Reaction Reaction Severity Criticality Documentation Date Start Date Code Code System Note Provider Name and Address Organization Details Recorded Time rituximab medicatio n Not available Not available [facility] 10/06/20252019 12207 1 RxNorm Not Available [employer] - prod 13:12:18 Shellfish (substanc e) food,medi cation Not available Not available [facility] 10/06/20252018 15452 9006 SNOMED Not Available [employer] - prod 13:12:18 Medications Name Sig Start Date Stop Date Status Note LastModified by Organization Details LastModified Time ibuprofen 800 mg tablet active Not Available Not Available No t Available prednisone 5 mg tablet TAKE 3 TABLETS (15 MG TOTAL) BY MOUTH DAILY FOR 30 DAYS. active Not Available Not Available No t Available omeprazole 40 mg capsule,delayed release TAKE 1 CAPSULE (40 MG TOTAL) BY MOUTH DAILY. active Not Available Not Available No t Available acetaminophen 500 mg tablet active Not Available Not Availabl e Not Available docusate sodium 100 mg capsule active Not Available Not Availab le Not Available ibuprofen 600 mg tablet active Not Available Not Available No t Available hydromorphone 4 mg tablet TAKE 1 TABLET (4 MG TOTAL) BY MOUTH EVERY 6 (SIX) HOURS NEEDED FOR PAIN FOR UP TO 20 DOSES. active Not Available Not Available No t Available ondansetron 4 mg disintegrating tablet active Not Available Not Available Not Available oxycodone 5 mg tablet active Not Available Not Available Not Available Vitals Date Recorded Heart rate Body temperature Respiratory rate Oxygen saturation Systolic blood pressure Provider Name and Address Organization Details Last Updated DateTime 3 100 /min 98.3 [degF] 18 /min 98 % 120 mm[Hg] Not Available [facility] - production 3 13:41:23 Social History None recorded. Functional Status None recorded. Mental Status None recorded. Family History Nothing Reported. Medical History No medical history recorded. Past Encounters Encounter ID Performer Location Encounter Start Date Encounter Closed Date Diagnosis/Indication Diagnosis SNOMED-CT Code Diagnosis ICD10 Code Diagnosis IMO Codes Diagnosis Note [id number] Cliff Tavera MD [facility] - [facility] [address] [place] [phone] 08/27/2023 13:20:19 08/28/2023 12:53:41 Nausea and vomiting 47549032 R11.2 Gastroente ritis and vomiting in setting of infusions. Awaiting PO Zofran script at pharmacy. Mild dehydration 6240912 119 108 E86.0 Will given 1L of NS now. Tolerated well. Discussed red flag signs and symptoms to present for higher level of care. Hypokalemia 67614067 E87 .6 Given vomiting, mild hypokalemi a. Will replete. Health Concerns Section Related Observation LastModified by Organization Detai ls LastModified Time None Recorded Concern Status LastModified by Organization Details LastModified Time None Recorded Advance Directives Directive None Recorded Payers Insurance Date Sequence Insurance Name Policy Number Policy Mata Covered Member ID Mata Member ID Guarantor Name 10/06/2025 1 [facility] - DOS ON OR AFTER 2023 - DUAL ELIGIBLE - HALFWAY OPTIONS AND ONE CARE (MEDICARE REPLACEMENT/ADV ANTAGE - HMO) Ray Solo [id number] Ray Solo Notes Date Note Type Note Provider Name and Address Organization Details Recorded Time 08/27/2023 text/html [facility] Nursing Assessment: Chief Complaints: Gastroenteritis, Nausea/Vomiting, Weakness/Lethargy, Syncope/Dizziness/ Lightheadedness PMH: Other Allergies: No Known Pain Assessment: Level 7 out of 10 Comments: Hospitalized 2 days ago with N/V/D. Diagnosed with Gastroenteritis. Symptoms ongoing for 3 days. Feeling weak and lightheaded. Unable to tolerate PO intake. c/o diffuse abdominal pain, rates 04/27. .................. .................. .................. .................. .................. .................. .................. ............... Surg Rn Note From Rosalia Krause: Community Surg Rn Chay Krause CCA1 dispatched to a [facility] for a 37 yom C/O N/V/D X4 days. Upon arrival, the pt was ambulatory, NGUYỄN X4, obviously not feeling well. He stated he had over 8 episodes of diarrhea followed by vomiting during the night, and that he still felt nauseous. He also reported feeling weak and had a headache as well. He was a [place] pt and was receiving infusions through his port weekly; he stated he had to reschedule an appt at the infusion center the following day. He went to [facility] ED 2 days prior, was given fluids and zofran IV, and was diagnosed w/ gastroenteritis. He denied dizziness, vision changes, syncope, falls, sore throat, cough, CP, SOB, abd pain when not vomiting, black or bloody stool, or urinary S/S. [facility] consulted; #24 placed in his left wrist and he was given 4 mg ondansetron and 1000 mL NS IV. BMP in [facility]. He was also given 40 mEq potassium PO. After 1L NS admin, pt reported feeling better overall. He did not have any episodes of N/V/D during prolonged [facility] visit. He had a rx for ondansetron PO waiting for him in the pharmacy from his ED visit. He was able to eat some soup and drink water without vomiting. He was encouraged to call back if his S/S persisted. Red flags discussed at length. .................. .................. .................. .................. .................. .................. .................. ............... Disposition: Fulfilled Cliff Tavera MD [address] [facility],[address], [place], [phone], ELIE - [facility] 08/27/2023 16:31:19
--- OUTSIDE RECORDS SUMMARY | 2025-10-06 16:40 | XMS_ITS | Clinical Summary ---
Author Organization [facility] Address [address] [address] Phone Care Team Providers Care Dental Lab Technician Name Role Phone Jd Kumar MD Primary Care Provider [phone] Social History Tobacco Use Types Packs/Day Years Used Date Smoking Tobacco: Never Assessed Education Answer Date Recorded Are you interested in more education? Not on maco e 02/12/2023 Are you concerned about learning? Not on file 02/12/2023 No 02/12/2023 No 02/12/2023 Digital Access Answer Date Recorded No 03/14/2023 No 03/14/2023 No 03/14/2023 Reliable internet access at home? Not on file 03/14/2023 Device with a working camera? Not on file Sex and Gender Information Value Date Recorded Sex Assigned at Not on file Legal Sex Male 2:21 PM EDT Gender Identity Not on file Sexual Orientation Not on file Plan of Treatment Health Maintenance Due Date Last Done Comments Adult Td,Tdap Booster 1987 DEPRESSION SCREENING 1999 SMOKING Hx and SMOKELESS TOBACCO SCREENING 2000 HEPATITIS C SCREENING 2005 HIV ONE-TIME SCREENING (18-6 5 YEARS) 2005 LIPID PANEL 03/17/2024 03/17/2019, 03/17/2019 INFLUENZA VACCINE (#1) 2025 COVID-19 VACCINE (2024-2 6 season) 2025 06/13/2021, 05/23/2021 HEPATITIS A VACCINES Aged Out No long er eligible based on patient's age to complete this topic HIB VACCINES Aged Out No longer eligi ble based on patient's age to complete this topic MENINGOCOCCAL VACCINES (ACWY) Aged Out No longer eligible based on patient's age to complete this topic MENINGOCOCCAL VACCINES (B) Aged Out N o longer eligible based on patient's age to complete this topic PNEUMOCOCCAL VACCINES (0-49 years) Aged Out No longer eligible b ased on patient's age to complete this topic Medical Devices Not on file Insurance MEDICARE PART A & B [employer] MEDICARE [place] Member Subscriber Plan / Payer (Ef fective 2019-) Name:Ray Solo Relation to Subscriber:Self Name:Ray Solo Payer ID:[id number] Group ID:Not on file Type:Medicaid Address: [address] [address] [place]ICARE [place] Member Subscriber Plan / Payer (Ef fective 2019-) Name:Ray Solo Relation to Subscriber:Self Name:Ray Solo Payer ID:[id number] Group ID:Not on file Type:Medicaid Address: [address] [address] [place]ICARE [place] [facility] B [facility] MEDICARE PART A & B MEDICARE PART A & B [facility] MEDICARE PART A & B Care Teams Dental Lab Technician Relationship Specialty Start Date End Date Jd Kumar MD [address] [place] [address] [place] [id number] PCP - General Internal Medicine 03/23/19 Additional Source Comments The information contained in this document represents components of the legal health record. It is not the complete legal health record.[facility]
[2025-10-06] MEDS: Lactated Ringers 1,000 ML 999 ML IV ×2 (17:13→19:32)
[2025-10-06 17:35] LABS: Anion Gap 12 (12-20); Blood Urea Nitrogen 4 mg/dL (9-16); Calcium 8.8 mg/dL (8.4-10.2); Carbon Dioxide 21 mmol/L (22-29); Chloride 107 mmol/L (96-108); Creatinine Clr Calc Pharmacy 251.1; Estimated Glomerular Filt Rate > 60; Potassium 3.5 mmol/L (3.3-5.1); Sodium 136 mmol/L (135-145)
[2025-10-06] MEDS: vancomycin/NS 2,000 MG/500 ML PLAST..BAG 250 MG IV (17:49)
[2025-10-06 18:34] LABS: Appearance Urine Clear; Glucose Urine UA Negative (Negative); PH 6.5 (5.0-9.0); Specific Gravity - Urine 1.015 (1.005-1.025)
[2025-10-06 18:41] LABS: Resp Syncy Virus RNA Qual PCR NEGATIVE (Negative); SARS COV2 PCR INHOUSE NEGATIVE (Negative)
--- NOTE | 2025-10-06 19:45 | PC.NURSE ---
pt medicated per mar with ivf and meds for ULLOA. pt requested cough suppressent and food/drinks. spoke with MD Patrick, stated he will go speak with patient regarding.
[2025-10-06 21:20] LABS: Partial Thromboplastin Time 106.8 SEC (26.7-34.1)
== END 2025-10-06 21:06 | disposition home or self-care (01) ==
PROVIDERS: Emergency Provider Emergency Medicine
DX: J10.1 Influenza due to other identified influenza virus with other respiratory manifestations (principal); M34.9 Systemic sclerosis, unspecified; R50.9 Fever, unspecified; R11.0 Nausea; R19.7 Diarrhea, unspecified; R05.9 Cough, unspecified; M79.10 Myalgia, unspecified site; R51.9 Headache, unspecified; M43.6 Torticollis; E66.3 Overweight; R10.23 Pelvic and perineal pain bilateral; M54.2 Cervicalgia; Z68.25 Body mass index [BMI] 25.0-25.9, adult; E55.9 Vitamin D deficiency, unspecified; I27.20 Pulmonary hypertension, unspecified; I48.91 Unspecified atrial fibrillation; Z03.818 Encounter for observation for suspected exposure to other biological agents ruled out; Z79.01 Long term (current) use of anticoagulants; Z79.899 Other long term (current) drug therapy
CPT/HCPCS: 36415; 70450; 71045; 80048; 81003; 82247; 83605; 85025; 85610; 85730; 87040; 87086; 87637; 96361; 96365; 96375; 99285; J0131; J0696; J1100; J1885; J2543; J2765; J3373; J7120

== ENCOUNTER → 2025-10-06 15:36 | Outpatient (BNV) | payer OTHER, SELFPAY | PROVIDERS: Emergency Provider Emergency Medicine; Visit Provider Radiology Diagnostic Radiology | DX: R51.9 Headache, unspecified (principal); R50.9 Fever, unspecified; J98.4 Other disorders of lung | CPT/HCPCS: 70450; 71045 ==